=== PATIENT | male | born 1980 | race Caucasian/White ===

== ENCOUNTER 2020-03-28 18:40 | Inpatient (IN) | payer OTHER ==
--- NOTE | 2020-03-28 18:59 | PDOC ---
Rapid Medical Evaluation Time Seen by Provider: 03/28/20 18:53 Medical Evaluation: Allergies Allergy/AdvReac Type Severity Reaction Status Date / Time No Known Allergies Allergy Verified 03/28/20 18:53 03/28/20 18:53 Pt with pmh of CHF with defibrillator, presents for evaluation of abdominal pain. States he finished a recent course of antibiotics. Admits to constipation Exam: Diffuse abdominal tenderness, worse in the LLQ Orders: labs, IV Pt to proceed to the ER for further evaluation Discharge Disposition - Diagnosis Abdominal pain Qualifiers: Abdominal location: unspecified location Qualified Code(s): R10.9 - Unspecified abdominal pain - Referrals - Patient Instructions - Post Discharge Activity
--- NOTE | 2020-03-28 20:21 | PDOC ---
History of Present Illness - General Chief Complaint: Pain, Acute Stated Complaint: ABDOMINAL PAIN Time Seen by Provider: 03/28/20 18:53 History Source: Patient Exam Limitations: No Limitations - History of Present Illness Travel History: No Initial Comments: 03/28/20 20:16 HISTORY OF PRESENT ILLNESS: 39-year-old male past medical history of A. fib, V. fib arrest, recently diagnosed CHF presents emergency department for evaluation of 20 episodes of loose watery stools since 12:00 noon. Patient is concerned that he is starting to have excoriations around his anus and was recently started on Eliquis. Patient reports when his AICD was placed he was prescribed Keflex for prophylactic treatment of potential infection. He denies any nausea or vomiting. No recent travel or sick contacts. PAST MEDICAL HISTORY: See HPI SURGICAL HISTORY: Denies ALLERGIES: No known drug allergies REVIEW OF SYSTEMS General/Constitutional: Denies fever or chills. Denies weakness, weight change. HEENT: Denies change in vision. Denies ear pain or discharge. Denies sore throat. Cardiovascular: Denies chest pain or shortness of breath. Respiratory: Denies cough, wheezing, or hemoptysis. Gastrointestinal: Genitourinary: Denies dysuria, frequency, or change in urination. Musculoskeletal: Denies joint or muscle swelling or pain. Denies neck or back pain. Skin and breasts: Denies rash or easy bruising. Neurologic: Denies headache, vertigo, loss of consciousness, or loss of sensation. Psychiatric: Denies depression or anxiety. Endocrine: Denies increased thirst. Denies abnormal weight change. Hematologic/Lymphatic: Denies anemia, easy bleeding, or history of blood clots. Allergic/Immunologic: Denies hives or skin allergy. Denies latex allergy. PHYSICAL EXAM General Appearance: Well-appearing, appropriately dressed. No apparent distress, no intoxication. Respiratory/Chest: Lungs CTAB. No shortness of breath, chest tenderness, respiratory distress, accessory muscle use. No crackles, rales, rhonchi, stridor, wheezing, dullness Cardiovascular: RRR. S1, S2. No JVD, murmur, bradycardia, tachycardia. Vascular Pulses: Dorsalis-Pedis (R): 2+, Dorsalis-Pedis (L): 2+ Gastrointestinal/Abdominal: Normal bowel sounds. Abdomen soft, non-distended. Diffuse lower abdominal tenderness worse on the left compared to right. Tenderness or rebound tenderness. No organomegaly, pulsatile mass, guarding, hernia, hepatomegaly, splenomegaly. Negative psoas, obturator and Rovsing signs. Past History - Medical History Allergies/Adverse Reactions: Allergies Allergy/AdvReac Type Severity Reaction Status Date / Time No Known Allergies Allergy Verified 03/28/20 18:53 Home Medications: Ambulatory Orders NK [No Known Home Medication] 03/02/20 Anemia: No Asthma: No Cancer: No Cardiac Disorders: Yes (DFIB PLACED) CVA: No COPD: No CHF: No Dementia: No Diabetes: No GI Disorders: No Disorders: No HTN: Yes Hypercholesterolemia: No Liver Disease: No Seizures: No Thyroid Disease: No - Surgical History Cardiac Surgery: Yes (DFIB PLACED) - Immunization History Immunization Up to Date: Yes - Psycho-Social/Smoking History Smoking History: Never smoked Have you smoked in the past 12 months: No Number of Cigarettes Smoked Daily: 0 - Substance Abuse Hx (Audit-C & DAST Scrn) How often the patient has a drink containing alcohol: Never Score: In Men: 4 or > Positive; In Women: 3 or > Positive: 0 Screen Result (Pos requires Nsg. Audit-10AR): Negative In the last yr the pt used illegal drug/Rx for NonMed reason: No Score: Yes response is considered Positive: 0 Screen Result (Positive result requires Nsg. DAST-10): Negative *Physical Exam - Vital Signs Last Vital Signs Temp Pulse Resp BP Pulse Ox 98.4 F 96 H 20 125/79 100 03/28/20 18:53 03/28/20 18:53 03/28/20 18:53 03/28/20 18:53 03/28/20 18:53 ED Treatment Course - LABORATORY CBC & Chemistry Diagram: 03/28/20 20:50 03/28/20 20:50 Medical Decision Making - Medical Decision Making 03/28/20 20:20 A/P: 39-year-old male with recent diagnosis of heart failure status post AICD started on antibiotics prophylactically after surgery. Now with 20 episodes of watery stools since 12:00 noon Physical exam notable for diffuse lower abdominal tenderness. Tenderness worse on the left with guarding present to the left abdomen. Most likely with C. difficile colitis given recent antibiotic use but as tenderness is bilateral I will get a CT abdomen and pelvis with p.o. and IV contrast to rule out appendicitis. Labs per E We will hold off on IV fluids now as patient has been started on spironolactone as well as torsemide Reassess 03/29/20 00:49 Laboratory Tests 03/28/20 03/28/20 03/28/20 20:50 20:50 20:50 WBC 15.1 H RBC 3.73 L Hgb 13.0 Hct 37.6 MCV 100.8 H MCH 34.9 H MCHC 34.6 RDW 17.9 H Plt Count 267 D MPV 8.4 Absolute Neuts (auto) 11.5 H Neutrophils % 76.2 Lymphocytes % 12.4 Monocytes % 10.4 H Eosinophils % 0.4 D Basophils % 0.6 Nucleated RBC % 0 PT with INR 16.70 H INR 1.41 H Sodium 134 L Potassium 3.5 Chloride 97 L Carbon Dioxide 28 Anion Gap 9 BUN 7.6 Creatinine 0.9 Est GFR (CKD-EPI)AfAm 125.13 Est GFR (CKD-EPI)NonAf 107.97 Random Glucose 107 H Calcium 9.6 Total Bilirubin 1.5 H D AST 37 ALT 34 Alkaline Phosphatase 175 H Total Protein 7.7 Albumin 3.7 Urine Color Urine Appearance Urine pH Ur Specific [place] Urine Protein Urine Glucose (UA) Urine Ketones Urine Blood Urine Nitrite Urine Bilirubin Urine Urobilinogen Ur Leukocyte Esterase 03/28/20 23:15 WBC RBC Hgb Hct MCV MCH MCHC RDW Plt Count MPV Absolute Neuts (auto) Neutrophils % Lymphocytes % Monocytes % Eosinophils % Basophils % Nucleated RBC % PT with INR INR Sodium Potassium Chloride Carbon Dioxide Anion Gap BUN Creatinine Est GFR (CKD-EPI)AfAm Est GFR (CKD-EPI)NonAf Random Glucose Calcium Total Bilirubin AST ALT Alkaline Phosphatase Total Protein Albumin Urine Color Dk yellow Urine Appearance Clear Urine pH 5.5 Ur Specific [place] 1.017 Urine Protein Trace Urine Glucose (UA) Negative Urine Ketones Trace H Urine Blood Negative Urine Nitrite Negative Urine Bilirubin Negative Urine Urobilinogen 1.0 Ur Leukocyte Esterase Negative CT scan is read by imaging on-call: Lung bases are clear. The visualized cardiac chambers are normal size and configuration. Normal liver, gallbladder, pancreas, spleen, adrenal glands and kidneys. The stomach and small bowel are normal. Diffuse liquid stool is noted without colonic wall thickening which may indicate a diarrheal illness. There is no aortic aneurysm. There is no significant retroperitoneal lymphadenopathy. Mild lower abdominal and pelvic retroperitoneal edema is nonspecific. No focal hematoma or abscess. No evidence of arterial or venous clots. The appendix is normal. Urinary bladder and prostate glands are normal. No pelvic free fluid is identified. There is no significant pelvic lymphadenopathy. 03/29/20 02:23 Case d/w hospitalist who accepts patient to M/S obs under Dr. Oliver. 03/29/20 03:10 EKG sinus rhythm with rate of 82. Prolonged QTC 486 ms. T wave inversions noted in V2, V3, V4. Given patient's history these are likely not new but I will add cardiac profile. Discharge - Discharge Information Problems reviewed: Yes Clinical Impression/Diagnosis: Diarrhea of presumed infectious origin Condition: Fair - Admission Yes - Follow up/Referral - Patient Discharge Instructions - Post Discharge Activity
--- NOTE | 2020-03-28 20:23 | PDOC ---
*Physical Exam - Vital Signs Last Vital Signs Temp Pulse Resp BP Pulse Ox 98.4 F 96 H 20 125/79 100 03/28/20 18:53 03/28/20 18:53 03/28/20 18:53 03/28/20 18:53 03/28/20 18:53 ED Treatment Course - LABORATORY CBC & Chemistry Diagram: 03/28/20 20:50 03/28/20 20:50 Medical Decision Making - Medical Decision Making 03/28/20 20:23 Patient seen by the advanced practice provider under my supervision. Ancillary testing reviewed as necessary. I agree with plan as outlined by the advanced practice provider. Discharge - Discharge Information Problems reviewed: Yes Clinical Impression/Diagnosis: Abdominal pain Qualifiers: Abdominal location: unspecified location Qualified Code(s): R10.9 - Unspecified abdominal pain - Follow up/Referral - Patient Discharge Instructions - Post Discharge Activity
[2020-03-28 21:24] LABS: BASO % 0.6 % (0-2.0); EOS % 0.4 % (0-4.5); HEMATOCRIT 37.6 % (35.4-49); LYMPH % 12.4 % (8-40); MCH 34.9 pg (25.7-33.7); MCHC 34.6 g/dl (32.0-35.9); MEAN CELL VOLUME 100.8 fl (80-96); MEAN PLT VOLUME 8.4 fl (7.5-11.1); MONO % 10.4 % (3.8-10.2); NEUT % 76.2 % (42.8-82.8); PLATELET COUNT 267 K/MM3 (134-434); RBC 3.73 M/mm3 (4.00-5.60); RDW 17.9 % (11.9-15.9); WHITE BLOOD COUNT 15.1 K/mm3 (4.0-10.0)
[2020-03-28 21:32] LABS: ALBUMIN 3.7 g/dl (3.4-5.0); BILIRUBIN,TOTAL 1.5 mg/dL (0.2-1); BLOOD UREA NITROGEN 7.6 mg/dL (7-18); CALCIUM 9.6 mg/dL (8.5-10.1); CREATININE 0.9 mg/dL (0.55-1.3); POTASSIUM 3.5 mmol/L (3.5-5.1); TOT PROT 7.7 g/dl (6.4-8.2)
[2020-03-28] MEDS ORDERED: LORazepam 2 MG/ML SDV VIAL ONE (21:43)
[2020-03-28 21:47] LABS: INR 1.41 (0.83-1.09); PROTHROMBIN TIME (PATIENT) 16.7 SEC (9.7-13.0)
[2020-03-28 23:32] LABS: PH,URINE 5.5 (5.0-8.0); URINE APPEARANCE CLEAR; URINE BILIRUBIN NEGATIVE (NEGATIVE); URINE COLOR DK YELLOW; URINE GLUCOSE (UA) NEGATIVE (NEGATIVE); URINE KETONE TRACE (NEGATIVE); URINE LEUK ESTERASE NEGATIVE (NEGATIVE); URINE NITRITE NEGATIVE (NEGATIVE); URINE PROTEIN TRACE (NEGATIVE)
[2020-03-29] MEDS ORDERED: SIMETHICONE 80 MG TAB.CHEW (FP) PO PRN (02:57)
[2020-03-29] MEDS ORDERED: LACTATED RINGERS SOLUTION 1,000 ML/1,000 ML INFUS.BAG IV SCH (03:00)
[2020-03-29] MEDS ORDERED: metroNIDAZOLE 500 MG TABLET PO ONE (04:00)
[2020-03-29] MEDS ORDERED: metroNIDAZOLE 250 MG TABLET ONE (04:55)
[2020-03-29] MEDS ORDERED: ACETAMINOPHEN 1000 MG/100 ML VIAL (NON FORMULARY) IVPB ONE (04:55)
[2020-03-29] MEDS ORDERED: VANCOMYCIN 250 MG/5 ML ORAL SOLUTION PO SCH (06:00)
--- NOTE | 2020-03-29 06:08 | PN ---
Teaching Attending Note ATTENDING PHYSICIAN STATEMENT I saw and evaluated the patient. I reviewed the resident's note and discussed the case with the resident. I agree with the resident's findings and plan as documented. SUBJECTIVE: 39 years old M with PMH of A fib , vfib arrest s/p defibrillator presented to ED with watery diarrhea aprox 16 times since yesterday noon associated with cramping abd pain. He also had few episodes of vomiting, non bloody. Patient reports when his AICD was placed he was prescribed Keflex for prophylactic treatment of potential infection. He denies chest pain, shortness of breath, dizziness, LOC, weakness. OBJECTIVE: Last Vital Signs Temp Pulse Resp BP Pulse Ox 98.4 F 78 18 122/80 99 03/28/20 18:53 03/28/20 23:30 03/28/20 23:30 03/28/20 23:30 03/28/20 23:30 GENERAL: Awake, alert, and fully oriented, no acute distress HEAD: No signs of trauma, normocephalic, atraumatic EYES: EOMI, sclera anicteric, conjunctiva clear ENT: Auricles normal inspection, hearing grossly normal, nares patent, oropharynx clear without exudates. Moist mucosa NECK: Normal ROM, no lymphadenopathy LUNGS: No increased work of breathing, symmetrical chest rise, clear to auscultation bilaterally, no wheezes, crackles or rhonchi HEART: Regular rate, regular rhythm, normal S1 and S2, no murmur, peripheral pulses 2+ and equal bilaterally. + AICD present ABDOMEN: Soft, nondistended, mild periumbilcal tenderness MUSCULOSKELETAL: FROM NEUROLOGICAL: Cranial nerves II through XII grossly intact. Normal speech, stable gait, no focal sensorimotor deficits SKIN: Warm, Dry, normal turgor, no rashes or lesions note ASSESSMENT AND PLAN: Acute gastroenteritis R/o C diff infection pMH as above Admit to floor Iv hydration give emperic IV ciprofloxacin and Flagyl Stool studies wbc, ova and parasites C diff check HIV Ct abd pelvis noted. No acute pathology resume home medications DVt ppx
[2020-03-29] MEDS ORDERED: HEPARIN NA (PORCINE) 5,000 UNITS/ML 1ML VIAL ONE ×2 (06:46→15:04)
[2020-03-29] MEDS: HEPARIN NA (PORCINE) 5,000 UNITS/ML 1ML VIAL SQ SCH ×2 (06:51→18:21)
--- NOTE | 2020-03-29 07:26 | HP ---
CHIEF COMPLAINT: 16 episodes of watery diarrhea with abdominal pain PCP: Dr. Gisselle Toscano HISTORY OF PRESENT ILLNESS: 39 year old male patient with past medical history that includes anxiety, CHF (EF 10-15%) with defibrillator, and Afib, who presented to the ED with abdominal pain and 16 episodes of watery diarrhea with some non-bloody vomiting since 12:00 noon. The patient had recently had the defibrillator placed and was prescribed Keflex prophylactically. The patient has tried to self-hydrate himself by drinking a lot of fluid. ER course was notable for: (1) ECG (2) WBC 15.1 (3) Ativan 1mg Recent Travel: Denies PAST MEDICAL HISTORY: CHF, AFib PAST SURGICAL HISTORY: Defibrillator insertion Social History: Smoking: Smoked 2 packs for 1 year (only 2 pack years) Alcohol: 2 bottles of wine daily but reported quitting his alcohol use during his hospital stay Drugs: Used opiates in the past. Denies current use Allergies No Known Allergies Allergy (Verified 03/28/20 18:53) HOME MEDICATIONS: Home Medications Medication Instructions Recorded NK [No Known Home Medication] 03/02/20 REVIEW OF SYSTEMS CONSTITUTIONAL: Absent: fever, chills, diaphoresis CARDIOVASCULAR: Absent: chest pain, palpitations RESPIRATORY: Absent: cough, shortness of breath GASTROINTESTINAL: watery diarrhea, abdominal pain Absent: PHYSICAL EXAMINATION Vital Signs - 24 hr 03/28/20 03/28/20 03/29/20 18:53 23:30 06:34 Temperature 98.4 F 98 F Pulse Rate 96 H Pulse Rate [ 78 82 Left Radial] Respiratory 20 18 16 Rate Blood Pressure 125/79 Blood Pressure 122/80 119/85 [Left Arm] O2 Sat by Pulse 100 99 99 Oximetry (%) GENERAL: Awake, alert, and fully oriented, in no acute distress. HEAD: Normal with no signs of trauma. EYES: Pupils equal, round and reactive to light, extraocular movements intact. No lid lag. EARS, NOSE, THROAT: Ears normal, nares patent, oropharynx clear without exudates. Moist mucous membranes. NECK: Normal range of motion, supple without lymphadenopathy, JVD, or masses. LUNGS: Breath sounds equal, clear to auscultation bilaterally. No wheezes, and no crackles. No accessory muscle use. HEART: Regular rate and rhythm, normal S1 and S2 without murmur, rub or gallop. ABDOMEN: Soft, tender to left lower quadrant, mildly distended, hyperactive bowel sounds, no guarding, no rebound, no masses. MUSCULOSKELETAL: Normal range of motion at all joints. No bony deformities or tenderness. UPPER EXTREMITIES: 2+ pulses, warm, well-perfused. No cyanosis. No clubbing. No peripheral edema. LOWER EXTREMITIES: 2+ pulses, warm, well-perfused. No calf tenderness. No peripheral edema. NEUROLOGICAL: Normal speech. Normal gait. PSYCHIATRIC: Cooperative. Good eye contact. Appropriate mood and affect. SKIN: Warm, dry, normal turgor, no rashes or lesions noted, normal capillary refill. Laboratory Results - last 24 hr 03/28/20 03/28/20 03/28/20 20:50 20:50 20:50 WBC 15.1 H RBC 3.73 L Hgb 13.0 Hct 37.6 MCV 100.8 H MCH 34.9 H MCHC 34.6 RDW 17.9 H Plt Count 267 D MPV 8.4 Absolute Neuts (auto) 11.5 H Neutrophils % 76.2 Lymphocytes % 12.4 Monocytes % 10.4 H Eosinophils % 0.4 D Basophils % 0.6 Nucleated RBC % 0 PT with INR 16.70 H INR 1.41 H Sodium 134 L Potassium 3.5 Chloride 97 L Carbon Dioxide 28 Anion Gap 9 BUN 7.6 Creatinine 0.9 Est GFR (CKD-EPI)AfAm 125.13 Est GFR (CKD-EPI)NonAf 107.97 Random Glucose 107 H Calcium 9.6 Total Bilirubin 1.5 H D AST 37 ALT 34 Alkaline Phosphatase 175 H Troponin I Total Protein 7.7 Albumin 3.7 Urine Color Urine Appearance Urine pH Ur Specific [place] Urine Protein Urine Glucose (UA) Urine Ketones Urine Blood Urine Nitrite Urine Bilirubin Urine Urobilinogen Ur Leukocyte Esterase 03/28/20 03/29/20 23:15 03:23 WBC RBC Hgb Hct MCV MCH MCHC RDW Plt Count MPV Absolute Neuts (auto) Neutrophils % Lymphocytes % Monocytes % Eosinophils % Basophils % Nucleated RBC % PT with INR INR Sodium Potassium Chloride Carbon Dioxide Anion Gap BUN Creatinine Est GFR (CKD-EPI)AfAm Est GFR (CKD-EPI)NonAf Random Glucose Calcium Total Bilirubin AST ALT Alkaline Phosphatase Troponin I < 0.02 Total Protein Albumin Urine Color Dk yellow Urine Appearance Clear Urine pH 5.5 Ur Specific [place] 1.017 Urine Protein Trace Urine Glucose (UA) Negative Urine Ketones Trace H Urine Blood Negative Urine Nitrite Negative Urine Bilirubin Negative Urine Urobilinogen 1.0 Ur Leukocyte Esterase Negative ASSESSMENT/PLAN: 39 year old male patient with past medical history that includes CHF with defibrillator and Afib, who presented to the ED with abdominal pain and 16 episodes of watery diarrhea with some non-bloody vomiting since 12:00 noon. 1. Colitis vs C. Diff. Infection - Antibiotics prescribed recently - WBC count 15.1 - C Diff toxin lab pending - Stool studies wbc, ova, and parasites - Cipro and Flagyl possibly - IV Fluids - HIV - CT A/P - resume home meds - ID consulted # FEN - LR @ 100, Monitoring Electrolytes, Sodium Controlled Diet DVT PPx - Heparin Family Medical History Family History: As Documented Family Hx Coronary Artery Disease: Father Visit type - Emergency Visit Emergency Visit: Yes ED Registration Date: 03/29/20 Care time: The patient presented to the Emergency Department on the above date and was hospitalized for further evaluation of their emergent condition. - New Patient This patient is new to me today: Yes Date on this admission: 03/29/20 - Critical Care Critical Care patient: No ATTENDING PHYSICIAN STATEMENT I saw and evaluated the patient. I reviewed the resident's note and discussed the case with the resident. I agree with the resident's findings and plan as documented. SUBJECTIVE: OBJECTIVE: ASSESSMENT AND PLAN:
[2020-03-29 09:02] LABS: BASO % 1.3 % (0-2.0); HEMATOCRIT 36.2 % (35.4-49); HEMOGLOBIN 12.7 GM/dL (11.7-16.9); LYMPH % 13.2 % (8-40); MEAN CELL VOLUME 99.9 fl (80-96); MEAN PLT VOLUME 7.9 fl (7.5-11.1); MONO % 9.5 % (3.8-10.2); PLATELET COUNT 245 K/MM3 (134-434); RBC 3.63 M/mm3 (4.00-5.60); RDW 18.2 % (11.9-15.9); WHITE BLOOD COUNT 11.1 K/mm3 (4.0-10.0)
[2020-03-29 09:31] LABS: ALBUMIN 3.5 g/dl (3.4-5.0); BILIRUBIN,TOTAL 1.3 mg/dL (0.2-1); BLOOD UREA NITROGEN 6.6 mg/dL (7-18); CALCIUM 9.2 mg/dL (8.5-10.1); CREATININE 0.7 mg/dL (0.55-1.3); POTASSIUM 3.1 mmol/L (3.5-5.1); TOT PROT 7.3 g/dl (6.4-8.2)
--- NOTE | 2020-03-29 09:50 | CON.CARD ---
Consult Consult Specialty:: Cardiology Referred by:: Hospitalist Service Reason for Consultation:: Cardiac evaluation - History of Present Illness Chief Complaint: Diarrhea and abdominal cramps History of Present Illness: Patient is a 39 year old male see last at [facility] in February when he was admitted with new onset AF with RVR and shortness of breath. He had been abusing ETOH and was diagnosed with dilated cardiomyopathy with severely low LVEF 10-15%, severe RV systolic dysfunction, moderate MR, mild to moderate TR. Hospital course was complicated by ETOH withdrawl, hypotension with anuria requiring pressors and eventual transfer to [facility] for further management. He was maintained on Milrinone and Vasopressin. He was intubated with worsening ETOH withdrawl. IABP was placed to improve perfusion and was given broad spectrum antibiotics with development of fever. Patient developed Torsades followed by loss of pulse, ACLS procotol initiated and ROSC was achieved with CPR. Lidocaine drip was given and then started on Mexiletine. Cardiac catheterization was performed which showed no evidence of CAD. Patient was also evaluated by Neurology for worsening delirium. Patient then had ICD implanted on 03/17/20. He was given Entresto, Metoprolol and Spironolactone and was discharged 1 week ago. HE presents today with worsening abdominal cramps and watery diarrhea. He denies chest pain, shortness of breath or palpitations. He denies fever or chills. He denies headache or lightheadedness. - History Source History Provided By: Patient, Medical Record Limitations to Obtaining History: No Limitations - Past Medical History Cardio/Vascular: Yes: AFIB, CHF (Dilated cardiomyopathy with severe LV systolic dysfunction), HTN, Other (Torsades, VT s/p ICD) Psych: Yes: Addictions (Alcohol) - Past Surgical History Additional Surgical History: ICD implantation - Alcohol/Substance Use Hx Alcohol Use: Yes (2 bottles of wine per day with his (past 5 years)) History of Substance Use: reports: None - Smoking History Smoking history: Never smoked Have you smoked in the past 12 months: No Aproximately how many cigarettes per day: 0 - Social History Usual Living Arrangement: With Spouse ADL: Independent History of Recent Travel: No Home Medications - Allergies Allergies/Adverse Reactions: Allergies Allergy/AdvReac Type Severity Reaction Status Date / Time No Known Allergies Allergy Verified 03/28/20 18:53 - Home Medications Home Medications: Ambulatory Orders NK [No Known Home Medication] 03/02/20 Family Medical History Family Hx Cancer: Mother (BCA) Family Hx Coronary Artery Disease: Father Review of Systems - Review of Systems Constitutional: denies: Chills, Fever Cardiovascular: denies: Chest Pain, Palpitations, Shortness of Breath Respiratory: denies: Cough, Hemoptysis, Orthopnea, PND, SOB, SOB on Exertion Gastrointestinal: reports: Abdominal Pain, Diarrhea. denies: Constipation, Melena, Nausea, Rectal Bleeding, Vomiting Genitourinary: denies: Dysuria, Hematuria Neurological: denies: Dizziness, Headache, Seizure, Syncope Vital Signs: Vital Signs Temperature 98 F 03/29/20 06:34 Pulse Rate 82 03/29/20 06:34 Respiratory Rate 16 03/29/20 06:34 Blood Pressure 119/85 03/29/20 06:34 O2 Sat by Pulse Oximetry (%) 99 03/29/20 06:34 Eyes: Yes: PERRL HENT: Yes: Atraumatic Neck: Yes: Supple Respiratory: Yes: CTA Bilaterally Gastrointestinal: Yes: Normal Bowel Sounds, Tenderness (diffuse tenderness to palpation) Cardiovascular: Yes: Regular Rate and Rhythm JVD: No PMI: Non-Displaced Heart Sounds: Yes: S1, S2. No: Gallop Edema: No - Other Data Labs, Other Data: CBC, BMP 03/29/20 08:30 03/29/20 08:30 INR, PTT INR 1.41 (0.83-1.09) H 03/28/20 20:50 Troponin, BNP 03/29/20 03:23 Troponin I < 0.02 Laboratory Results - last 24 hr 03/28/20 03/28/20 03/28/20 20:50 20:50 20:50 WBC 15.1 H RBC 3.73 L Hgb 13.0 Hct 37.6 MCV 100.8 H MCH 34.9 H MCHC 34.6 RDW 17.9 H Plt Count 267 D MPV 8.4 Absolute Neuts (auto) 11.5 H Neutrophils % 76.2 Lymphocytes % 12.4 Monocytes % 10.4 H Eosinophils % 0.4 D Basophils % 0.6 Nucleated RBC % 0 PT with INR 16.70 H INR 1.41 H Sodium 134 L Potassium 3.5 Chloride 97 L Carbon Dioxide 28 Anion Gap 9 BUN 7.6 Creatinine 0.9 Est GFR (CKD-EPI)AfAm 125.13 Est GFR (CKD-EPI)NonAf 107.97 POC Glucometer Random Glucose 107 H Calcium 9.6 Total Bilirubin 1.5 H D AST 37 ALT 34 Alkaline Phosphatase 175 H Troponin I Total Protein 7.7 Albumin 3.7 Urine Color Urine Appearance Urine pH Ur Specific [place] Urine Protein Urine Glucose (UA) Urine Ketones Urine Blood Urine Nitrite Urine Bilirubin Urine Urobilinogen Ur Leukocyte Esterase 03/28/20 03/29/20 03/29/20 23:15 03:23 07:35 WBC RBC Hgb Hct MCV MCH MCHC RDW Plt Count MPV Absolute Neuts (auto) Neutrophils % Lymphocytes % Monocytes % Eosinophils % Basophils % Nucleated RBC % PT with INR INR Sodium Potassium Chloride Carbon Dioxide Anion Gap BUN Creatinine Est GFR (CKD-EPI)AfAm Est GFR (CKD-EPI)NonAf POC Glucometer 113 Random Glucose Calcium Total Bilirubin AST ALT Alkaline Phosphatase Troponin I < 0.02 Total Protein Albumin Urine Color Dk yellow Urine Appearance Clear Urine pH 5.5 Ur Specific [place] 1.017 Urine Protein Trace Urine Glucose (UA) Negative Urine Ketones Trace H Urine Blood Negative Urine Nitrite Negative Urine Bilirubin Negative Urine Urobilinogen 1.0 Ur Leukocyte Esterase Negative 03/29/20 03/29/20 08:30 08:30 WBC 11.1 H RBC 3.63 L Hgb 12.7 Hct 36.2 MCV 99.9 H MCH 35.0 H MCHC 35.0 RDW 18.2 H Plt Count 245 MPV 7.9 Absolute Neuts (auto) 8.4 H Neutrophils % 75.0 Lymphocytes % 13.2 Monocytes % 9.5 Eosinophils % 1.0 D Basophils % 1.3 Nucleated RBC % 0 PT with INR INR Sodium 132 L Potassium 3.1 L Chloride 98 Carbon Dioxide 20 L Anion Gap 14 BUN 6.6 L Creatinine 0.7 Est GFR (CKD-EPI)AfAm 138.75 Est GFR (CKD-EPI)NonAf 119.71 POC Glucometer Random Glucose 104 Calcium 9.2 Total Bilirubin 1.3 H AST 44 H ALT 34 Alkaline Phosphatase 156 H Troponin I Total Protein 7.3 Albumin 3.5 Urine Color Urine Appearance Urine pH Ur Specific [place] Urine Protein Urine Glucose (UA) Urine Ketones Urine Blood Urine Nitrite Urine Bilirubin Urine Urobilinogen Ur Leukocyte Esterase Sinus rhythm with T abnormality anterior leads, prolonged QT Imaging - Results Chest X-ray: Report Reviewed (Atelectasis) Cat Scan: Report Reviewed (Abdominal CT: hepatosplenomegaly) EKG: Report Reviewed Problem List - Problems (1) Systolic dysfunction with acute on chronic heart failure Code(s): I50.23 - ACUTE ON CHRONIC SYSTOLIC (CONGESTIVE) HEART FAILURE (2) Presence of implantable cardioverter-defibrillator (ICD) Code(s): Z95.810 - PRESENCE OF AUTOMATIC (IMPLANTABLE) CARDIAC DEFIBRILLATOR (3) Ventricular tachycardia Code(s): I47.2 - VENTRICULAR TACHYCARDIA (4) Diarrhea of presumed infectious origin Code(s): R19.7 - DIARRHEA, UNSPECIFIED (5) Cardiomyopathy Code(s): I42.9 - CARDIOMYOPATHY, UNSPECIFIED (6) ETOH abuse Code(s): F10.10 - ALCOHOL ABUSE, UNCOMPLICATED (7) HTN (hypertension) Code(s): I10 - ESSENTIAL (PRIMARY) HYPERTENSION (8) Hyponatremia Code(s): E87.1 - HYPO-OSMOLALITY AND HYPONATREMIA Assessment/Plan 1. Diarrhea and abdominal pain ?C. Diff ?Gastroenteritis 2. Dilated cardiomyopathy with severe LV systolic dysfunction 3. Post ICD after episode of VT/Torsades 4. Substance abuse with ETOH 5. PAF currently in sinus rhythm PLAN: 1. Antibiotic to cover possible C. Diff and GI etiology 2. Resume Metoprolol Succinate 25 mg QD and Entresto 24/26 mg BID 3. Resume Spironolactone 25 mg QD and monitor renal function and electrolytes (NA and K) 4. Resume Eliquis 5 mg BID 5. Further cardiac follow up at [facility] upon discharge once stable GI tee. Further plans are to follow Ashwin Larson MD, FACC
[2020-03-29] MEDS ORDERED: CIPROFLOXACIN 500 MG TABLET (RESTRICTED TO ID) PO SCH (10:00)
--- NOTE | 2020-03-29 10:16 | EKG ---
Test Reason : Blood Pressure : / mmHG Vent. Rate : 082 BPM Atrial Rate : 082 BPM P-R Int : 136 ms QRS Dur : 096 ms QT Int : 416 ms P-R-T Axes : 058 -12 045 degrees QTc Int : 486 ms NORMAL SINUS RHYTHM T WAVE ABNORMALITY, CONSIDER ANTERIOR ISCHEMIA PROLONGED QT ABNORMAL ECG WHEN COMPARED WITH ECG OF 29-FEB-2020 20:28, SIGNIFICANT CHANGES HAVE OCCURRED Confirmed by MD Jessee, Car ([id number]) on 03/29/2020 10:15:59 AM Referred By: Confirmed By:Car Hooks MD
--- NOTE | 2020-03-29 11:28 | PN ---
Progress Note (short form) - Note Progress Note: ID CONSULT DICTATED COLITIS ? C DIFFICILE ? ENTERIC PATHOGENS LEUKOCYTOSIS R/O SEPSIS SECONDARY TO GI SOURCE S/P RECENT AICD AWAIT CULTURES, STOOL STUDIES EMPIRIC CEFTRIAXONE/FLAGYL + PO VANCOMYCIN
[2020-03-29] MEDS ORDERED: CEFTRIAXONE 2 GM in DEXTROSE 5%-WATER 100 ML IVPB SCH (11:30)
[2020-03-29] MEDS ORDERED: POTASSIUM CHLORIDE TABS 20 MEQ TABLET.ER (FP) PO ONE ×3 (11:30→20:00)
--- NOTE | 2020-03-29 11:32 | CONS ---
INFECTIOUS DISEASE CONSULTATION DATE OF CONSULTATION: DATE OF DICTATION: 03/29/2020 HISTORY: The patient is a 39-year-old male with a recently diagnosed cardiomyopathy and atrial fibrillation, status post implanted defibrillator, evaluated for diarrhea. The patient was hospitalized at [facility] from February 28 through March 02 after presenting with congestive heart failure and new onset atrial fibrillation. He was found to have a dilated cardiomyopathy presumably secondary to EtOH. His course was complicated by atrial fibrillation. He required transfer to [facility] where he was hospitalized for approximately 1 month. He reports at that time his course was complicated by respiratory failure requiring intubation. He ultimately required placement of an implanted defibrillator. The patient was discharged 1 week ago on Sunday, March 22, 2020. He reports being discharged on Keflex as antibiotic prophylaxis. Upon discharge the patient began to develop diarrhea. He reports multiple episodes of nonbloody diarrhea. His symptoms worsened. One day prior to admission he developed worsening abdominal pain mostly in the lower quadrants bilaterally, left greater than right, associated with multiple bouts of nonbloody diarrhea. He denied any vomiting or associated fever or chills. He presented to the emergency room where he was noted to have an elevated white blood cell count. CAT scan of the abdomen and pelvis showed some retroperitoneal edema, but no evidence of colitis. The appendix appeared normal. He was empirically treated with p.o. vancomycin, IV ciprofloxacin and Flagyl. At the present time he reports abdominal pain. He describes it as 10 out of 10 mostly in the lower quadrants bilaterally. He had 2 loose bowel movements today nonbloody. He denied any nausea or vomiting. He has been afebrile. Cultures and stool studies have been sent. He lives at home with his . His is well without any GI symptoms. He has not traveled since his discharge from the hospital. PAST MEDICAL HISTORY: Positive for recent diagnosis of cardiomyopathy, atrial fibrillation, alcohol abuse. ALLERGIES: No known allergies. MEDICATIONS AT THE PRESENT TIME: Include ciprofloxacin, Flagyl, heparin, Tylenol, melatonin. SOCIAL HISTORY: Lives at home with his . 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 He has not been working since the onset of the pandemic. He has been out of work for approximately 7 months. He is a nonsmoker. He reports alcohol use, approximately 2 bottles of wine per day with his . No known HIV risk factors. HIV test is pending. He is and has small children with whom he has limited contact. SYSTEMS REVIEW: Neurologic: No loss of consciousness, seizure activity, focal weakness. Cardiac: As per HPI. Respiratory: As per HPI. Gastrointestinal: As per HPI. Genitourinary: Negative for urinary tract infection. LABORATORY DATA: White count 15.1, neutrophils 76, lymphocytes 12, monocytes 10, hematocrit 37.6, platelets 267. Creatinine 0.7, total bilirubin 1.3, alkaline phosphatase 156, AST 44. Urine analysis negative. Chest x-ray shows atelectasis at the right base. CAT scan of the abdomen as described. Stool studies are pending. PHYSICAL EXAMINATION: General: He is awake and alert. He is in no acute distress. Vital Signs: Temperature 98, blood pressure 119/85, pulse 82 regular, respirations 16 per minute. HEENT: Sclerae are anicteric. Heart: Sounds S1, S2. Lungs: Clear. Abdomen: Positive bowel sounds. Abdomen is soft. There is lower quadrant tenderness to deep palpation. Extremities: Negative for edema. There is desquamation of the plantar aspects of his feet bilaterally. IMPRESSION: 1. Colitis, rule out infectious colitis versus Clostridium difficile. 2. Leukocytosis, rule out sepsis secondary to gastrointestinal source. 3. Status post recent defibrillator placement. 4. Cardiomyopathy. Obtain blood cultures, stool cultures, stool ova and parasites, Clostridium difficile, stool for giardia, rotavirus and norovirus. Pending sepsis workup empiric antibiotic coverage with ceftriaxone and Flagyl intravenously and p.o. vancomycin. Will follow. Thank you for the kind referral. APARNA IRVING M.D. [id number]
[2020-03-29] MEDS ORDERED: traMADol HCL 50 MG TABLET PO ONE (13:59)
[2020-03-29] MEDS ORDERED: metoPROLOL SUCCINATE 25 MG TAB.SR.24H (FP) ONE (15:03)
[2020-03-29] MEDS ORDERED: traMADol HCL 50 MG TABLET ONE (15:03)
[2020-03-29] MEDS: metoPROLOL SUCCINATE 25 MG TAB.SR.24H (FP) PO SCH (15:14)
--- NOTE | 2020-03-29 15:20 | PN ---
Teaching Attending Note Name of Resident: Rita Rodgers ATTENDING PHYSICIAN STATEMENT I saw and evaluated the patient. I reviewed the resident's note and discussed the case with the resident. I agree with the resident's findings and plan as documented. SUBJECTIVE: Complains of abdominal discomfort and watery diarrhea - no fever/chills. Nausea/vomiting resolving. OBJECTIVE: Afebrile, Hemodynamically stable Last Vital Signs Temp Pulse Resp BP Pulse Ox 98.6 F 86 18 155/91 96 03/29/20 12:00 03/29/20 12:00 03/29/20 12:00 03/29/20 12:03/29/20 12:00 HEENT - Atraumatic, Normocephalic. Heart - S1, S2, RRR. AICD incision site mild tenderness, clean Lungs - clear to auscultation Abdomen - soft, mild generalized tenderness. Bowel Sounds normal. Extremities - no edema, no calf tenderness. Neuro - AAO x 3. Tone/Power normal all extremities. Mild tremor outstretched arms. Anxious+ Laboratory Results - last 24 hr 03/28/20 03/28/20 03/28/20 20:50 20:50 20:50 WBC 15.1 H RBC 3.73 L Hgb 13.0 Hct 37.6 MCV 100.8 H MCH 34.9 H MCHC 34.6 RDW 17.9 H Plt Count 267 D MPV 8.4 Absolute Neuts (auto) 11.5 H Neutrophils % 76.2 Lymphocytes % 12.4 Monocytes % 10.4 H Eosinophils % 0.4 D Basophils % 0.6 Nucleated RBC % 0 PT with INR 16.70 H INR 1.41 H Sodium 134 L Potassium 3.5 Chloride 97 L Carbon Dioxide 28 Anion Gap 9 BUN 7.6 Creatinine 0.9 Est GFR (CKD-EPI)AfAm 125.13 Est GFR (CKD-EPI)NonAf 107.97 POC Glucometer Random Glucose 107 H Calcium 9.6 Total Bilirubin 1.5 H D AST 37 ALT 34 Alkaline Phosphatase 175 H Troponin I Total Protein 7.7 Albumin 3.7 Urine Color Urine Appearance Urine pH Ur Specific [place] Urine Protein Urine Glucose (UA) Urine Ketones Urine Blood Urine Nitrite Urine Bilirubin Urine Urobilinogen Ur Leukocyte Esterase 03/28/20 03/29/20 03/29/20 23:15 03:23 07:35 WBC RBC Hgb Hct MCV MCH MCHC RDW Plt Count MPV Absolute Neuts (auto) Neutrophils % Lymphocytes % Monocytes % Eosinophils % Basophils % Nucleated RBC % PT with INR INR Sodium Potassium Chloride Carbon Dioxide Anion Gap BUN Creatinine Est GFR (CKD-EPI)AfAm Est GFR (CKD-EPI)NonAf POC Glucometer 113 Random Glucose Calcium Total Bilirubin AST ALT Alkaline Phosphatase Troponin I < 0.02 Total Protein Albumin Urine Color Dk yellow Urine Appearance Clear Urine pH 5.5 Ur Specific [place] 1.017 Urine Protein Trace Urine Glucose (UA) Negative Urine Ketones Trace H Urine Blood Negative Urine Nitrite Negative Urine Bilirubin Negative Urine Urobilinogen 1.0 Ur Leukocyte Esterase Negative 03/29/20 03/29/20 08:30 08:30 WBC 11.1 H RBC 3.63 L Hgb 12.7 Hct 36.2 MCV 99.9 H MCH 35.0 H MCHC 35.0 RDW 18.2 H Plt Count 245 MPV 7.9 Absolute Neuts (auto) 8.4 H Neutrophils % 75.0 Lymphocytes % 13.2 Monocytes % 9.5 Eosinophils % 1.0 D Basophils % 1.3 Nucleated RBC % 0 PT with INR INR Sodium 132 L Potassium 3.1 L Chloride 98 Carbon Dioxide 20 L Anion Gap 14 BUN 6.6 L Creatinine 0.7 Est GFR (CKD-EPI)AfAm 138.75 Est GFR (CKD-EPI)NonAf 119.71 POC Glucometer Random Glucose 104 Calcium 9.2 Total Bilirubin 1.3 H AST 44 H ALT 34 Alkaline Phosphatase 156 H Troponin I Total Protein 7.3 Albumin 3.5 Urine Color Urine Appearance Urine pH Ur Specific [place] Urine Protein Urine Glucose (UA) Urine Ketones Urine Blood Urine Nitrite Urine Bilirubin Urine Urobilinogen Ur Leukocyte Esterase Current Medications Generic Name Dose Route Start Last Admin Trade Name Freq PRN Reason Stop Dose Admin Apixaban 5 mg 03/29/20 12:45 Eliquis - PO BID JIMMY Heparin Sodium (Porcine) 5,000 unit 03/29/20 06:00 03/29/20 06:51 Heparin - SQ 5,000 unit TID JIMMY Administration Melatonin 10 mg 03/29/20 22:00 Melatonin PO HS JIMMY Metoprolol Succinate 25 mg 03/29/20 12:30 Toprol Xl - PO DAILY JIMMY Potassium Chloride 40 meq 03/29/20 20:00 K-Dur - PO 08/25/20 20:01 ONCE ONE Sacubitril/Valsartan 1 tab 03/29/20 12:30 Entresto 24 Mg-26 Mg Tablet PO BID [facility] Spironolactone 25 mg 03/30/20 10:00 Aldactone - PO DAILY [facility] Vancomycin HCl 125 mg 03/29/20 12:00 Vancomycin Oral Solution PO Q6HPO [facility] ASSESSMENT AND PLAN: 39 year old male with history of prior substance abuse (Alcohol, cocaine, heroin), Anxiety, Chronic Systolic CHF (EF 10-15%) s/p AICD, Atrial Fibrillation on Eliquis, who presented to the ED with abdominal pain, and profuse watery diarrhea after recent prophylactic Abx after AICD placement. CT A/P - no acute intra-abdominal pathology, retroperitoneal edema, diffuse fatty infiltrate. 1. Diarrhea secondary to Cdiff infection Stool positive for Cdiff Leukocytosis improving, Afebrile. Oral hydration adequate for now PO Vancomycin 2. Chronic Systolic CHF/Cardiomyopathy s/p AICD Evaluated by Cardiology - to resume BB, Entresto, Spironolactone. 3. Atrial fibrillation - resume BB and Eliquis. 4. Hx Substance abuse - reports remote history of alcohol, cocaine, heroin. Mild tremor, no overt withdrawal symptoms, will monitor. Will continue MVI, Thiamine, Folic Acid. 5. Anxiety - will confirm and resume home meds. DVT Px - on Eliquis.
--- NOTE | 2020-03-29 15:47 | PN ---
Physical Exam: SUBJECTIVE: Patient seen and examined. Still complaining of watery diarrhea and abdominal pain. Nausea/vomiting has resolved. Denies any f/c. Pt also states he is anxious when he is in the hospital. OBJECTIVE: Vital Signs Period Temp Pulse Resp BP Sys/Andrea Pulse Ox Last 24 Hr 98 F-98.6 F 78-96 16-20 119-155/79-91 96-100 GENERAL: The patient is awake, alert, and fully oriented, in no acute distress. Anxious HEAD: Normal with no signs of trauma. EYES: PERRL, extraocular movements intact, sclera anicteric, conjunctiva clear. No ptosis. ENT: Ears normal, nares patent, oropharynx clear without exudates, moist mucous membranes. NECK: Trachea midline, full range of motion, supple. LUNGS: Breath sounds equal, clear to auscultation bilaterally, no wheezes, no crackles, no accessory muscle use. HEART: Regular rate and rhythm, S1, S2 without murmur, rub or gallop. AICD incision site ABDOMEN: Mild tender to palpation diffusely. Soft, nondistended, normoactive bowel sounds, no guarding, no rebound, no hepatosplenomegaly, no masses. EXTREMITIES: 2+ pulses, warm, well-perfused, no edema. NEUROLOGICAL: Cranial nerves II through XII grossly intact. Normal speech, gait not observed. Anxious PSYCH: Normal mood, normal affect. SKIN: Warm, dry, normal turgor, no rashes or lesions noted Laboratory Results - last 24 hr 03/28/20 03/28/20 03/28/20 20:50 20:50 20:50 WBC 15.1 H RBC 3.73 L Hgb 13.0 Hct 37.6 MCV 100.8 H MCH 34.9 H MCHC 34.6 RDW 17.9 H Plt Count 267 D MPV 8.4 Absolute Neuts (auto) 11.5 H Neutrophils % 76.2 Lymphocytes % 12.4 Monocytes % 10.4 H Eosinophils % 0.4 D Basophils % 0.6 Nucleated RBC % 0 PT with INR 16.70 H INR 1.41 H Sodium 134 L Potassium 3.5 Chloride 97 L Carbon Dioxide 28 Anion Gap 9 BUN 7.6 Creatinine 0.9 Est GFR (CKD-EPI)AfAm 125.13 Est GFR (CKD-EPI)NonAf 107.97 POC Glucometer Random Glucose 107 H Calcium 9.6 Total Bilirubin 1.5 H D AST 37 ALT 34 Alkaline Phosphatase 175 H Troponin I Total Protein 7.7 Albumin 3.7 Urine Color Urine Appearance Urine pH Ur Specific [place] Urine Protein Urine Glucose (UA) Urine Ketones Urine Blood Urine Nitrite Urine Bilirubin Urine Urobilinogen Ur Leukocyte Esterase 03/28/20 03/29/20 03/29/20 23:15 03:23 07:35 WBC RBC Hgb Hct MCV MCH MCHC RDW Plt Count MPV Absolute Neuts (auto) Neutrophils % Lymphocytes % Monocytes % Eosinophils % Basophils % Nucleated RBC % PT with INR INR Sodium Potassium Chloride Carbon Dioxide Anion Gap BUN Creatinine Est GFR (CKD-EPI)AfAm Est GFR (CKD-EPI)NonAf POC Glucometer 113 Random Glucose Calcium Total Bilirubin AST ALT Alkaline Phosphatase Troponin I < 0.02 Total Protein Albumin Urine Color Dk yellow Urine Appearance Clear Urine pH 5.5 Ur Specific [place] 1.017 Urine Protein Trace Urine Glucose (UA) Negative Urine Ketones Trace H Urine Blood Negative Urine Nitrite Negative Urine Bilirubin Negative Urine Urobilinogen 1.0 Ur Leukocyte Esterase Negative 03/29/20 03/29/20 08:30 08:30 WBC 11.1 H RBC 3.63 L Hgb 12.7 Hct 36.2 MCV 99.9 H MCH 35.0 H MCHC 35.0 RDW 18.2 H Plt Count 245 MPV 7.9 Absolute Neuts (auto) 8.4 H Neutrophils % 75.0 Lymphocytes % 13.2 Monocytes % 9.5 Eosinophils % 1.0 D Basophils % 1.3 Nucleated RBC % 0 PT with INR INR Sodium 132 L Potassium 3.1 L Chloride 98 Carbon Dioxide 20 L Anion Gap 14 BUN 6.6 L Creatinine 0.7 Est GFR (CKD-EPI)AfAm 138.75 Est GFR (CKD-EPI)NonAf 119.71 POC Glucometer Random Glucose 104 Calcium 9.2 Total Bilirubin 1.3 H AST 44 H ALT 34 Alkaline Phosphatase 156 H Troponin I Total Protein 7.3 Albumin 3.5 Urine Color Urine Appearance Urine pH Ur Specific [place] Urine Protein Urine Glucose (UA) Urine Ketones Urine Blood Urine Nitrite Urine Bilirubin Urine Urobilinogen Ur Leukocyte Esterase Active Medications Generic Name Dose Route Start Last Admin Trade Name Freq PRN Reason Stop Dose Admin Apixaban 5 mg 03/29/20 12:45 Eliquis - PO BID JIMMY Folic Acid 1 mg 03/29/20 15:30 Folic Acid - PO DAILY JIMMY Melatonin 10 mg 03/29/20 22:00 Melatonin PO HS JIMMY Metoprolol Succinate 25 mg 03/29/20 12:30 03/29/20 15:14 Toprol Xl - PO 25 mg DAILY [facility] Administration Multivitamins/Minerals/Vitamin C 1 tab 03/29/20 15:30 Tab-A-Vit - PO DAILY [facility] Potassium Chloride 40 meq 03/29/20 20:00 K-Dur - PO 03/29/20 20:01 ONCE ONE Sacubitril/Valsartan 1 tab 03/29/20 12:30 Entresto 24 Mg-26 Mg Tablet PO BID [facility] Spironolactone 25 mg 03/30/20 10:00 Aldactone - PO DAILY [facility] Thiamine HCl 100 mg 03/29/20 15:30 Vitamin B1 - PO DAILY JIMMY Vancomycin HCl 125 mg 03/29/20 12:00 Vancomycin Oral Solution PO Q6HPO [facility] ASSESSMENT/PLAN: Pt is a 39 year old male with PMHx of HFrEF s/p AICD palcement, A fib, history of substance abuse presenting with multiple bouts of diarrhea daily after being on ppx Keflex for AICD placement. Cultures positive for C diff. #Diarrhea 2/2 to C diff -Recent Keflex use - prophylaxis for AICD placement -Pt still complaining of multiple bouts of watery diarrhea -Cultures positive for C diff -Was given Rocephin and flagyl -Only on PO vancomycin currently #Chronic HFrEF s/p AICD placement -Recent AICD placement for HFrEF and EF 10-15% -Seen by Cardio (Dr. Og); resume metoprolol succinate 25mgQD, entresto 24/26 mg BID, spironolactone 25mg QD #Atrial fibrillation -Per cardio, resume Eliquis 5mg BID and metoprolol succinate 25mgQD #Hx of substance abuse -Daily drinking history prior to surgery, remote cocaine and heroin use per patient; continue to monitor for withdrawal sx -Mild tremor noted -Thiamine and folate and multivitamins for alcohol FEN: -Sodium controlled diet -Monitor electrolytes -Avoid fluids Prophylaxis: On eliquis Dispo: Admitted to med-surg. C diff positive, being treated currently with PO vancomycin. Hx of recent AICD placement and CHF, afib being followed by cardio, continued home meds. Visit type - Emergency Visit Emergency Visit: Yes ED Registration Date: 03/29/20 Care time: The patient presented to the Emergency Department on the above date and was hospitalized for further evaluation of their emergent condition. - New Patient This patient is new to me today: Yes Date on this admission: 03/29/20 - Critical Care Critical Care patient: No ATTENDING PHYSICIAN STATEMENT I saw and evaluated the patient. I reviewed the resident's note and discussed the case with the resident. I agree with the resident's findings and plan as documented. SUBJECTIVE: OBJECTIVE: ASSESSMENT AND PLAN:
[2020-03-29] MEDS: VANCOMYCIN 250 MG/5 ML ORAL SOLUTION PO SCH ×2 (16:10→18:54)
[2020-03-29] MEDS: SACUBITRIL/VALSARTAN 24 MG-26 MG TABLET PO SCH ×2 (16:11→23:11)
[2020-03-29] MEDS: APIXABAN 5 MG TABLET PO SCH ×2 (16:11→22:37)
[2020-03-29 17:48] VITALS: BMI 25.5
[2020-03-29] MEDS: FOLIC ACID 1 MG TABLET (FP) PO SCH (18:26)
[2020-03-29] MEDS: MULTIVITAMINS (DAILY MVI) TABLET (FP) PO SCH (18:26)
[2020-03-29] MEDS: THIAMINE HCL 100 MG TABLET (FP) PO SCH (18:27)
[2020-03-29] MEDS ORDERED: PT OWN MED DRAWER 7, Y5N ONE ×2 (18:57→22:39)
[2020-03-29] MEDS: MELATONIN 5 MG TABLETS PO SCH (22:37)
[2020-03-30] MEDS ORDERED: PT OWN MED DRAWER 7, Y5N ONE ×3 (00:45→23:42)
[2020-03-30] MEDS: VANCOMYCIN 250 MG/5 ML ORAL SOLUTION PO SCH ×5 (01:34→23:57)
[2020-03-30] MEDS ORDERED: traMADol HCL 50 MG TABLET PO ONE ×2 (02:10→12:52)
[2020-03-30 07:13] LABS: BASO % 0.8 % (0-2.0); EOS % 1.8 % (0-4.5); HEMOGLOBIN 12.5 GM/dL (11.7-16.9); LYMPH % 13.8 % (8-40); MCH 34.5 pg (25.7-33.7); MCHC 34.8 g/dl (32.0-35.9); MEAN CELL VOLUME 99.3 fl (80-96); MEAN PLT VOLUME 8.1 fl (7.5-11.1); MONO % 11.6 % (3.8-10.2); PLATELET COUNT 229 K/MM3 (134-434); RBC 3.63 M/mm3 (4.00-5.60); RDW 17.4 % (11.9-15.9); WHITE BLOOD COUNT 9.3 K/mm3 (4.0-10.0)
[2020-03-30 07:34] LABS: ALBUMIN 3.3 g/dl (3.4-5.0); BILIRUBIN,TOTAL 1.2 mg/dL (0.2-1); BLOOD UREA NITROGEN 5.5 mg/dL (7-18); CALCIUM 9.3 mg/dL (8.5-10.1); CREATININE 0.7 mg/dL (0.55-1.3); MAGNESIUM 1.7 mg/dL (1.8-2.4); PHOSPHOROUS 3.6 mg/dL (2.5-4.9); POTASSIUM 3.4 mmol/L (3.5-5.1); TOT PROT 6.7 g/dl (6.4-8.2)
[2020-03-30] MEDS ORDERED: POTASSIUM CHLORIDE TABS 20 MEQ TABLET.ER (FP) PO ONE (07:43)
[2020-03-30] MEDS ORDERED: MAGNESIUM SULF 50% (8.12 MEQ/2 ML-1 GM VIAL) IVPB ONE (07:43)
[2020-03-30] MEDS ORDERED: MAGNESIUM SULFATE IN WATER 2 GM/50 ML IVPB IVPB ONE (08:00)
--- NOTE | 2020-03-30 09:20 | PN ---
Progress Note, Physician Chief Complaint: Intermittent abdominal cramps and persistent diarrhea History of Present Illness: Patient was seen and examined. Awake and alert. Chart was reviewed Denies chest pain, SOB or palpitations - Current Medication List Current Medications: Active Medications Apixaban (Eliquis -) 5 mg PO BID [facility] Last Admin: 03/29/20 22:37 Dose: 5 mg Documented by: Folic Acid (Folic Acid -) 1 mg PO DAILY [facility] Last Admin: 03/29/20 18:26 Dose: 1 mg Documented by: Melatonin (Melatonin) 10 mg PO HS [facility] Last Admin: 03/29/20 22:37 Dose: 10 mg Documented by: Metoprolol Succinate (Toprol Xl -) 25 mg PO DAILY [facility] Last Admin: 03/29/20 15:14 Dose: 25 mg Documented by: Multivitamins/Minerals/Vitamin C (Tab-A-Vit -) 1 tab PO DAILY [facility] Last Admin: 03/29/20 18:26 Dose: 1 tab Documented by: Sacubitril/Valsartan (Entresto 24 Mg-26 Mg Tablet) 1 tab PO BID [facility] Last Admin: 03/29/20 23:11 Dose: 1 tab Documented by: Spironolactone (Aldactone -) 25 mg PO DAILY [facility] Thiamine HCl (Vitamin B1 -) 100 mg PO DAILY [facility] Last Admin: 03/29/20 18:27 Dose: 100 mg Documented by: Vancomycin HCl (Vancomycin Oral Solution) 125 mg PO Q6HPO [facility] Last Admin: 03/30/20 07:13 Dose: 125 mg Documented by: - Objective Vital Signs: Vital Signs Temperature 98.7 F 03/29/20 23:00 Pulse Rate 68 03/30/20 06:00 Respiratory Rate 18 03/30/20 06:00 Blood Pressure 118/79 03/30/20 06:00 O2 Sat by Pulse Oximetry (%) 100 03/30/20 06:00 Neck: Yes: Supple Cardiovascular: Yes: Regular Rate and Rhythm, S1, S2 Respiratory: Yes: CTA Bilaterally Gastrointestinal: Yes: Normal Bowel Sounds, Tenderness (to palpation diffuse) Edema: No Additional Findings/Remarks: - Review of Systems Constitutional: denies: Chills, Fever Cardiovascular: denies: Chest Pain, Palpitations, Shortness of Breath Respiratory: denies: Cough, Hemoptysis, Orthopnea, PND, SOB, SOB on Exertion Gastrointestinal: reports: Abdominal Pain, Diarrhea. denies: Constipation, Melena, Nausea, Rectal Bleeding, Vomiting Genitourinary: denies: Dysuria, Hematuria Neurological: denies: Dizziness, Headache, Seizure, Syncope Labs: CBC, BMP 03/30/20 06:00 03/30/20 06:00 INR, PTT INR 1.41 (0.83-1.09) H 03/28/20 20:50 Problem List - Problems (1) Systolic dysfunction with acute on chronic heart failure Code(s): I50.23 - ACUTE ON CHRONIC SYSTOLIC (CONGESTIVE) HEART FAILURE (2) Presence of implantable cardioverter-defibrillator (ICD) Code(s): Z95.810 - PRESENCE OF AUTOMATIC (IMPLANTABLE) CARDIAC DEFIBRILLATOR (3) Ventricular tachycardia Code(s): I47.2 - VENTRICULAR TACHYCARDIA (4) Diarrhea of presumed infectious origin Code(s): R19.7 - DIARRHEA, UNSPECIFIED (5) Cardiomyopathy Code(s): I42.9 - CARDIOMYOPATHY, UNSPECIFIED (6) ETOH abuse Code(s): F10.10 - ALCOHOL ABUSE, UNCOMPLICATED (7) HTN (hypertension) Code(s): I10 - ESSENTIAL (PRIMARY) HYPERTENSION (8) Hyponatremia Code(s): E87.1 - HYPO-OSMOLALITY AND HYPONATREMIA Assessment/Plan 1. Diarrhea and abdominal pain - C. Diff colitis 2. Dilated cardiomyopathy with severe LV systolic dysfunction 3. Post ICD after episode of VT/Torsades 4. Substance abuse with ETOH 5. PAF currently in sinus rhythm PLAN: 1. Antibiotic coverage per ID 2. Continue Metoprolol Succinate 25 mg QD and Entresto 24/26 mg BID as tolerated 3. Continue Spironolactone 25 mg QD and monitor renal function and electrolytes (NA and K) 4. Continue Eliquis 5 mg BID 5. Further cardiac follow up at [facility] upon discharge once stable GI tee. Further plans are to follow Ashwin Larson MD, [facility]
[2020-03-30] MEDS: MULTIVITAMINS (DAILY MVI) TABLET (FP) PO SCH (10:12)
[2020-03-30] MEDS: SACUBITRIL/VALSARTAN 24 MG-26 MG TABLET PO SCH ×2 (10:12→22:22)
[2020-03-30] MEDS: metoPROLOL SUCCINATE 25 MG TAB.SR.24H (FP) PO SCH (10:12)
[2020-03-30] MEDS: APIXABAN 5 MG TABLET PO SCH ×2 (10:12→21:38)
[2020-03-30] MEDS: SPIRONOLACTONE 25 MG TABLET PO SCH (10:12)
[2020-03-30] MEDS: FOLIC ACID 1 MG TABLET (FP) PO SCH (10:12)
[2020-03-30] MEDS: THIAMINE HCL 100 MG TABLET (FP) PO SCH (10:13)
--- NOTE | 2020-03-30 10:36 | PN ---
Progress Note, Physician History of Present Illness: AWAKE, ALERT STILL WITH ABDOMINAL PAIN, LOOSE STOOL C DIFF+ AFEBRILE WBC WNL - Current Medication List Current Medications: Active Medications Apixaban (Eliquis -) 5 mg PO BID [facility] Last Admin: 03/30/20 10:12 Dose: 5 mg Documented by: Folic Acid (Folic Acid -) 1 mg PO DAILY [facility] Last Admin: 03/30/20 10:12 Dose: 1 mg Documented by: Melatonin (Melatonin) 10 mg PO HS [facility] Last Admin: 03/29/20 22:37 Dose: 10 mg Documented by: Metoprolol Succinate (Toprol Xl -) 25 mg PO DAILY [facility] Last Admin: 03/30/20 10:12 Dose: 25 mg Documented by: Multivitamins/Minerals/Vitamin C (Tab-A-Vit -) 1 tab PO DAILY [facility] Last Admin: 03/30/20 10:12 Dose: 1 tab Documented by: Sacubitril/Valsartan (Entresto 24 Mg-26 Mg Tablet) 1 tab PO BID [facility] Last Admin: 03/30/20 10:12 Dose: 1 tab Documented by: Spironolactone (Aldactone -) 25 mg PO DAILY [facility] Last Admin: 03/30/20 10:12 Dose: 25 mg Documented by: Thiamine HCl (Vitamin B1 -) 100 mg PO DAILY [facility] Last Admin: 03/30/20 10:13 Dose: 100 mg Documented by: Vancomycin HCl (Vancomycin Oral Solution) 125 mg PO Q6HPO [facility] Last Admin: 03/30/20 07:13 Dose: 125 mg Documented by: - Objective Vital Signs: Vital Signs Temperature 98.7 F 03/29/20 23:00 Pulse Rate 68 03/30/20 06:00 Respiratory Rate 18 03/30/20 06:00 Blood Pressure 118/79 03/30/20 06:00 O2 Sat by Pulse Oximetry (%) 100 03/30/20 06:00 Constitutional: Yes: No Distress Cardiovascular: Yes: Regular Rate and Rhythm, S1, S2 Respiratory: Yes: CTA Bilaterally Gastrointestinal: Yes: Normal Bowel Sounds, Soft, Tenderness (+ B/L LOWER QUADRANT ABDOMINAL TENDERNESS) Edema: No Labs: CBC, BMP 03/30/20 06:00 03/30/20 06:00 INR, PTT INR 1.41 (0.83-1.09) H 03/28/20 20:50 Assessment/Plan C DIFFICILE COLITIS LEUKOCYTOSIS RESOLVED IV ANTIBIOTICS D/C'D CONTINUE VANCOMYCIN 125MG PO Q6H COMPLETE 10D COURSE
[2020-03-30] MEDS ORDERED: INSULIN (NOVOLOG) ASPART 100 UNITS/ML 10ML VIAL ONE ×2 (12:27→17:32)
--- NOTE | 2020-03-30 14:29 | PN ---
Teaching Attending Note Name of Resident: Rita Rodgers ATTENDING PHYSICIAN STATEMENT I saw and evaluated the patient. I reviewed the resident's note and discussed the case with the resident. I agree with the resident's findings and plan as documented. SUBJECTIVE: Ongoing abdominal discomfort and watery diarrhea - no fever/chills. Nausea/vomiting resolved. OBJECTIVE: Afebrile, Hemodynamically stable Last Vital Signs Temp Pulse Resp BP Pulse Ox 98.7 F 73 20 116/81 100 03/29/20 23:00 03/30/20 12:00 03/30/20 12:00 03/30/20 12:00 03/30/20 12:00 Heart - S1, S2, RRR. AICD incision site mild tenderness, clean Lungs - clear to auscultation Abdomen - soft, mild generalized tenderness. Bowel Sounds normal. Extremities - no edema, no calf tenderness. Neuro - AAO x 3. Tone/Power normal all extremities. Anxious+ Laboratory Results - last 24 hr 03/29/20 03/29/20 03/30/20 06:40 22:35 06:00 WBC 9.3 RBC 3.63 L Hgb 12.5 Hct 36.0 MCV 99.3 H MCH 34.5 H MCHC 34.8 RDW 17.4 H Plt Count 229 MPV 8.1 Absolute Neuts (auto) 6.7 Neutrophils % 72.0 Lymphocytes % 13.8 Monocytes % 11.6 H Eosinophils % 1.8 Basophils % 0.8 Nucleated RBC % 0 Sodium Potassium Chloride Carbon Dioxide Anion Gap BUN Creatinine Est GFR (CKD-EPI)AfAm Est GFR (CKD-EPI)NonAf POC Glucometer 103 Random Glucose Calcium Phosphorus Magnesium Total Bilirubin AST ALT Alkaline Phosphatase Total Protein Albumin COVID-19 (GAURAV) Not detected 03/30/20 06:00 WBC RBC Hgb Hct MCV MCH MCHC RDW Plt Count MPV Absolute Neuts (auto) Neutrophils % Lymphocytes % Monocytes % Eosinophils % Basophils % Nucleated RBC % Sodium 136 Potassium 3.4 L Chloride 102 Carbon Dioxide 22 Anion Gap 12 BUN 5.5 L Creatinine 0.7 Est GFR (CKD-EPI)AfAm 138.75 Est GFR (CKD-EPI)NonAf 119.71 POC Glucometer Random Glucose 98 Calcium 9.3 Phosphorus 3.6 Magnesium 1.7 L Total Bilirubin 1.2 H AST 40 H ALT 30 Alkaline Phosphatase 138 H Total Protein 6.7 Albumin 3.3 L COVID-19 (GAURAV) Current Medications Generic Name Dose Route Start Last Admin Trade Name Jose PRN Reason Stop Dose Admin Apixaban 5 mg 03/29/20 12:45 03/30/20 10:12 Eliquis - PO 5 mg BID JIMMY Administration Folic Acid 1 mg 03/29/20 15:30 03/30/20 10:12 Folic Acid - PO 1 mg DAILY JIMYM Administration Melatonin 10 mg 03/29/20 22:00 03/29/20 22:37 Melatonin PO 10 mg HS JIMMY Administration Metoprolol Succinate 25 mg 03/29/20 12:30 03/30/20 10:12 Toprol Xl - PO 25 mg DAILY JIMMY Administration Multivitamins/Minerals/Vitamin C 1 tab 03/29/20 15:30 03/30/20 10:12 Tab-A-Vit - PO 1 tab DAILY JIMMY Administration Sacubitril/Valsartan 1 tab 03/29/20 12:30 03/30/20 10:12 Entresto 24 Mg-26 Mg Tablet PO 1 tab BID JIMMY Administration Spironolactone 25 mg 03/30/20 10:00 03/30/20 10:12 Aldactone - PO 25 mg DAILY JIMMY Administration Thiamine HCl 100 mg 03/29/20 15:30 03/30/20 10:13 Vitamin B1 - PO 100 mg DAILY JIMMY Administration Vancomycin HCl 125 mg 03/29/20 12:00 03/30/20 12:32 Vancomycin Oral Solution PO 125 mg Q6HPO JIMMY Administration Home Medications Medication Instructions Recorded Apixaban [Eliquis] 5 mg PO BID 03/29/20 Folic Acid 1 mg PO DAILY 03/29/20 Magnesium Oxide [Mag-Oxide] 200 mg PO BID 03/29/20 Metoprolol Succinate [Toprol Xl] 25 mg PO DAILY 03/29/20 Multivitamin [Poly-Vitamin] 1 tab PO DAILY 03/29/20 Sacubitril/Valsartan [Entresto 24 1 tab PO BID 03/29/20 mg-26 mg Tablet] Spironolactone 25 mg PO DAILY 03/29/20 Thiamine Mononitrate (Vit B1) 3 tab PO DAILY 03/29/20 [Cyto B-1] Torsemide [Demadex -] 20 mg PO DAILY 03/29/20 ASSESSMENT AND PLAN: 39 year old male with history of prior substance abuse (Alcohol, cocaine, heroin), Anxiety, Chronic Systolic CHF (EF 10-15%) s/p AICD, Atrial Fibrillation on Eliquis, who presented to the ED with abdominal pain, and profuse watery diarrhea after recent prophylactic Abx after AICD placement. CT A/P - no acute intra-abdominal pathology, retroperitoneal edema, diffuse fatty infiltrate. 1. Diarrhea secondary to Cdiff infection Stool positive for Cdiff Leukocytosis improving, Afebrile. Oral hydration ongoing Continue PO Vancomycin 2. Chronic Systolic CHF/Cardiomyopathy s/p AICD (s/p episode of VT/Torsades psot-op) Evaluated by Cardiology - resumed on BB, Entresto, Spironolactone. Torsemide held. Follow up at [facility] on discharge as per Cardio. 3. Paroxysmal Atrial fibrillation - currently in SR. Continue BB and Eliquis. 4. Hx Substance abuse - reports remote history of alcohol, cocaine, heroin. Mild tremor, no overt withdrawal symptoms, will monitor. Will continue MVI, Thiamine, Folic Acid. 5. Anxiety - will confirm and resume home meds. 6. Hypokalemia/Hypomagnesemia - repleted. DVT Px - on Eliquis.
--- NOTE | 2020-03-30 14:34 | PN ---
Physical Exam: SUBJECTIVE: Patient seen and examined. States he is still having multiple bouts of watery to soft diarrhea. Admits to LQ abdominal pain bilaterally that. Pt states he is anxious. OBJECTIVE: Vital Signs Period Temp Pulse Resp BP Sys/Andrea Pulse Ox Last 24 Hr 97.0 F-98.7 F 62-90 18-20 110-133/62-93 98-100 GENERAL: The patient is awake, alert, and fully oriented, in no acute distress. Anxious HEAD: Normal with no signs of trauma. EYES: PERRL, extraocular movements intact, sclera anicteric, conjunctiva clear. No ptosis. ENT: Ears normal, nares patent, oropharynx clear without exudates, moist mucous membranes. NECK: Trachea midline, full range of motion, supple. LUNGS: Breath sounds equal, clear to auscultation bilaterally, no wheezes, no crackles, no accessory muscle use. HEART: Regular rate and rhythm, S1, S2 without murmur, rub or gallop. AICD incision site ABDOMEN: Moderate tenderness to palpation in lower quadrants. Soft, nondistended, normoactive bowel sounds, no guarding, no rebound, no hepatosplenomegaly, no masses. EXTREMITIES: 2+ pulses, warm, well-perfused, no edema. NEUROLOGICAL: Cranial nerves II through XII grossly intact. Normal speech, gait not observed. Anxious PSYCH: Normal mood, normal affect. SKIN: Warm, dry, normal turgor, no rashes or lesions noted Laboratory Results - last 24 hr 03/29/20 03/29/20 03/30/20 06:40 22:35 06:00 WBC 9.3 RBC 3.63 L Hgb 12.5 Hct 36.0 MCV 99.3 H MCH 34.5 H MCHC 34.8 RDW 17.4 H Plt Count 229 MPV 8.1 Absolute Neuts (auto) 6.7 Neutrophils % 72.0 Lymphocytes % 13.8 Monocytes % 11.6 H Eosinophils % 1.8 Basophils % 0.8 Nucleated RBC % 0 Sodium Potassium Chloride Carbon Dioxide Anion Gap BUN Creatinine Est GFR (CKD-EPI)AfAm Est GFR (CKD-EPI)NonAf POC Glucometer 103 Random Glucose Calcium Phosphorus Magnesium Total Bilirubin AST ALT Alkaline Phosphatase Total Protein Albumin COVID-19 ([facility]UR[facility]) Not detected 03/30/20 06:00 WBC RBC Hgb Hct MCV MCH MCHC RDW Plt Count MPV Absolute Neuts (auto) Neutrophils % Lymphocytes % Monocytes % Eosinophils % Basophils % Nucleated RBC % Sodium 136 Potassium 3.4 L Chloride 102 Carbon Dioxide 22 Anion Gap 12 BUN 5.5 L Creatinine 0.7 Est GFR (CKD-EPI)AfAm 138.75 Est GFR (CKD-EPI)NonAf 119.71 POC Glucometer Random Glucose 98 Calcium 9.3 Phosphorus 3.6 Magnesium 1.7 L Total Bilirubin 1.2 H AST 40 H ALT 30 Alkaline Phosphatase 138 H Total Protein 6.7 Albumin 3.3 L COVID-19 ([facility]UR[facility]) Active Medications Generic Name Dose Route Start Last Admin Trade Name Freq PRN Reason Stop Dose Admin Apixaban 5 mg 03/29/20 12:45 03/30/20 10:12 Eliquis - PO 5 mg BID JIMMY Administration Folic Acid 1 mg 03/29/20 15:30 03/30/20 10:12 Folic Acid - PO 1 mg DAILY JIMMY Administration Melatonin 10 mg 03/29/20 22:00 03/29/20 22:37 Melatonin PO 10 mg HS JIMMY Administration Metoprolol Succinate 25 mg 03/29/20 12:30 03/30/20 10:12 Toprol Xl - PO 25 mg DAILY [facility]IM[facility] Administration Multivitamins/Minerals/Vitamin C 1 tab 03/29/20 15:30 03/30/20 10:12 Tab-A-Vit - PO 1 tab DAILY JIMMY Administration Sacubitril/Valsartan 1 tab 03/29/20 12:30 03/30/20 10:12 Entresto 24 Mg-26 Mg Tablet PO 1 tab BID JIMMY Administration Spironolactone 25 mg 03/30/20 10:00 03/30/20 10:12 Aldactone - PO 25 mg DAILY JIMMY Administration Thiamine HCl 100 mg 03/29/20 15:30 03/30/20 10:13 Vitamin B1 - PO 100 mg DAILY JIMMY Administration Vancomycin HCl 125 mg 03/29/20 12:00 03/30/20 12:32 Vancomycin Oral Solution PO 125 mg Q6HPO JIMMY Administration ASSESSMENT/PLAN: Pt is a 39 year old male with PMHx of HFrEF s/p AICD palcement, A fib, history of substance abuse presenting with multiple bouts of diarrhea daily after being on ppx Keflex for AICD placement. Cultures positive for C diff being treated with PO vancomycin. #Diarrhea 2/2 to C diff -Recent Keflex use - prophylaxis for AICD placement -Still endorses multiple watery to soft bowel movements -WBC 9.3, down from 11.3 on admission -Cultures positive for C diff -Was given Rocephin and flagyl -Only on PO vancomycin currently -Abdominal pain; given Tramodol 50mg once #Chronic HFrEF s/p AICD placement -Recent AICD placement for HFrEF and EF 10-15% -Seen by Cardio (Dr. Og); resume metoprolol succinate 25mgQD, entresto 24/26 mg BID, spironolactone 25mg QD #Atrial fibrillation -Per cardio, resume Eliquis 5mg BID and metoprolol succinate 25mgQD #Hypokalemia #Hypomagnesemia -Repleted, monitor BMP in AM #Hx of substance abuse -Daily drinking history prior to surgery 5 weeks ago, remote cocaine and heroin use per patient; continue to monitor for withdrawal sx -Mild tremor noted -Thiamine and folate and multivitamins for alcohol FEN: -Sodium controlled diet -Repleted potassium, check BMP in AM -Avoid fluids Prophylaxis: On eliquis Dispo: Admitted to tele. C diff positive, being treated currently with PO vancomycin. Hx of recent AICD placement and CHF, afib being followed by cardio, continued home meds. Visit type - Emergency Visit Emergency Visit: Yes ED Registration Date: 03/29/20 Care time: The patient presented to the Emergency Department on the above date and was hospitalized for further evaluation of their emergent condition. - New Patient This patient is new to me today: No - Critical Care Critical Care patient: No ATTENDING PHYSICIAN STATEMENT I saw and evaluated the patient. I reviewed the resident's note and discussed the case with the resident. I agree with the resident's findings and plan as documented. SUBJECTIVE: OBJECTIVE: ASSESSMENT AND PLAN:
[2020-03-30 18:00] LABS: COCAINE, UR NEGATIVE ng/ml (CUTOFF=300); METHADONE, UR NEGATIVE ng/ml (CUTOFF=300); OPIATES, URI NEGATIVE ng/ml (CUTOFF=300); PHENCYCLIDINE,URINE NEGATIVE ng/ml (CUTOFF=25); URINE AMPHETAMINES NEGATIVE ng/ml (CUTOFF=500)
[2020-03-30 18:07] LABS: URINE BARBITURATES POSITIVE ng/ml (CUTOFF=200); URINE BENZODIAZEPINES POSITIVE ng/ml (CUTOFF=200)
[2020-03-30] MEDS: MELATONIN 5 MG TABLETS PO SCH (23:57)
[2020-03-31] MEDS: VANCOMYCIN 250 MG/5 ML ORAL SOLUTION PO SCH ×3 (06:27→17:35)
[2020-03-31 06:49] LABS: EOS % 2.3 % (0-4.5); HEMOGLOBIN 11.9 GM/dL (11.7-16.9); LYMPH % 14.2 % (8-40); MCHC 34.1 g/dl (32.0-35.9); MEAN CELL VOLUME 99.7 fl (80-96); MEAN PLT VOLUME 7.9 fl (7.5-11.1); MONO % 11.8 % (3.8-10.2); NEUT % 70.7 % (42.8-82.8); PLATELET COUNT 216 K/MM3 (134-434); RBC 3.51 M/mm3 (4.00-5.60); RDW 17.3 % (11.9-15.9); WHITE BLOOD COUNT 8.9 K/mm3 (4.0-10.0)
[2020-03-31 07:15] LABS: ALBUMIN 3.2 g/dl (3.4-5.0); BLOOD UREA NITROGEN 6.2 mg/dL (7-18); CREATININE 0.6 mg/dL (0.55-1.3); MAGNESIUM 1.9 mg/dL (1.8-2.4); PHOSPHOROUS 4.1 mg/dL (2.5-4.9); POTASSIUM 3.4 mmol/L (3.5-5.1); TOT PROT 6.3 g/dl (6.4-8.2)
[2020-03-31] MEDS ORDERED: MAGNESIUM 1GM/D5W 100ML - 100 ML IVPB IVPB ONE (07:45)
[2020-03-31] MEDS: SPIRONOLACTONE 25 MG TABLET PO SCH (09:52)
[2020-03-31] MEDS: FOLIC ACID 1 MG TABLET (FP) PO SCH (09:52)
[2020-03-31] MEDS: metoPROLOL SUCCINATE 25 MG TAB.SR.24H (FP) PO SCH (09:52)
[2020-03-31] MEDS: POTASSIUM CHLORIDE TABS 20 MEQ TABLET.ER (FP) PO SCH ×2 (09:52→13:47)
[2020-03-31] MEDS: SACUBITRIL/VALSARTAN 24 MG-26 MG TABLET PO SCH (09:52)
[2020-03-31] MEDS: APIXABAN 5 MG TABLET PO SCH (09:53)
[2020-03-31] MEDS: THIAMINE HCL 100 MG TABLET (FP) PO SCH (09:53)
[2020-03-31] MEDS: MULTIVITAMINS (DAILY MVI) TABLET (FP) PO SCH (09:56)
[2020-03-31] MEDS ORDERED: traMADol HCL 50 MG TABLET PO PRN (12:07)
[2020-03-31] MEDS ORDERED: PT OWN MED DRAWER 7, Y5N ONE ×2 (12:33→14:50)
--- NOTE | 2020-03-31 13:25 | PN ---
Progress Note, Physician Chief Complaint: Intermittent abdominal cramps and persistent diarrhea improving History of Present Illness: Patient was seen and examined. Awake and alert. Chart was reviewed Denies chest pain, SOB or palpitations - Current Medication List Current Medications: Active Medications Apixaban (Eliquis -) 5 mg PO BID [facility] Last Admin: 03/31/20 09:53 Dose: 5 mg Documented by: Folic Acid (Folic Acid -) 1 mg PO DAILY [facility] Last Admin: 03/31/20 09:52 Dose: 1 mg Documented by: Melatonin (Melatonin) 10 mg PO HS [facility] Last Admin: 03/30/20 23:57 Dose: 10 mg Documented by: Metoprolol Succinate (Toprol Xl -) 25 mg PO DAILY [facility] Last Admin: 03/31/20 09:52 Dose: 25 mg Documented by: Multivitamins/Minerals/Vitamin C (Tab-A-Vit -) 1 tab PO DAILY [facility] Last Admin: 03/31/20 09:56 Dose: 1 tab Documented by: Potassium Chloride (K-Dur -) 40 meq PO Q6H [facility] Stop: 03/31/20 13:46 Last Admin: 03/31/20 09:52 Dose: 40 meq Documented by: Sacubitril/Valsartan (Entresto 24 Mg-26 Mg Tablet) 1 tab PO BID [facility] Last Admin: 03/31/20 09:52 Dose: 1 tab Documented by: Spironolactone (Aldactone -) 25 mg PO DAILY [facility] Last Admin: 03/31/20 09:52 Dose: 25 mg Documented by: Thiamine HCl (Vitamin B1 -) 100 mg PO DAILY [facility] Last Admin: 03/31/20 09:53 Dose: 100 mg Documented by: Tramadol HCl (Ultram -) 50 mg PO Q8H PRN PRN Reason: PAIN LEVEL 7 - 10 Vancomycin HCl (Vancomycin Oral Solution) 125 mg PO Q6HPO [facility] Last Admin: 03/31/20 06:27 Dose: 125 mg Documented by: - Objective Vital Signs: Vital Signs Temperature 97.6 F 03/31/20 05:00 Pulse Rate 60 03/31/20 05:00 Respiratory Rate 16 03/31/20 09:00 Blood Pressure 113/70 03/31/20 05:00 O2 Sat by Pulse Oximetry (%) 98 03/31/20 09:00 Neck: Yes: Supple Cardiovascular: Yes: Regular Rate and Rhythm, S1, S2 Respiratory: Yes: CTA Bilaterally Gastrointestinal: Yes: Normal Bowel Sounds Edema: No Additional Findings/Remarks: - Review of Systems Constitutional: denies: Chills, Fever Cardiovascular: denies: Chest Pain, Palpitations, Shortness of Breath Respiratory: denies: Cough, Hemoptysis, Orthopnea, PND, SOB, SOB on Exertion Gastrointestinal: reports: Abdominal Pain, Diarrhea. denies: Constipation, Melena, Nausea, Rectal Bleeding, Vomiting Genitourinary: denies: Dysuria, Hematuria Neurological: denies: Dizziness, Headache, Seizure, Syncope Labs: CBC, BMP 03/31/20 05:40 03/31/20 05:40 INR, PTT INR 1.41 (0.83-1.09) H 03/28/20 20:50 Problem List - Problems (1) Systolic dysfunction with acute on chronic heart failure Code(s): I50.23 - ACUTE ON CHRONIC SYSTOLIC (CONGESTIVE) HEART FAILURE (2) Presence of implantable cardioverter-defibrillator (ICD) Code(s): Z95.810 - PRESENCE OF AUTOMATIC (IMPLANTABLE) CARDIAC DEFIBRILLATOR (3) Ventricular tachycardia Code(s): I47.2 - VENTRICULAR TACHYCARDIA (4) Diarrhea of presumed infectious origin Code(s): R19.7 - DIARRHEA, UNSPECIFIED (5) Cardiomyopathy Code(s): I42.9 - CARDIOMYOPATHY, UNSPECIFIED (6) ETOH abuse Code(s): F10.10 - ALCOHOL ABUSE, UNCOMPLICATED (7) HTN (hypertension) Code(s): I10 - ESSENTIAL (PRIMARY) HYPERTENSION (8) Hyponatremia Code(s): E87.1 - HYPO-OSMOLALITY AND HYPONATREMIA Assessment/Plan 1. Diarrhea and abdominal pain - C. Diff colitis 2. Dilated cardiomyopathy with severe LV systolic dysfunction 3. Post ICD after episode of VT/Torsades 4. Substance abuse with ETOH 5. PAF currently in sinus rhythm PLAN: 1. Antibiotic coverage per ID 2. Continue Metoprolol Succinate 25 mg QD and Entresto 24/26 mg BID as tolerated 3. Continue Spironolactone 25 mg QD and monitor renal function and electrolytes (NA and K) 4. Continue Eliquis 5 mg BID 5. Further cardiac follow up at [facility] upon discharge once stable GI tee. Further plans are to follow Ashwin Larson MD, FACC
--- NOTE | 2020-03-31 17:05 | DS ---
Physical Exam: SUBJECTIVE: Patient seen and examined at bedside, reports 1 solid bowel movement. he wishes to go home OBJECTIVE: Vital Signs Period Temp Pulse Resp BP Sys/Andrea Pulse Ox Last 24 Hr 97.6 F-99.2 F 60-87 16-18 113-123/70-82 98-98 PHYSICAL EXAM GENERAL: The patient is awake, alert, and fully oriented, in no acute distress. Anxious HEAD: Normal with no signs of trauma. EYES: PERRL, extraocular movements intact, sclera anicteric, conjunctiva clear. No ptosis. ENT: Ears normal, nares patent, oropharynx clear without exudates, moist mucous membranes. NECK: Trachea midline, full range of motion, supple. LUNGS: Breath sounds equal, clear to auscultation bilaterally, no wheezes, no crackles, no accessory muscle use. HEART: Regular rate and rhythm, S1, S2 without murmur, rub or gallop. AICD incision site ABDOMEN: Moderate tenderness to palpation in lower quadrants. Soft, nondistended, normoactive bowel sounds, no guarding, no rebound, no hepatosplenomegaly, no masses. EXTREMITIES: 2+ pulses, warm, well-perfused, no edema. NEUROLOGICAL: Cranial nerves II through XII grossly intact. Normal speech, gait not observed. Anxious PSYCH: Normal mood, normal affect. SKIN: Warm, dry, normal turgor, no rashes or lesions noted LABS Laboratory Results - last 24 hr 03/29/20 03/30/20 03/31/20 06:25 16:25 05:40 WBC 8.9 RBC 3.51 L Hgb 11.9 Hct 35.0 L MCV 99.7 H MCH 34.0 H MCHC 34.1 RDW 17.3 H Plt Count 216 MPV 7.9 Absolute Neuts (auto) 6.3 Neutrophils % 70.7 Lymphocytes % 14.2 Monocytes % 11.8 H Eosinophils % 2.3 Basophils % 1.0 Nucleated RBC % 0 Sodium Potassium Chloride Carbon Dioxide Anion Gap BUN Creatinine Est GFR (CKD-EPI)AfAm Est GFR (CKD-EPI)NonAf Random Glucose Calcium Phosphorus Magnesium Total Bilirubin AST ALT Alkaline Phosphatase Total Protein Albumin Opiates Screen Negative Methadone Screen Negative Barbiturate Screen Positive A* Phencyclidine Screen Negative Ur Amphetamines Screen Negative MDMA (Ecstasy) Screen Negative Benzodiazepines Screen Positive A* Cocaine Screen Negative U Marijuana (THC) Screen Negative HIV 1&2 Ag/Ab, 4th Gen Non reactive 03/31/20 05:40 WBC RBC Hgb Hct MCV MCH MCHC RDW Plt Count MPV Absolute Neuts (auto) Neutrophils % Lymphocytes % Monocytes % Eosinophils % Basophils % Nucleated RBC % Sodium 136 Potassium 3.4 L Chloride 103 Carbon Dioxide 22 Anion Gap 11 BUN 6.2 L Creatinine 0.6 Est GFR (CKD-EPI)AfAm 147.82 Est GFR (CKD-EPI)NonAf 127.55 Random Glucose 96 Calcium 9.0 Phosphorus 4.1 Magnesium 1.9 Total Bilirubin 1.0 AST 38 H ALT 29 Alkaline Phosphatase 138 H Total Protein 6.3 L Albumin 3.2 L Opiates Screen Methadone Screen Barbiturate Screen Phencyclidine Screen Ur Amphetamines Screen MDMA (Ecstasy) Screen Benzodiazepines Screen Cocaine Screen U Marijuana (THC) Screen HIV 1&2 Ag/Ab, 4th Gen HOSPITAL COURSE: Date of Admission:03/29/20 39 year old male with history of prior substance abuse (Alcohol, cocaine, heroin), Anxiety, Chronic Systolic CHF (EF 10-15%) s/p AICD, Atrial Fibrillation on Eliquis, who presented to the ED with abdominal pain, and profuse watery diarrhea after recent prophylactic Abx after AICD placement. CT A/P revealed no acute intra-abdominal pathology, retroperitoneal edema, diffuse fatty infiltrate. Stool culture was positive for C.diff. Discharged with vancomycin oral solution 125 mg every 6 hours for 7 more days. Patient was advised to and should follow up at [facility] and with Dr. Larson ,bed maker, regarding ICD and cardiac medications within 1 week. Patient was also advised to and should follow up with [facility] for general medical evaluation within 1 week. Patient is clinically stable for discharge. Date of Discharge: 03/31/20 Minutes to complete discharge: 36 Discharge Summary Problems reviewed: Yes Reason For Visit: DIARRHEA OF PRESUMED INFECTIOUS ORIGIN Current Active Problems Diarrhea of presumed infectious origin (Acute) Presence of implantable cardioverter-defibrillator (ICD) (Chronic) Systolic dysfunction with acute on chronic heart failure (Chronic) Condition: Improved - Instructions Diet, Activity, Other Instructions: You came to the hospital for Abdominal pain and watery Diarrhea. Your stool culture was positive for C.Diff. You were treated with antibiotics for 3 days. Please take Vancomycin oral solution 125 mg every 6 hours for 7 more days Please continue your home medications as prescribed. Please follow up with your PCP for general medical evaluation within 1 week. A referral is attached for the [facility] Please follow up with Dr. Larson , your bed maker, regarding your ICD and cardiac medications within 1 week. If you have new, worsening, or concerning symptoms please return to the ED or call 911. Referrals: [facility] [place] [Provider Group] Ray Velez MD [Staff Physician] - 1 Week Ashwin Larson MD [Staff Physician] - 1 Week Disposition: HOME - Home Medications Comprehensive Discharge Medication List: Ambulatory Orders Apixaban [Eliquis] 5 mg PO BID 03/29/20 Folic Acid 1 mg PO DAILY 03/29/20 Magnesium Oxide [Mag-Oxide] 200 mg PO BID 03/29/20 Metoprolol Succinate [Toprol Xl] 25 mg PO DAILY 03/29/20 Multivitamin [Poly-Vitamin] 1 tab PO DAILY 03/29/20 Sacubitril/Valsartan [Entresto 24 mg-26 mg Tablet] 1 tab PO BID 03/29/20 Spironolactone 25 mg PO DAILY 03/29/20 Thiamine Mononitrate (Vit B1) [Cyto B-1] 3 tab PO DAILY 03/29/20 Torsemide [Demadex -] 20 mg PO DAILY 03/29/20 Vancomycin Oral Solution 125 mg PO QID #28 capsule 03/31/20 This patient is new to me today: Yes Date on this admission: 04/03/20 Emergency Visit: Yes ED Registration Date: 03/29/20 Care time: The patient presented to the Emergency Department on the above date and was hospitalized for further evaluation of their emergent condition. Critical Care patient: No - Discharge Referral Referred to [facility] No ATTENDING PHYSICIAN STATEMENT I saw and evaluated the patient. I reviewed the resident's note and discussed the case with the resident. I agree with the resident's findings and plan as documented. SUBJECTIVE: OBJECTIVE: ASSESSMENT AND PLAN:
--- NOTE | 2020-03-31 17:28 | PN ---
Teaching Attending Note Name of Resident: Mehran Barnhart ATTENDING PHYSICIAN STATEMENT I saw and evaluated the patient. I reviewed the resident's note and discussed the case with the resident. I agree with the resident's findings and plan as documented. SUBJECTIVE: Abdominal discomfort and watery diarrhea subsiding. No fever/chills. Nausea/vomiting resolved. OBJECTIVE: Afebrile, Hemodynamically stable Last Vital Signs Temp Pulse Resp BP Pulse Ox 97.8 F 73 16 123/82 98 03/31/20 14:10 03/31/20 14:10 03/31/20 14:10 03/31/20 14:10 03/31/20 09:00 Heart - S1, S2, RRR. AICD incision site mild tenderness, clean Lungs - clear to auscultation Abdomen - soft, mild generalized tenderness. No guarding/rebound. Bowel Sounds normal. Extremities - no edema, no calf tenderness. Neuro - AAO x 3. Tone/Power normal all extremities. Laboratory Results - last 24 hr 03/29/20 03/30/20 03/31/20 06:25 16:25 05:40 WBC 8.9 RBC 3.51 L Hgb 11.9 Hct 35.0 L MCV 99.7 H MCH 34.0 H MCHC 34.1 RDW 17.3 H Plt Count 216 MPV 7.9 Absolute Neuts (auto) 6.3 Neutrophils % 70.7 Lymphocytes % 14.2 Monocytes % 11.8 H Eosinophils % 2.3 Basophils % 1.0 Nucleated RBC % 0 Sodium Potassium Chloride Carbon Dioxide Anion Gap BUN Creatinine Est GFR (CKD-EPI)AfAm Est GFR (CKD-EPI)NonAf Random Glucose Calcium Phosphorus Magnesium Total Bilirubin AST ALT Alkaline Phosphatase Total Protein Albumin Opiates Screen Negative Methadone Screen Negative Barbiturate Screen Positive A* Phencyclidine Screen Negative Ur Amphetamines Screen Negative MDMA (Ecstasy) Screen Negative Benzodiazepines Screen Positive A* Cocaine Screen Negative U Marijuana (THC) Screen Negative HIV 1&2 Ag/Ab, 4th Gen Non reactive 03/31/20 05:40 WBC RBC Hgb Hct MCV MCH MCHC RDW Plt Count MPV Absolute Neuts (auto) Neutrophils % Lymphocytes % Monocytes % Eosinophils % Basophils % Nucleated RBC % Sodium 136 Potassium 3.4 L Chloride 103 Carbon Dioxide 22 Anion Gap 11 BUN 6.2 L Creatinine 0.6 Est GFR (CKD-EPI)AfAm 147.82 Est GFR (CKD-EPI)NonAf 127.55 Random Glucose 96 Calcium 9.0 Phosphorus 4.1 Magnesium 1.9 Total Bilirubin 1.0 AST 38 H ALT 29 Alkaline Phosphatase 138 H Total Protein 6.3 L Albumin 3.2 L Opiates Screen Methadone Screen Barbiturate Screen Phencyclidine Screen Ur Amphetamines Screen MDMA (Ecstasy) Screen Benzodiazepines Screen Cocaine Screen U Marijuana (THC) Screen HIV 1&2 Ag/Ab, 4th Gen Current Medications Generic Name Dose Route Start Last Admin Trade Name Freq PRN Reason Stop Dose Admin Apixaban 5 mg 03/29/20 12:45 03/31/20 09:53 Eliquis - PO 5 mg BID JIMMY Administration Folic Acid 1 mg 03/29/20 15:30 03/31/20 09:52 Folic Acid - PO 1 mg DAILY JIMMY Administration Melatonin 10 mg 03/29/20 22:00 03/30/20 23:57 Melatonin PO 10 mg HS JIMMY Administration Metoprolol Succinate 25 mg 03/29/20 12:30 03/31/20 09:52 Toprol Xl - PO 25 mg DAILY JIMMY Administration Multivitamins/Minerals/Vitamin C 1 tab 03/29/20 15:30 03/31/20 09:56 Tab-A-Vit - PO 1 tab DAILY JIMMY Administration Sacubitril/Valsartan 1 tab 03/29/20 12:30 03/31/20 09:52 Entresto 24 Mg-26 Mg Tablet PO 1 tab BID JIMMY Administration Spironolactone 25 mg 03/30/20 10:00 03/31/20 09:52 Aldactone - PO 25 mg DAILY JIMMY Administration Thiamine HCl 100 mg 03/29/20 15:30 03/31/20 09:53 Vitamin B1 - PO 100 mg DAILY JIMMY Administration Tramadol HCl 50 mg 03/31/20 12:07 03/31/20 13:47 Ultram - PO 50 mg Q8H PRN Administration PAIN LEVEL 7 - 10 Vancomycin HCl 125 mg 03/29/20 12:00 03/31/20 14:53 Vancomycin Oral Solution PO Not Given Q6HPO JIMMY Discharge Medications Medication Instructions Recorded Apixaban [Eliquis] 5 mg PO BID 03/29/20 Folic Acid 1 mg PO DAILY 03/29/20 Magnesium Oxide [Mag-Oxide] 200 mg PO BID 03/29/20 Metoprolol Succinate [Toprol Xl] 25 mg PO DAILY 03/29/20 Multivitamin [Poly-Vitamin] 1 tab PO DAILY 03/29/20 Sacubitril/Valsartan [Entresto 24 1 tab PO BID 03/29/20 mg-26 mg Tablet] Spironolactone 25 mg PO DAILY 03/29/20 Thiamine Mononitrate (Vit B1) 3 tab PO DAILY 03/29/20 [Cyto B-1] Torsemide [Demadex -] 20 mg PO DAILY 03/29/20 Vancomycin Oral Solution 125 mg PO QID #28 capsule 03/31/20 ASSESSMENT AND PLAN: 39 year old male with history of prior substance abuse (Alcohol, cocaine, heroin), Anxiety, Chronic Systolic CHF (EF 10-15%) s/p AICD, Atrial Fibrillation on Eliquis, who presented to the ED with abdominal pain, and profuse watery diarrhea after recent prophylactic Abx after AICD placement. CT A/P - no acute intra-abdominal pathology, retroperitoneal edema, diffuse fatty infiltrate. 1. Diarrhea secondary to Cdiff infection Stool positive for Cdiff Leukocytosis improving, Afebrile. Oral hydration adequate Continue PO Vancomycin for 2 weeks. PCP follow up as out-patient. 2. Chronic Systolic CHF/Cardiomyopathy s/p AICD (s/p episode of VT/Torsades psot-op) Evaluated by Cardiology - on BB, Entresto, Spironolactone. Torsemide to resume on discharge. Follow up at [facility] on discharge as per Cardio. 3. Paroxysmal Atrial fibrillation - currently in SR. Continue BB and Eliquis. 4. Hx Substance abuse - reports remote history of alcohol, cocaine, heroin. Mild tremor, no overt withdrawal symptoms, will monitor. Will continue MVI, Thiamine, Folic Acid. 5. Hypokalemia - repleted. Medically stable and optimized for discharge on oral Vancomycin with PCP and Cardiology follow up.
[2020-03-31 18:19] VITALS: BP 126/80; PULSE 60; TEMP 98
== END 2020-03-31 18:00 | disposition home or self-care (01) | DRG 248 ==
LOC: JER 18:40 → JERBED 03-29 02:22 → OBSVTOIN 03-29 02:46 → J8W 03-29 17:35 → JICU 03-30 01:18
PROVIDERS: ADMIT Internal Medicine
DX: A04.72 Enterocolitis due to Clostridium difficile, not specified as recurrent (principal); Z95.810 Presence of automatic (implantable) cardiac defibrillator; F10.10 Alcohol abuse, uncomplicated; F41.9 Anxiety disorder, unspecified; E87.6 Hypokalemia; I42.0 Dilated cardiomyopathy; I11.0 Hypertensive heart disease with heart failure; I50.22 Chronic systolic (congestive) heart failure; I48.0 Paroxysmal atrial fibrillation; E83.42 Hypomagnesemia; E87.1 Hypo-osmolality and hyponatremia; D72.829 Elevated white blood cell count, unspecified
CPT/HCPCS: 36415; 71045-TC-FY; 74177-TC; 80048; 80053; 80307; 81003; 82962; 83735; 84100; 84484; 85025; 85610; 87040; 87045; 87046; 87086; 87177; 87186; 87209; 87324; 87328; 87329; 87389; 87449; 87798; 93005; 93010; 99285-25; G0378; J0131; J1644; U0003

== ENCOUNTER 2020-04-12 20:20 | Inpatient (IN) | payer OTHER ==
--- NOTE | 2020-04-12 20:29 | PDOC ---
Rapid Medical Evaluation Chief Complaint: Diarrhea Time Seen by Provider: 04/12/20 20:24 Medical Evaluation: Allergies Allergy/AdvReac Type Severity Reaction Status Date / Time No Known Allergies Allergy Verified 03/28/20 18:53 04/12/20 20:25 I have performed a brief in-person evaluation of this patient. The patient presents with a chief complaint of: recently admitted and treated for c-diff over a weeks ago and finished Abx 2 days ago and now started having diarrhea again yesterday similar to when he had the c-diff. report diarrhea started as mild yesterday and progressively getting worse today. Denies fever, blood or mucoid stool Pertinent physical exam findings: A&Ox 3 in NAD I have ordered the following: CBC, Stool cx, cmp The patient will proceed to the ED for further evaluation. Discharge Disposition - Diagnosis Diarrhea of presumed infectious origin - Discharge Dispostion Condition at time of disposition: Stable - Referrals - Patient Instructions - Post Discharge Activity
[2020-04-12] MEDS ORDERED: FAMOTIDINE 20 MG/50 ML IVPB 20 MG/50 ML MG IVPB ONE ×2 (22:03→23:51)
[2020-04-12] MEDS ORDERED: SODIUM CHLORIDE 500 ML IV STA (22:03)
[2020-04-12] MEDS ORDERED: ACETAMINOPHEN 1000 MG/100 ML VIAL (NON FORMULARY) IVPB ONE (22:03)
[2020-04-12 22:39] LABS: BASO % 0.4 % (0-2.0); EOS % 0.2 % (0-4.5); HEMATOCRIT 37.9 % (35.4-49); HEMOGLOBIN 12.7 GM/dL (11.7-16.9); LYMPH % 4.3 % (8-40); MCH 33.3 pg (25.7-33.7); MCHC 33.5 g/dl (32.0-35.9); MEAN CELL VOLUME 99.2 fl (80-96); MEAN PLT VOLUME 7.5 fl (7.5-11.1); MONO % 6.5 % (3.8-10.2); NEUT % 88.6 % (42.8-82.8); PLATELET COUNT 167 K/MM3 (134-434); RBC 3.82 M/mm3 (4.00-5.60); RDW 17.2 % (11.9-15.9); WHITE BLOOD COUNT 19.8 K/mm3 (4.0-10.0)
--- NOTE | 2020-04-12 22:47 | PDOC ---
Documentation entered by Colby Molina SCRIBE, acting as scribe for Michelle Barnes DO. Michelle Barnes DO: This documentation has been prepared by the Jesse duarte Xhesika, SCRIBE, under my direction and personally reviewed by me in its entirety. I confirm that the documentation accurately reflects all work, treatment, procedures, and medical decision making performed by me. Attending Attestation - Resident Resident Name: Cory Chavarria - ED Attending Attestation I have performed the following: I have examined & evaluated the patient, The case was reviewed & discussed with the resident, I agree w/resident's findings & plan - HPI HPI: 04/12/20 21:44 The patient is a 39y/o M with a pmh of c-diff, A. fib, V. fib arrest, and CHF who presents to the ED with diarrhea since yesterday. Pt states he was recently admitted and treated for c-diff (finished Abx 2 days ago). Pt states his diarrhea started as mild yesterday and progressively getting worse today, similar to his previous C-diff symptoms. Allergies: NKDA - Physicial Exam PE: 04/12/20 21:48 agree with resident exam - Medical Decision Making 04/12/20 21:52 The patient is a 39y/o M with a history of C-diff who presents with multiple episodes of explosive diarrhea. Plan for labs, CT scan abdomen/pelvis and chris hydration due to history of cardiomyopathy Plan for admission for further management Discharge - Discharge Information Problems reviewed: Yes Clinical Impression/Diagnosis: Diarrhea of presumed infectious origin Condition: Stable - Follow up/Referral - Patient Discharge Instructions - Post Discharge Activity
[2020-04-12 22:52] LABS: INR 1.53 (0.83-1.09); PROTHROMBIN TIME (PATIENT) 18.1 SEC (9.7-13.0)
--- NOTE | 2020-04-12 22:52 | PDOC ---
History of Present Illness - General Chief Complaint: Diarrhea Stated Complaint: SICK Time Seen by Provider: 04/12/20 20:24 History Source: Patient Exam Limitations: No Limitations - History of Present Illness Initial Comments: Mayur is a 39 yo M w a hx of heart failure (EF 10-15%), AFIB on apixaban, recent placement of defibrillator, and recent C-Diff infection from Abx he was taking post cardiac defibrillator surgery who presents to the ER with explosive watery diarrhea over ten times daily saying he believes his C-diff infection has returned as he has the same symptoms he had last time he had C-diff however his abdominal pain is worse today. He finished a 7 day course of oral vancomycin last week but was told there is a good chance the infection returns. He presents today bc he believes the infection is back with a vengeance. He cannot sit on the toilet anymore because his buttocks hurts too much. He states he needs pain control and requests for medications to rid the infection. Denies chest pain, SOB, difficulty breathing, nausea, vomiting, fevers, or chill s. 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 Denies illicit drug usage Allergies: NKA, NKDA Past History - Medical History Allergies/Adverse Reactions: Allergies Allergy/AdvReac Type Severity Reaction Status Date / Time No Known Allergies Allergy Verified 03/28/20 18:53 Home Medications: Ambulatory Orders Apixaban [Eliquis] 5 mg PO BID 03/29/20 Folic Acid 1 mg PO DAILY 03/29/20 Magnesium Oxide [Mag-Oxide] 200 mg PO BID 03/29/20 Metoprolol Succinate [Toprol Xl] 25 mg PO DAILY 03/29/20 Multivitamin [Poly-Vitamin] 1 tab PO DAILY 03/29/20 Sacubitril/Valsartan [Entresto 24 mg-26 mg Tablet] 1 tab PO BID 03/29/20 Spironolactone 25 mg PO DAILY 03/29/20 Thiamine Mononitrate (Vit B1) [Cyto B-1] 3 tab PO DAILY 03/29/20 Torsemide [Demadex -] 20 mg PO DAILY 03/29/20 Vancomycin Oral Solution 125 mg PO QID #28 capsule 03/31/20 Anemia: No Asthma: No Cancer: No Cardiac Disorders: Yes (DFIB PLACED) CVA: No COPD: No CHF: No Dementia: No Diabetes: No GI Disorders: No Disorders: No HTN: Yes Hypercholesterolemia: No Liver Disease: No Seizures: No Thyroid Disease: No - Surgical History Cardiac Surgery: Yes (DFIB PLACED) - Immunization History Immunization Up to Date: Yes - Psycho-Social/Smoking History Smoking History: Never smoked Have you smoked in the past 12 months: No Number of Cigarettes Smoked Daily: 0 - Substance Abuse Hx (Audit-C & DAST Scrn) How often the patient has a drink containing alcohol: Monthly or less Number of drinks the patient has on a typical day: 1 or 2 How often the patient has six or more drinks on one occasion: Never Score: In Men: 4 or > Positive; In Women: 3 or > Positive: 1 Screen Result (Pos requires Nsg. Audit-10AR): Negative Review of Systems - Review of Systems Able to Perform ROS?: Yes Comments:: CONSTITUTIONAL: Absent: fever, no chills, no fatigue EYES: Absent: visual changes ENT: Absent: ear pain, no sore throat CARDIOVASCULAR: Absent: chest pain, no palpitations RESPIRATORY: Absent: cough, no SOB GI: Present: Abdominal pain, diarrhea Absent: no nausea, no vomiting, no constipation, GENITOURINARY: Absent: dysuria, no frequency, no hematuria MUSKULOSKELETAL: Absent: back pain, no arthralgia, no myalgia SKIN: Absent: rash NEURO: Absent: headache *Physical Exam - Vital Signs Last Vital Signs Temp Pulse Resp BP Pulse Ox 97.8 F 102 H 20 97/53 L 96 04/12/20 20:25 04/12/20 20:25 04/12/20 20:25 04/12/20 20:25 04/12/20 20:25 - Physical Exam GENERAL: Well-appearing, well-nourished. Mild distress. HEENT: Normocephalic, atraumatic. PERRL, EOM intact. CARDIOVASCULAR: Normal S1, S2. Regular rate and rhythm. PULMONARY: No evidence of respiratory distress. Lungs clear to auscultation bilaterally. No wheezing, rales or rhonchi. ABDOMEN: The abdomen is overall soft but there is diffuse discomfort to deep palpation. No rebound or guarding. No peritoneal signs. EXTREMITIES: Normal ROM in all four extremities. No gross deformities. SKIN: Warm, dry. No rash NEUROLOGICAL: No focal neurological deficits. ED Treatment Course - LABORATORY CBC & Chemistry Diagram: 04/12/20 22:16 04/12/20 22:16 - RADIOLOGY Radiology Studies Ordered: Category Date Time Status ABDOMEN & PELVIS CT WITH CONTR [CT] Stat CT Scan 04/12/20 22:05 Ordered Medical Decision Making - Medical Decision Making Mayur is a 39 yo M w a hx of heart failure (EF 10-15%), AFIB on apixaban, recent placement of defibrillator, and recent C-Diff infection from Abx he was taking post cardiac defibrillator surgery who presents to the ER with explosive watery diarrhea over ten times daily saying he believes his C-diff infection has returned as he has the same symptoms he had last time he had C-diff however his abdominal pain is worse today. He finished a 7 day course of oral vancomycin last week but was told there is a good chance the infection returns. He presents today bc he believes the infection is back with a vengeance. He cannot sit on the toilet anymore because his buttocks hurts too much. He states he needs pain control and requests for medications to rid the infection. Vital Signs Temp Pulse Resp BP Pulse Ox 97.8 F 102 H 20 97/53 L 96 04/12/20 20:25 04/12/20 20:25 04/12/20 20:25 04/12/20 20:25 04/12/20 20:25 DDx IBNLT: C-diff vs toxic megacolon, dehydration, heart failure, electrolyte/metabolic disturbance, dehydration Plan: Labs, gentle hydration, CTAP, stool and urine studies, Abx for likely C- diff, admission to hospital. CTAP: IMPRESSION: Moderate diffuse colitis with probable mild ileus but no toxic megacolon. CBC,CMP WBC 19.8 K/mm3 (4.0-10.0) H 04/12/20 22:16 RBC 3.82 M/mm3 (4.00-5.60) L 04/12/20 22:16 Hgb 12.7 GM/dL (11.7-16.9) 04/12/20 22:16 Hct 37.9 % (35.4-49) 04/12/20 22:16 MCV 99.2 fl (80-96) H 04/12/20 22:16 MCH 33.3 pg (25.7-33.7) 04/12/20 22:16 MCHC 33.5 g/dl (32.0-35.9) 04/12/20 22:16 RDW 17.2 % (11.9-15.9) H 04/12/20 22:16 Plt Count 167 K/MM3 (134-434) D 04/12/20 22:16 MPV 7.5 fl (7.5-11.1) 04/12/20 22:16 Absolute Neuts (auto) 17.6 K/mm3 (1.5-8.0) H 04/12/20 22:16 Neutrophils % 88.6 % (42.8-82.8) H D 04/12/20 22:16 Lymphocytes % 4.3 % (8-40) L D 04/12/20 22:16 Monocytes % 6.5 % (3.8-10.2) 04/12/20 22:16 Eosinophils % 0.2 % (0-4.5) D 04/12/20 22:16 Basophils % 0.4 % (0-2.0) 04/12/20 22:16 Nucleated RBC % 0 % (0-0) 04/12/20 22:16 Sodium 135 mmol/L (136-145) L 04/12/20 22:16 Potassium 4.0 mmol/L (3.5-5.1) 04/12/20 22:16 Chloride 100 mmol/L (98-107) 04/12/20 22:16 Carbon Dioxide 24 mmol/L (21-32) 04/12/20 22:16 Anion Gap 11 MMOL/L (8-16) 04/12/20 22:16 BUN 7.8 mg/dL (7-18) 04/12/20 22:16 Creatinine 1.0 mg/dL (0.55-1.3) 04/12/20 22:16 Est GFR (CKD-EPI)AfAm 110.17 04/12/20 22:16 Est GFR (CKD-EPI)NonAf 95.05 04/12/20 22:16 Random Glucose 136 mg/dL (74-106) H 04/12/20 22:16 Lactic Acid 3.0 mmol/L (0.4-2.0) H* 04/12/20 22:16 Calcium 9.6 mg/dL (8.5-10.1) 04/12/20 22:16 Phosphorus 4.0 mg/dL (2.5-4.9) 04/12/20 22:16 Magnesium 1.9 mg/dL (1.8-2.4) 04/12/20 22:16 Total Bilirubin 2.2 mg/dL (0.2-1) H 04/12/20 22:16 AST 33 U/L (15-37) 04/12/20 22:16 ALT 32 U/L (13-61) 04/12/20 22:16 Alkaline Phosphatase 148 U/L (45-117) H 04/12/20 22:16 Creatine Kinase 33 U/L (26-308) 04/12/20 22:16 Troponin I < 0.02 ng/ml (0.00-0.05) 04/12/20 22:16 Total Protein 7.3 g/dl (6.4-8.2) 04/12/20 22:16 Albumin 3.5 g/dl (3.4-5.0) 04/12/20 22:16 Abx: Adina vanc + metronidazole Dispo: Admit for C diff colitis recurrence Discharge - Discharge Information Problems reviewed: Yes Clinical Impression/Diagnosis: Diarrhea of presumed infectious origin Condition: Stable - Admission Yes - Follow up/Referral - Patient Discharge Instructions - Post Discharge Activity
[2020-04-12 23:18] LABS: ALBUMIN 3.5 g/dl (3.4-5.0); BILIRUBIN,TOTAL 2.2 mg/dL (0.2-1); BLOOD UREA NITROGEN 7.8 mg/dL (7-18); CALCIUM 9.6 mg/dL (8.5-10.1); TOT PROT 7.3 g/dl (6.4-8.2)
[2020-04-12 23:20] LABS: MAGNESIUM 1.9 mg/dL (1.8-2.4)
[2020-04-12] MEDS ORDERED: ACETAMINOPHEN INJECTION 100 ML IVPB ONE (23:51)
--- NOTE | 2020-04-13 02:50 | PN ---
Teaching Attending Note Name of Resident: Edis Alvarenga ATTENDING PHYSICIAN STATEMENT I saw and evaluated the patient. I reviewed the resident's note and discussed the case with the resident. I agree with the resident's findings and plan as documented. SUBJECTIVE: 39yoM with history of polysubstance abuse in remission, nonischemic cardiomyopat hy HFrEF 10-15% s/p AICD, atiral fibrillation on Eliquis, and recent admission with C. diff who presents due to recurrent diarrhea, abdominal pain, and fever. Patient was recently discharged 03/31 with oral vancomycin, which he completed after total of 10 days. Notes the pain had resolved and stools were semi-formed for a few days afterward but 3 days prior to presentation developed frequent diarrhea, abd pain, and fevers again. Yesterday had at least 20 episodes of diarrhea. Endorses nausea but no chest pain, palpitations, syncope, shortness of breath. No melena or hematochezia. Patient was afebrile in the ED, mildly tachycardic, BP 97/53. Labs notable for WBC 19.8, creatinine 1.0, albumin 3.5. CT abd/pelvis on prelim read showed evidence of moderate diffuse colitis with probable mild ileus but no toxic megacolon. He received IV Flagyl, 500cc IVF with improvement in blood pressure. OBJECTIVE: Vital Signs - 24 hr 04/12/20 04/13/20 20:25 02:39 Temperature 97.8 F Pulse Rate 102 H Pulse Rate [ 84 Apical] Respiratory 20 Rate Blood Pressure 97/53 L Blood Pressure 112/71 [Right] O2 Sat by Pulse 96 100 Oximetry (%) EXAM Gen: awake, alert, NAD HEENT: NC/AT CV: RRR, no MRG appreicated. AICD on left chest wall, well-healing scar. Numb over device, no overlying erythema or tenderness Abd: Soft, mildly distended. Tender to palpation lower quadrants. + bowel sounds Ext: No edema Psych: AOx3, appropriate mood/affect Laboratory Results - last 24 hr 04/12/20 04/12/20 04/12/20 22:16 22:16 22:16 WBC 19.8 H RBC 3.82 L Hgb 12.7 Hct 37.9 MCV 99.2 H MCH 33.3 MCHC 33.5 RDW 17.2 H Plt Count 167 D MPV 7.5 Absolute Neuts (auto) 17.6 H Neutrophils % 88.6 H D Lymphocytes % 4.3 L D Monocytes % 6.5 Eosinophils % 0.2 D Basophils % 0.4 Nucleated RBC % 0 PT with INR 18.10 H INR 1.53 H PTT (Actin FS) 37.0 H Sodium 135 L Potassium 4.0 Chloride 100 Carbon Dioxide 24 Anion Gap 11 BUN 7.8 Creatinine 1.0 Est GFR (CKD-EPI)AfAm 110.17 Est GFR (CKD-EPI)NonAf 95.05 Random Glucose 136 H Lactic Acid Calcium 9.6 Phosphorus Magnesium Total Bilirubin 2.2 H AST 33 ALT 32 Alkaline Phosphatase 148 H Creatine Kinase Troponin I Total Protein 7.3 Albumin 3.5 Lipase Urine Color Urine Appearance Urine pH Ur Specific [place] Urine Protein Urine Glucose (UA) Urine Ketones Urine Blood Urine Nitrite Urine Bilirubin Urine Urobilinogen Ur Leukocyte Esterase Urine WBC (Auto) Urine RBC (Auto) Urine Casts (Auto) U Epithel Cells (Auto) Urine Bacteria (Auto) Blood Type Antibody Screen 04/12/20 04/12/20 04/12/20 22:16 22:16 22:16 WBC RBC Hgb Hct MCV MCH MCHC RDW Plt Count MPV Absolute Neuts (auto) Neutrophils % Lymphocytes % Monocytes % Eosinophils % Basophils % Nucleated RBC % PT with INR INR PTT (Actin FS) Sodium Potassium Chloride Carbon Dioxide Anion Gap BUN Creatinine Est GFR (CKD-EPI)AfAm Est GFR (CKD-EPI)NonAf Random Glucose Lactic Acid 3.0 H* Calcium Phosphorus 4.0 Magnesium 1.9 Total Bilirubin AST ALT Alkaline Phosphatase Creatine Kinase 33 Troponin I < 0.02 Total Protein Albumin Lipase 83 Urine Color Urine Appearance Urine pH Ur Specific [place] Urine Protein Urine Glucose (UA) Urine Ketones Urine Blood Urine Nitrite Urine Bilirubin Urine Urobilinogen Ur Leukocyte Esterase Urine WBC (Auto) Urine RBC (Auto) Urine Casts (Auto) U Epithel Cells (Auto) Urine Bacteria (Auto) Blood Type A POSITIVE Antibody Screen Negative 04/13/20 04:02 WBC RBC Hgb Hct MCV MCH MCHC RDW Plt Count MPV Absolute Neuts (auto) Neutrophils % Lymphocytes % Monocytes % Eosinophils % Basophils % Nucleated RBC % PT with INR INR PTT (Actin FS) Sodium Potassium Chloride Carbon Dioxide Anion Gap BUN Creatinine Est GFR (CKD-EPI)AfAm Est GFR (CKD-EPI)NonAf Random Glucose Lactic Acid Calcium Phosphorus Magnesium Total Bilirubin AST ALT Alkaline Phosphatase Creatine Kinase Troponin I Total Protein Albumin Lipase Urine Color Yellow Urine Appearance Clear Urine pH 5.0 Ur Specific [place] 1.043 H Urine Protein Negative Urine Glucose (UA) Negative Urine Ketones Negative Urine Blood Negative Urine Nitrite Negative Urine Bilirubin Negative Urine Urobilinogen 0.2 Ur Leukocyte Esterase Trace Urine WBC (Auto) 3 Urine RBC (Auto) 5 Urine Casts (Auto) 1 U Epithel Cells (Auto) 2 Urine Bacteria (Auto) 6 Blood Type Antibody Screen ASSESSMENT AND PLAN: 39yoM with history of polysubstance abuse in remission, nonischemic cardiomyopathy HFrEF 10-15% s/p AICD, atiral fibrillation on Eliquis, and recent admission with C. diff who presents due to recurrent diarrhea, abdominal pain, and fever. Severe sepsis secondary to C. Diff colitis with possible mild ileus Reported fever with tachycardia and leukocytosis as well as elevated lactic s/p 500cc fluids, received IV Flagyl Symptoms improved significantly after completing 10d vancomycin course but returned within 2-3 days - continue Flagyl and oral vancomycin - NPO for now - ID consult HFrEF 10-15% s/p AICD Appears mildly dehydrated currently Given poor EF will hold off on additional IVF for now, hold torsemide and spironolactone. - hold torsemide, spironolactone; resume as able - continue entresto, hold for SBP <100. Atrial fibrillation: continue metoprolol, apxiaban DVT ppx: continue apixaban
[2020-04-13 03:31] LABS: LIPASE 83 U/L (73-393)
[2020-04-13 04:14] LABS: EPI CELLS 2 /uL (0-25.1); HYALINE CASTS 1 /uL (0-3.1); URINE APPEARANCE CLEAR; URINE BACTERIA 6 /uL (0-1359); URINE BILIRUBIN NEGATIVE (NEGATIVE); URINE COLOR YELLOW; URINE GLUCOSE (UA) NEGATIVE (NEGATIVE); URINE KETONE NEGATIVE (NEGATIVE); URINE LEUK ESTERASE TRACE (NEGATIVE); URINE NITRITE NEGATIVE (NEGATIVE); URINE PROTEIN NEGATIVE (NEGATIVE); URINE RBC 5 /uL (0-23.9); URINE UROBILINOGEN 0.2 mg/dL (0.2-1.0); URINE WBC 3 /uL (0-25.8)
[2020-04-13] MEDS ORDERED: VANCOMYCIN 250 MG/5 ML ORAL SOLUTION PO SCH (06:00)
[2020-04-13] MEDS ORDERED: HEPARIN NA (PORCINE) 5,000 UNITS/ML 1ML VIAL SQ SCH (06:00)
[2020-04-13] MEDS ORDERED: HEPARIN NA (PORCINE) 5,000 UNITS/ML 1ML VIAL ONE (06:09)
[2020-04-13] MEDS ORDERED: VANCOMYCIN 1 GRAM (PRE-DOCKED) 1,000 MG/250 ML BAG IVPB ONE (06:09)
[2020-04-13] MEDS ORDERED: morphine CARPU-JECT 4 MG/1 ML DISP.SYRIN IVPUSH ONE (06:33)
[2020-04-13] MEDS ORDERED: morphine SULFATE 4 MG/ML VIAL ONE (06:33)
--- NOTE | 2020-04-13 07:24 | HP ---
CHIEF COMPLAINT: Explosive watery diarrhea for 2 days PCP: Dr. Hinds HISTORY OF PRESENT ILLNESS: 39 year old male patient with past medical history that includes Recent C. Diff infection, CHF (EF 10-15% with AICD), and AFib on Eliquis, who presented to the emergency room with explosive watery diarrhea for 2 days. He was recently discharged from [facility] for C. Diff and completed the course of oral Vancomycin antibiotics at home and reported feeling better, with stool that was starting to become normal again, but his diarrhea then returned 2 days ago with 10 watery diarrhea followed by 20 watery diarrhea the next day with abdominal pain. He reports that the symptoms are similar to his symptoms he had had for his C. Diff that he was taking the antibiotics for. He reports compliance on his medications. He also reports measuring a fever of 102.7F at home, which then dropped to 97F. He has had no appetite, eating very little, but reports being able to stay hydrated with fluids. He also felt nauseous and vomited twice nonbloody vomit containing the digested food that he had eaten. ER course was notable for: (1) CT A/P showed mild diffuse colitis with probably mild ileus but no toxic megacolon (2) (3) Recent Travel: Denies PAST MEDICAL HISTORY: CHF (EF 10-15% with AICD), AFib on Eliquis PAST SURGICAL HISTORY: Defibrillator insertion Social History: Smokin pack for 1 year. No longer smokes Alcohol: Used to drink 2 bottles daily, now only 1 glass occasionally Drugs: Denies Allergies No Known Allergies Allergy (Verified 03/28/20 18:53) HOME MEDICATIONS: Home Medications Medication Instructions Recorded Apixaban [Eliquis] 5 mg PO BID 03/29/20 Folic Acid 1 mg PO DAILY 03/29/20 Magnesium Oxide [Mag-Oxide] 200 mg PO BID 03/29/20 Metoprolol Succinate [Toprol Xl] 25 mg PO DAILY 03/29/20 Multivitamin [Poly-Vitamin] 1 tab PO DAILY 03/29/20 Sacubitril/Valsartan [Entresto 24 1 tab PO BID 03/29/20 mg-26 mg Tablet] Spironolactone 25 mg PO DAILY 03/29/20 Thiamine Mononitrate (Vit B1) 3 tab PO DAILY 03/29/20 [Cyto B-1] Torsemide [Demadex -] 20 mg PO DAILY 03/29/20 Vancomycin Oral Solution 125 mg PO QID #28 capsule 03/31/20 REVIEW OF SYSTEMS CONSTITUTIONAL: fever/chills, no appetite Absent: GASTROINTESTINAL: explosive watery diarrhea x10 to 20 per day, nausea, vomited twice with nonbloody vomit containing his digested food Absent: no blood in stool PHYSICAL EXAMINATION Vital Signs - 24 hr 04/12/20 04/13/20 04/13/20 20:25 02:39 05:09 Temperature 97.8 F Pulse Rate 102 H Pulse Rate [ 84 Apical] Respiratory 20 Rate Blood Pressure 97/53 L Blood Pressure 112/71 [Right] O2 Sat by Pulse 96 100 99 Oximetry (%) GENERAL: Awake, alert, and fully oriented, in no acute distress. HEAD: Normal with no signs of trauma. EYES: Pupils equal, round and reactive to light, extraocular movements intact, sclera anicteric, conjunctiva clear. No lid lag. EARS, NOSE, THROAT: Ears normal, nares patent, oropharynx clear without exudates. Moist mucous membranes. NECK: Normal range of motion, supple without lymphadenopathy, JVD, or masses. LUNGS: Breath sounds equal, clear to auscultation bilaterally. No wheezes, and no crackles. No accessory muscle use. HEART: Regular rate and rhythm, normal S1 and S2 without murmur, rub or gallop. ABDOMEN: Soft, diffusely tender especially in right and left lower quadrants, not distended, hyperactive bowel sounds, no guarding, no rebound, no masses. MUSCULOSKELETAL: Normal range of motion at all joints. No bony deformities or t enderness. UPPER EXTREMITIES: 2+ pulses, warm, well-perfused. No cyanosis. No clubbing. No peripheral edema. LOWER EXTREMITIES: 2+ pulses, warm, well-perfused. No calf tenderness. No peripheral edema. NEUROLOGICAL: Normal speech. PSYCHIATRIC: Cooperative. Good eye contact. Appropriate mood and affect. SKIN: Warm, dry, normal turgor, no rashes or lesions noted, normal capillary refill. Feet with some shedding skin bilaterally. Laboratory Results - last 24 hr 04/12/20 04/12/20 04/12/20 22:16 22:16 22:16 WBC 19.8 H RBC 3.82 L Hgb 12.7 Hct 37.9 MCV 99.2 H MCH 33.3 MCHC 33.5 RDW 17.2 H Plt Count 167 D MPV 7.5 Absolute Neuts (auto) 17.6 H Neutrophils % 88.6 H D Lymphocytes % 4.3 L D Monocytes % 6.5 Eosinophils % 0.2 D Basophils % 0.4 Nucleated RBC % 0 PT with INR 18.10 H INR 1.53 H PTT (Actin FS) 37.0 H Sodium 135 L Potassium 4.0 Chloride 100 Carbon Dioxide 24 Anion Gap 11 BUN 7.8 Creatinine 1.0 Est GFR (CKD-EPI)AfAm 110.17 Est GFR (CKD-EPI)NonAf 95.05 Random Glucose 136 H Lactic Acid Calcium 9.6 Phosphorus Magnesium Total Bilirubin 2.2 H AST 33 ALT 32 Alkaline Phosphatase 148 H Creatine Kinase Troponin I Total Protein 7.3 Albumin 3.5 Lipase Urine Color Urine Appearance Urine pH Ur Specific [place] Urine Protein Urine Glucose (UA) Urine Ketones Urine Blood Urine Nitrite Urine Bilirubin Urine Urobilinogen Ur Leukocyte Esterase Urine WBC (Auto) Urine RBC (Auto) Urine Casts (Auto) U Epithel Cells (Auto) Urine Bacteria (Auto) Blood Type Antibody Screen 04/12/20 04/12/20 04/12/20 22:16 22:16 22:16 WBC RBC Hgb Hct MCV MCH MCHC RDW Plt Count MPV Absolute Neuts (auto) Neutrophils % Lymphocytes % Monocytes % Eosinophils % Basophils % Nucleated RBC % PT with INR INR PTT (Actin FS) Sodium Potassium Chloride Carbon Dioxide Anion Gap BUN Creatinine Est GFR (CKD-EPI)AfAm Est GFR (CKD-EPI)NonAf Random Glucose Lactic Acid 3.0 H* Calcium Phosphorus 4.0 Magnesium 1.9 Total Bilirubin AST ALT Alkaline Phosphatase Creatine Kinase 33 Troponin I < 0.02 Total Protein Albumin Lipase 83 Urine Color Urine Appearance Urine pH Ur Specific [place] Urine Protein Urine Glucose (UA) Urine Ketones Urine Blood Urine Nitrite Urine Bilirubin Urine Urobilinogen Ur Leukocyte Esterase Urine WBC (Auto) Urine RBC (Auto) Urine Casts (Auto) U Epithel Cells (Auto) Urine Bacteria (Auto) Blood Type A POSITIVE Antibody Screen Negative 04/13/20 04:02 WBC RBC Hgb Hct MCV MCH MCHC RDW Plt Count MPV Absolute Neuts (auto) Neutrophils % Lymphocytes % Monocytes % Eosinophils % Basophils % Nucleated RBC % PT with INR INR PTT (Actin FS) Sodium Potassium Chloride Carbon Dioxide Anion Gap BUN Creatinine Est GFR (CKD-EPI)AfAm Est GFR (CKD-EPI)NonAf Random Glucose Lactic Acid Calcium Phosphorus Magnesium Total Bilirubin AST ALT Alkaline Phosphatase Creatine Kinase Troponin I Total Protein Albumin Lipase Urine Color Yellow Urine Appearance Clear Urine pH 5.0 Ur Specific [place] 1.043 H Urine Protein Negative Urine Glucose (UA) Negative Urine Ketones Negative Urine Blood Negative Urine Nitrite Negative Urine Bilirubin Negative Urine Urobilinogen 0.2 Ur Leukocyte Esterase Trace Urine WBC (Auto) 3 Urine RBC (Auto) 5 Urine Casts (Auto) 1 U Epithel Cells (Auto) 2 Urine Bacteria (Auto) 6 Blood Type Antibody Screen ASSESSMENT/PLAN: 39 year old male patient with past medical history that includes Recent C. Diff, CHF (EF 10-15% with AICD), and AFib on Eliquis, who presented to the emergency room with explosive watery diarrhea for 2 days. 1. Severe Sepsis likely secondary to C. Diff possibly fulminant due to CT A/P finding of probable mild ileus - Patient reported a fever of 102.7F at home, WBC count 19.8, HR 102bpm - Lactic acid 3.0 - IV Metronidazole 500 TID - PO Vancomycin 125 QID - Consulted ID - May need the pulsed/tapered vancomycin dosing due to having had a recent C. Diff infection 2. HFrEF 10-15% with AICD - Entresto - Torsemide and Spironolactone held 3. AFib on Eliquis - Metoprolol, Eliquis #FEN - Monitoring Electrolytes. NPO. DVT PPx - Eliquis Family Medical History Family History: As Documented Family Hx Coronary Artery Disease: Father Visit type - Emergency Visit Emergency Visit: Yes ED Registration Date: 04/12/20 Care time: The patient presented to the Emergency Department on the above date and was hospitalized for further evaluation of their emergent condition. - New Patient This patient is new to me today: Yes Date on this admission: 04/13/20 - Critical Care Critical Care patient: No ATTENDING PHYSICIAN STATEMENT I saw and evaluated the patient. I reviewed the resident's note and discussed the case with the resident. I agree with the resident's findings and plan as documented. SUBJECTIVE: OBJECTIVE: ASSESSMENT AND PLAN:
[2020-04-13] MEDS ORDERED: MULTIVITAMIN PO SCH (10:00)
[2020-04-13] MEDS ORDERED: TORSEMIDE 20 MG TABLET (FP) PO SCH (10:00)
[2020-04-13] MEDS ORDERED: FOLIC ACID 1 MG TABLET (FP) PO SCH (10:00)
[2020-04-13] MEDS ORDERED: SPIRONOLACTONE 25 MG TABLET PO SCH (10:00)
[2020-04-13] MEDS ORDERED: MULTIVITAMINS (DAILY MVI) TABLET (FP) PO SCH (10:00)
[2020-04-13] MEDS ORDERED: MAGNESIUM OXIDE 400 MG TABLET (FP) PO SCH (10:00)
[2020-04-13] MEDS ORDERED: MAGNESIUM OXIDE 200 MG PO SCH (10:00)
[2020-04-13] MEDS ORDERED: MULTIVITAMINS (DAILY MVI) TABLET (FP) ONE (10:29)
[2020-04-13] MEDS ORDERED: FOLIC ACID 1 MG TABLET (FP) ONE (10:29)
[2020-04-13] MEDS ORDERED: APIXABAN 5 MG TABLET ONE (10:29)
[2020-04-13] MEDS ORDERED: metoPROLOL SUCCINATE 25 MG TAB.SR.24H (FP) ONE ×2 (10:29→13:40)
[2020-04-13] MEDS: SACUBITRIL/VALSARTAN 24 MG-26 MG TABLET PO SCH ×2 (10:35→21:46)
[2020-04-13] MEDS: APIXABAN 5 MG TABLET PO SCH ×2 (10:35→21:46)
[2020-04-13] MEDS: FOLIC ACID 1 MG TABLET (FP) PO SCH (10:35)
[2020-04-13 10:50] LABS: HEMATOCRIT 36.3 % (35.4-49); HEMOGLOBIN 12.2 GM/dL (11.7-16.9); MCH 33.4 pg (25.7-33.7); MCHC 33.6 g/dl (32.0-35.9); MEAN CELL VOLUME 99.4 fl (80-96); MEAN PLT VOLUME 7.5 fl (7.5-11.1); PLATELET COUNT 165 K/MM3 (134-434); RBC 3.66 M/mm3 (4.00-5.60); RDW 17.4 % (11.9-15.9); WHITE BLOOD COUNT 11.6 K/mm3 (4.0-10.0)
[2020-04-13 11:21] LABS: ALBUMIN 3.2 g/dl (3.4-5.0); BILIRUBIN,TOTAL 1.7 mg/dL (0.2-1); BLOOD UREA NITROGEN 7.8 mg/dL (7-18); CALCIUM 8.9 mg/dL (8.5-10.1); CREATININE 0.8 mg/dL (0.55-1.3); TOT PROT 6.8 g/dl (6.4-8.2)
--- NOTE | 2020-04-13 11:58 | PN ---
Teaching Attending Note Name of Resident: Mehran Barnhart ATTENDING PHYSICIAN STATEMENT I saw and evaluated the patient. I reviewed the resident's note and discussed the case with the resident. I agree with the resident's findings and plan as documented. SUBJECTIVE: Reports ongoing loose watery stool. No melena/hematochezia. No abdominal pain/nausea/vomiting. No fever/chills. OBJECTIVE: Afebrile, Hemodynamically stable. Last Vital Signs Temp Pulse Resp BP Pulse Ox 98.0 F 74 20 112/66 97 04/13/20 06:30 04/13/20 10:35 04/13/20 10:35 04/13/20 10:35 04/13/20 10:35 HEENT - Atraumatic,Normocephalic Heart - S1, S2, RRR Lungs - clear to auscultation Abdomen - Soft, non-tender. Bowel Sounds normal. Extremities - no edema, no calf tenderness. Neuro - AAO x 3. Tone/Power normal. Laboratory Results - last 24 hr 04/12/20 04/12/20 04/12/20 22:16 22:16 22:16 WBC 19.8 H RBC 3.82 L Hgb 12.7 Hct 37.9 MCV 99.2 H MCH 33.3 MCHC 33.5 RDW 17.2 H Plt Count 167 D MPV 7.5 Absolute Neuts (auto) 17.6 H Neutrophils % 88.6 H D Lymphocytes % 4.3 L D Monocytes % 6.5 Eosinophils % 0.2 D Basophils % 0.4 Nucleated RBC % 0 PT with INR 18.10 H INR 1.53 H PTT (Actin FS) 37.0 H Sodium 135 L Potassium 4.0 Chloride 100 Carbon Dioxide 24 Anion Gap 11 BUN 7.8 Creatinine 1.0 Est GFR (CKD-EPI)AfAm 110.17 Est GFR (CKD-EPI)NonAf 95.05 Random Glucose 136 H Lactic Acid Calcium 9.6 Phosphorus Magnesium Total Bilirubin 2.2 H AST 33 ALT 32 Alkaline Phosphatase 148 H Creatine Kinase Troponin I Total Protein 7.3 Albumin 3.5 Lipase Urine Color Urine Appearance Urine pH Ur Specific [place] Urine Protein Urine Glucose (UA) Urine Ketones Urine Blood Urine Nitrite Urine Bilirubin Urine Urobilinogen Ur Leukocyte Esterase Urine WBC (Auto) Urine RBC (Auto) Urine Casts (Auto) U Epithel Cells (Auto) Urine Bacteria (Auto) Blood Type Antibody Screen 04/12/20 04/12/20 04/12/20 22:16 22:16 22:16 WBC RBC Hgb Hct MCV MCH MCHC RDW Plt Count MPV Absolute Neuts (auto) Neutrophils % Lymphocytes % Monocytes % Eosinophils % Basophils % Nucleated RBC % PT with INR INR PTT (Actin FS) Sodium Potassium Chloride Carbon Dioxide Anion Gap BUN Creatinine Est GFR (CKD-EPI)AfAm Est GFR (CKD-EPI)NonAf Random Glucose Lactic Acid 3.0 H* Calcium Phosphorus 4.0 Magnesium 1.9 Total Bilirubin AST ALT Alkaline Phosphatase Creatine Kinase 33 Troponin I < 0.02 Total Protein Albumin Lipase 83 Urine Color Urine Appearance Urine pH Ur Specific [place] Urine Protein Urine Glucose (UA) Urine Ketones Urine Blood Urine Nitrite Urine Bilirubin Urine Urobilinogen Ur Leukocyte Esterase Urine WBC (Auto) Urine RBC (Auto) Urine Casts (Auto) U Epithel Cells (Auto) Urine Bacteria (Auto) Blood Type A POSITIVE Antibody Screen Negative 04/13/20 04/13/20 04/13/20 04:02 10:05 10:05 WBC 11.6 H RBC 3.66 L Hgb 12.2 Hct 36.3 MCV 99.4 H MCH 33.4 MCHC 33.6 RDW 17.4 H Plt Count 165 MPV 7.5 Absolute Neuts (auto) Neutrophils % Lymphocytes % Monocytes % Eosinophils % Basophils % Nucleated RBC % PT with INR INR PTT (Actin FS) Sodium Potassium Chloride Carbon Dioxide Anion Gap BUN Creatinine Est GFR (CKD-EPI)AfAm Est GFR (CKD-EPI)NonAf Random Glucose Lactic Acid 2.1 H Calcium Phosphorus Magnesium Total Bilirubin AST ALT Alkaline Phosphatase Creatine Kinase Troponin I Total Protein Albumin Lipase Urine Color Yellow Urine Appearance Clear Urine pH 5.0 Ur Specific [place] 1.043 H Urine Protein Negative Urine Glucose (UA) Negative Urine Ketones Negative Urine Blood Negative Urine Nitrite Negative Urine Bilirubin Negative Urine Urobilinogen 0.2 Ur Leukocyte Esterase Trace Urine WBC (Auto) 3 Urine RBC (Auto) 5 Urine Casts (Auto) 1 U Epithel Cells (Auto) 2 Urine Bacteria (Auto) 6 Blood Type Antibody Screen 04/13/20 10:05 WBC RBC Hgb Hct MCV MCH MCHC RDW Plt Count MPV Absolute Neuts (auto) Neutrophils % Lymphocytes % Monocytes % Eosinophils % Basophils % Nucleated RBC % PT with INR INR PTT (Actin FS) Sodium 136 Potassium 4.0 Chloride 104 Carbon Dioxide 25 Anion Gap 7 L BUN 7.8 Creatinine 0.8 Est GFR (CKD-EPI)AfAm 131.34 Est GFR (CKD-EPI)NonAf 113.32 Random Glucose 117 H Lactic Acid Calcium 8.9 Phosphorus Magnesium Total Bilirubin 1.7 H AST 28 ALT 29 Alkaline Phosphatase 133 H Creatine Kinase Troponin I Total Protein 6.8 Albumin 3.2 L Lipase Urine Color Urine Appearance Urine pH Ur Specific [place] Urine Protein Urine Glucose (UA) Urine Ketones Urine Blood Urine Nitrite Urine Bilirubin Urine Urobilinogen Ur Leukocyte Esterase Urine WBC (Auto) Urine RBC (Auto) Urine Casts (Auto) U Epithel Cells (Auto) Urine Bacteria (Auto) Blood Type Antibody Screen Current Medications Generic Name Dose Route Start Last Admin Trade Name Freq PRN Reason Stop Dose Admin Apixaban 5 mg 04/13/20 10:00 04/13/20 10:35 Eliquis - PO 5 mg BID JIMMY Administration Folic Acid 1 mg 04/13/20 10:00 04/13/20 10:35 Folic Acid - PO 1 mg DAILY JIMMY Administration Metronidazole 500 mg in 100 mls @ 100 mls/hr 04/13/20 10:00 04/13/20 10:35 Flagyl 500mg Premixed Ivpb - IVPB 100 mls/hr Q8H-IV JIMMY Administration Metoprolol Succinate 25 mg 04/13/20 10:00 Toprol Xl - PO DAILY [facility] Multivitamins/Minerals/Vitamin C 1 tab 04/13/20 10:00 04/13/20 10:35 Tab-A-Vit - PO 1 tab DAILY JIMMY Administration Sacubitril/Valsartan 1 tab 04/13/20 10:00 04/13/20 10:35 Entresto 24 Mg-26 Mg Tablet PO 1 tab BID JIMMY Administration Vancomycin HCl 250 mg 04/13/20 08:37 Vancomycin Oral Solution PO Q6HPO [facility] Home Medications Medication Instructions Recorded Apixaban [Eliquis] 5 mg PO BID 03/29/20 Folic Acid 1 mg PO DAILY 03/29/20 Magnesium Oxide [Mag-Oxide] 200 mg PO BID 03/29/20 Metoprolol Succinate [Toprol Xl] 25 mg PO DAILY 03/29/20 Multivitamin [Poly-Vitamin] 1 tab PO DAILY 03/29/20 Sacubitril/Valsartan [Entresto 24 1 tab PO BID 03/29/20 mg-26 mg Tablet] Spironolactone 25 mg PO DAILY 03/29/20 Thiamine Mononitrate (Vit B1) 3 tab PO DAILY 03/29/20 [Cyto B-1] Torsemide [Demadex -] 20 mg PO DAILY 03/29/20 Vancomycin Oral Solution 125 mg PO QID #28 capsule 03/31/20 Magnesium Oxide 400 mg PO BID 04/13/20 ASSESSMENT AND PLAN: 39 year old male with history of prior Polysubstance Abuse (Alcohol, cocaine, heroin), Anxiety, Non-ischemic Cardiomyopathy (EF 10-15%) s/p AICD, Atrial fibrillation (on Eliquis), recent admission with Cdiff, re-admitted for recurrence after completing oral Vancomycin course. CT A/P - Hepatosplenomegaly, diffuse Colitis 1. Acute/Recurrent Cdiff Colitis Leukocytosis improving Resumed on PO Vanco ID eval. Afebrile, Hemodynamicaly stable. 2. Chronic Systolic CHF - Non-ischemic Cardiomyopathy (EF 10-15%) s/p AICD (s/p episode of VT/Torsades psot-op) - stable. Continue Metoprolol, Entresto. Torsemide, Spironolactone held due to fluid losses. Will monitor fluid status. 3. Paroxysmal Atrial Fibrillation - continue Metoprolol and Eliquis. 4. Hx Substance abuse - reports remote history of alcohol, cocaine, heroin. No withdrawal symptoms. Will continue MVI, Thiamine, Folic Acid. DVT Px - on Eliquis.
--- NOTE | 2020-04-13 12:06 | PN ---
Progress Note (short form) - Note Progress Note: ID consult dictated imp/reccd 39 yo man admitted with recurrent diarrhea- pmh noted for dilated cardiomyopathy, s/p ICD placement March 2020 just hospitalized to 03/31 d/thea on po vancomycin for one week which he completed- was having soft stools twice a day diarrhea has markedlly worsened over last 2-3 days non bloody multiple episodes 10-20 times a day nausea and vomiting n travel no sick contacts ct scan with colitis leukocytosis noted suspect recurrent c diff blood cultures repeat stool cdiff and cultures vancomycin po iv flagyl keep hydrated history of dilated cardiomyopathy with ICD Problem List - Problems (1) Recurrent Clostridioides difficile diarrhea Code(s): A04.71 - ENTEROCOLITIS DUE TO CLOSTRIDIUM DIFFICILE, RECURRENT (2) Cardiomyopathy Code(s): I42.9 - CARDIOMYOPATHY, UNSPECIFIED (3) Presence of implantable cardioverter-defibrillator (ICD) Code(s): Z95.810 - PRESENCE OF AUTOMATIC (IMPLANTABLE) CARDIAC DEFIBRILLATOR
--- NOTE | 2020-04-13 12:58 | EKG ---
Test Reason : Blood Pressure : / mmHG Vent. Rate : 086 BPM Atrial Rate : 086 BPM P-R Int : 152 ms QRS Dur : 084 ms QT Int : 398 ms P-R-T Axes : 024 -06 027 degrees QTc Int : 476 ms NORMAL SINUS RHYTHM NORMAL ECG WHEN COMPARED WITH ECG OF 29-MAR-2020 02:47, T WAVE INVERSION NO LONGER EVIDENT IN ANTERIOR LEADS Confirmed by MD OVI, IVONNE ([id number]) on 04/13/2020 12:58:18 PM Referred By: Confirmed By:IVONNE DIOR MD
[2020-04-13] MEDS: VANCOMYCIN 250 MG/5 ML ORAL SOLUTION PO SCH ×3 (13:02→23:34)
[2020-04-13] MEDS: LACTOBACILLUS ACIDOPHILUS 1 TABLET PO SCH ×2 (13:50→17:47)
[2020-04-13] MEDS: metoPROLOL SUCCINATE 25 MG TAB.SR.24H (FP) PO SCH (13:50)
--- NOTE | 2020-04-13 13:50 | CONS ---
INFECTIOUS DISEASE CONSULTATION DATE OF CONSULTATION: DATE OF DICTATION: 04/13/2020 HISTORY: This is a 39-year-old man who was recently hospitalized February 28 to March 02 at [facility] when he presented with heart failure and new atrial fibrillation. He had a dilated cardiomyopathy and was ultimately transferred where he had a prolonged hospitalization that included respiratory failure requiring intubation. He had a defibrillator implanted in March. He was then discharged in March home and presented to [facility] March 29 with diarrhea. He was found to have Clostridium difficile and he was in the hospital from the to the then discharged on oral vancomycin for 7 days which he completed on April 07. His diarrhea has now recurred. He reports he had some fevers and chills at home with vomiting. He has been having 10 to 20 nonbloody stools a day. He had some diffuse abdominal discomfort on exam. He was admitted yesterday, started on IV Flagyl and oral vancomycin with improvement today. White count was elevated on admission and has improved as well. PAST MEDICAL HISTORY: Notable for congestive heart failure, atrial fibrillation, dilated cardiomyopathy, implanted defibrillator. He has a history of alcohol abuse as well. SOCIAL HISTORY: No cigarette use. He was drinking wine at home with his and is currently abstaining. ALLERGIES: No known drug allergies. CURRENT MEDICATIONS AT HOME: Include magnesium oxide, thiamine, folic acid, Eliquis, Entresto, poly vitamins, Toprol XL, spironolactone, torsemide. REVIEW OF SYSTEMS: He denies shortness of breath. He notes he is still having profuse diarrhea and he is still having nausea and he has had no fevers or chills since admission, though he thinks at home he did. PHYSICAL EXAMINATION: General: He is awake and alert. He is ambulating to the bathroom. He is having profuse nonbloody stools. Vital Signs: Temperature is 98, pulse of 76. Blood pressure is 118/70. Respiratory rate is 20, saturating 99% on room air. HEENT: He is normocephalic. His eyes are anicteric. Neck: Supple. Lungs: Clear to auscultation. Heart: Regular rate and rhythm. Abdomen: Soft. He has got diffuse discomfort to deep palpation. He has bowel sounds. Extremities: Without edema. White count yesterday was 19.8; this morning is 11.6; hemoglobin 12.2. Platelets are 165. BUN is 7.8 and creatinine 0.8. Lactic acid was 3 and then after repeat was 2.1. Urinalysis is negative and COVID PCR is pending. He was HIV tested in March and was negative, and stool studies have been ordered. He had a CAT scan done in the emergency room that was notable for hepatosplenomegaly and diffusely thickened colon consistent with diffuse colitis. There is no pneumoperitoneum. There is no acute appendicitis or diverticulitis. In summary this is a 39-year-old man with suspected recurrent Clostridium difficile. Would obtain blood cultures as his white count was elevated and he gave a history of fever at home. Repeat stool Clostridium difficile and stool cultures have been ordered. Continue the vancomycin p.o. Would agree with IV Flagyl as well. Keep him hydrated which is difficult because of his history of heart failure. Further recommendations to follow. Would consider GI evaluation as well. JOVANA TINEO M.D. [id number]
--- NOTE | 2020-04-13 13:59 | PN ---
Physical Exam: SUBJECTIVE: Patient seen and examined at bedside, reports that he completed his d/c vanc at home, he was feeling better and was having semi-solid bowel movements daily, but last 3 days, he experienced worsening NBNB, watery stool( about 20 episodes yesterday) with diffuse abdominal pain. OBJECTIVE: Vital Signs Period Temp Pulse Resp BP Sys/Andrea Pulse Ox Last 24 Hr 97.8 F-98.0 F 70-102 16-20 97-121/53-74 95-100 GENERAL: AAOx3, in no acute distress HEENT: NCAT, PERRLA, EOMI, sclera anicteric, conjunctiva clear, oropharynx clear w/o exudates. MMM. NECK: Normal ROM, supple, no lymphadenopathy, JVD, or masses LUNGS: CTABL no wheezes/ rhonchi/ rales. No distress, speaks in full sentences. No increased work of breathing. HEART: RRR, normal S1 S2, no M/R/G, peripheral pulses 2+ and equal b/l ABDOMEN: Soft, Diffuse TTP, + BS. No guarding or rebound. No hepatomegaly or splenomegaly. MSK: ROM WNL, NO CVA tenderness EXTREMITIES: Normal inspection. No peripheral edema. No clubbing or cyanosis. NEUROLOGICAL: CN II-XII intact. Normal speech, gait not observed, no focal sensorimotor deficits. PSYCH: Normal mood, normal affect. SKIN: Warm, Dry, normal turgor, no rashes or lesions noted Laboratory Results - last 24 hr 04/12/20 04/12/20 04/12/20 22:16 22:16 22:16 WBC 19.8 H RBC 3.82 L Hgb 12.7 Hct 37.9 MCV 99.2 H MCH 33.3 MCHC 33.5 RDW 17.2 H Plt Count 167 D MPV 7.5 Absolute Neuts (auto) 17.6 H Neutrophils % 88.6 H D Lymphocytes % 4.3 L D Monocytes % 6.5 Eosinophils % 0.2 D Basophils % 0.4 Nucleated RBC % 0 PT with INR 18.10 H INR 1.53 H PTT (Actin FS) 37.0 H Sodium 135 L Potassium 4.0 Chloride 100 Carbon Dioxide 24 Anion Gap 11 BUN 7.8 Creatinine 1.0 Est GFR (CKD-EPI)AfAm 110.17 Est GFR (CKD-EPI)NonAf 95.05 Random Glucose 136 H Lactic Acid Calcium 9.6 Phosphorus Magnesium Total Bilirubin 2.2 H AST 33 ALT 32 Alkaline Phosphatase 148 H Creatine Kinase Troponin I Total Protein 7.3 Albumin 3.5 Lipase Urine Color Urine Appearance Urine pH Ur Specific [place] Urine Protein Urine Glucose (UA) Urine Ketones Urine Blood Urine Nitrite Urine Bilirubin Urine Urobilinogen Ur Leukocyte Esterase Urine WBC (Auto) Urine RBC (Auto) Urine Casts (Auto) U Epithel Cells (Auto) Urine Bacteria (Auto) Blood Type Antibody Screen 04/12/20 04/12/20 04/12/20 22:16 22:16 22:16 WBC RBC Hgb Hct MCV MCH MCHC RDW Plt Count MPV Absolute Neuts (auto) Neutrophils % Lymphocytes % Monocytes % Eosinophils % Basophils % Nucleated RBC % PT with INR INR PTT (Actin FS) Sodium Potassium Chloride Carbon Dioxide Anion Gap BUN Creatinine Est GFR (CKD-EPI)AfAm Est GFR (CKD-EPI)NonAf Random Glucose Lactic Acid 3.0 H* Calcium Phosphorus 4.0 Magnesium 1.9 Total Bilirubin AST ALT Alkaline Phosphatase Creatine Kinase 33 Troponin I < 0.02 Total Protein Albumin Lipase 83 Urine Color Urine Appearance Urine pH Ur Specific [place] Urine Protein Urine Glucose (UA) Urine Ketones Urine Blood Urine Nitrite Urine Bilirubin Urine Urobilinogen Ur Leukocyte Esterase Urine WBC (Auto) Urine RBC (Auto) Urine Casts (Auto) U Epithel Cells (Auto) Urine Bacteria (Auto) Blood Type A POSITIVE Antibody Screen Negative 04/13/20 04/13/20 04/13/20 04:02 10:05 10:05 WBC 11.6 H RBC 3.66 L Hgb 12.2 Hct 36.3 MCV 99.4 H MCH 33.4 MCHC 33.6 RDW 17.4 H Plt Count 165 MPV 7.5 Absolute Neuts (auto) Neutrophils % Lymphocytes % Monocytes % Eosinophils % Basophils % Nucleated RBC % PT with INR INR PTT (Actin FS) Sodium Potassium Chloride Carbon Dioxide Anion Gap BUN Creatinine Est GFR (CKD-EPI)AfAm Est GFR (CKD-EPI)NonAf Random Glucose Lactic Acid 2.1 H Calcium Phosphorus Magnesium Total Bilirubin AST ALT Alkaline Phosphatase Creatine Kinase Troponin I Total Protein Albumin Lipase Urine Color Yellow Urine Appearance Clear Urine pH 5.0 Ur Specific [place] 1.043 H Urine Protein Negative Urine Glucose (UA) Negative Urine Ketones Negative Urine Blood Negative Urine Nitrite Negative Urine Bilirubin Negative Urine Urobilinogen 0.2 Ur Leukocyte Esterase Trace Urine WBC (Auto) 3 Urine RBC (Auto) 5 Urine Casts (Auto) 1 U Epithel Cells (Auto) 2 Urine Bacteria (Auto) 6 Blood Type Antibody Screen 04/13/20 10:05 WBC RBC Hgb Hct MCV MCH MCHC RDW Plt Count MPV Absolute Neuts (auto) Neutrophils % Lymphocytes % Monocytes % Eosinophils % Basophils % Nucleated RBC % PT with INR INR PTT (Actin FS) Sodium 136 Potassium 4.0 Chloride 104 Carbon Dioxide 25 Anion Gap 7 L BUN 7.8 Creatinine 0.8 Est GFR (CKD-EPI)AfAm 131.34 Est GFR (CKD-EPI)NonAf 113.32 Random Glucose 117 H Lactic Acid Calcium 8.9 Phosphorus Magnesium Total Bilirubin 1.7 H AST 28 ALT 29 Alkaline Phosphatase 133 H Creatine Kinase Troponin I Total Protein 6.8 Albumin 3.2 L Lipase Urine Color Urine Appearance Urine pH Ur Specific [place] Urine Protein Urine Glucose (UA) Urine Ketones Urine Blood Urine Nitrite Urine Bilirubin Urine Urobilinogen Ur Leukocyte Esterase Urine WBC (Auto) Urine RBC (Auto) Urine Casts (Auto) U Epithel Cells (Auto) Urine Bacteria (Auto) Blood Type Antibody Screen Active Medications Generic Name Dose Route Start Last Admin Trade Name Freq PRN Reason Stop Dose Admin Apixaban 5 mg 04/13/20 10:00 04/13/20 10:35 Eliquis - PO 5 mg BID JIMMY Administration Folic Acid 1 mg 04/13/20 10:00 04/13/20 10:35 Folic Acid - PO 1 mg DAILY JIMMY Administration Metronidazole 500 mg in 100 mls @ 100 mls/hr 04/13/20 10:00 04/13/20 10:35 Flagyl 500mg Premixed Ivpb - IVPB 100 mls/hr Q8H-IV JIMMY Administration Lactobacillus Acidophilus 1 tab 04/13/20 12:07 Bacid - PO TIDAC JIMMY Metoprolol Succinate 25 mg 04/13/20 10:00 Toprol Xl - PO DAILY JIMMY Multivitamins/Minerals/Vitamin C 1 tab 04/14/20 10:00 Tab-A-Vit - PO DAILY JIMMY Sacubitril/Valsartan 1 tab 04/13/20 10:00 04/13/20 10:35 Entresto 24 Mg-26 Mg Tablet PO 1 tab BID JIMMY Administration Thiamine HCl 100 mg 04/14/20 10:00 Vitamin B1 - PO DAILY [facility] Vancomycin HCl 250 mg 04/13/20 08:37 04/13/20 13:02 Vancomycin Oral Solution PO 250 mg Q6HPO JIMMY Administration ASSESSMENT/PLAN: 39 Y M with PMH of recent C.diff, CHF (EF 10-15% on AICD), and AFib (on Eliquis), polysubstance abuse (alcohol, cocaine, heroin) presented with explosive watery diarrhea for 3 days, readmitted for recurrence of C. Diff after completing oral vanc course. #Acute/Recurrent C. Diff colitis - Afibrile, WBC count improved from 19.8 to 11.6 - Consulted ID, Dr. wu, recs appreciated - Continue with Flagyl IV and Oral Vanc #Hx of HFrEF (10-15%) s/p AICD - Continue Metoprolol, Entresto - Holding Torsemide and Spironolactone, due to fluid loss - will continue to monitor fluid volume status #Hx of Paroxymal AFib - Continue Eliquis - Continue Metoprolol #FEN - No standing fluids at this time, will encourage PO intake, will continue to monitor fluid/volume status - Continue to Monitoring Electrolytes - Clear liquid diet #DVT PPx - on Eliquis Visit type - Emergency Visit Emergency Visit: Yes ED Registration Date: 04/12/20 Care time: The patient presented to the Emergency Department on the above date and was hospitalized for further evaluation of their emergent condition. - New Patient This patient is new to me today: No - Critical Care Critical Care patient: No - Discharge Referral Referred to [facility] Med [facility] No ATTENDING PHYSICIAN STATEMENT I saw and evaluated the patient. I reviewed the resident's note and discussed the case with the resident. I agree with the resident's findings and plan as documented. SUBJECTIVE: OBJECTIVE: ASSESSMENT AND PLAN:
[2020-04-13] MEDS ORDERED: ACETAMINOPHEN 325 MG TABLET (FP) PO PRN (16:04)
[2020-04-13 16:12] VITALS: BMI 26.0
[2020-04-13] MEDS ORDERED: ACETAMINOPHEN 1000 MG/100 ML VIAL (NON FORMULARY) IVPB ONE (17:48)
[2020-04-13] MEDS ORDERED: PT OWN MED DRAWER 7, Y5N ONE (20:51)
[2020-04-14] MEDS: VANCOMYCIN 250 MG/5 ML ORAL SOLUTION PO SCH ×3 (06:06→17:51)
[2020-04-14] MEDS: LACTOBACILLUS ACIDOPHILUS 1 TABLET PO SCH ×3 (06:06→17:51)
[2020-04-14 08:06] LABS: BASO % 1.1 % (0-2.0); EOS % 2.4 % (0-4.5); HEMATOCRIT 37.7 % (35.4-49); HEMOGLOBIN 12.9 GM/dL (11.7-16.9); LYMPH % 15.9 % (8-40); MCHC 34.2 g/dl (32.0-35.9); MEAN CELL VOLUME 99.5 fl (80-96); MEAN PLT VOLUME 7.8 fl (7.5-11.1); MONO % 12.5 % (3.8-10.2); NEUT % 68.1 % (42.8-82.8); PLATELET COUNT 164 K/MM3 (134-434); RBC 3.79 M/mm3 (4.00-5.60); RDW 17.5 % (11.9-15.9); WHITE BLOOD COUNT 6.4 K/mm3 (4.0-10.0)
[2020-04-14 08:32] LABS: ALBUMIN 3.2 g/dl (3.4-5.0); BILIRUBIN,TOTAL 1.4 mg/dL (0.2-1); CALCIUM 9.3 mg/dL (8.5-10.1); CREATININE 0.6 mg/dL (0.55-1.3); PHOSPHOROUS 3.8 mg/dL (2.5-4.9); POTASSIUM 3.6 mmol/L (3.5-5.1); TOT PROT 6.9 g/dl (6.4-8.2)
[2020-04-14] MEDS: traMADol HCL 50 MG TABLET PO PRN ×2 (08:45→21:02)
[2020-04-14] MEDS ORDERED: PT OWN MED DRAWER 7, Y5N ONE ×2 (09:33→21:00)
[2020-04-14] MEDS: metoPROLOL SUCCINATE 25 MG TAB.SR.24H (FP) PO SCH (09:34)
[2020-04-14] MEDS: MULTIVITAMINS (DAILY MVI) TABLET (FP) PO SCH (09:34)
[2020-04-14] MEDS: SACUBITRIL/VALSARTAN 24 MG-26 MG TABLET PO SCH ×2 (09:34→21:04)
[2020-04-14] MEDS: FOLIC ACID 1 MG TABLET (FP) PO SCH (09:34)
[2020-04-14] MEDS: APIXABAN 5 MG TABLET PO SCH ×2 (09:34→21:02)
[2020-04-14] MEDS: THIAMINE HCL 100 MG TABLET (FP) PO SCH (09:34)
--- NOTE | 2020-04-14 15:42 | PN ---
Physical Exam: SUBJECTIVE: Patient seen and examined at bedside, reports that he is feeling better, with less abdominal pain. Had about 5-6 episodes of watery diarrhea overnight. No fevers/chills OBJECTIVE: Vital Signs Period Temp Pulse Resp BP Sys/Andrea Pulse Ox Last 24 Hr 97.5 F-99.2 F 52-87 18-18 105-124/63-76 90-100 GENERAL: AAOx3, in no acute distress HEENT: NCAT, PERRLA, EOMI, sclera anicteric, conjunctiva clear, oropharynx clear w/o exudates. MMM. NECK: Normal ROM, supple, no lymphadenopathy, JVD, or masses LUNGS: CTABL no wheezes/ rhonchi/ rales. No distress, speaks in full sentences. No increased work of breathing. HEART: RRR, normal S1 S2, no M/R/G, peripheral pulses 2+ and equal b/l ABDOMEN: Soft, Diffuse TTP, + BS. No guarding or rebound. No hepatomegaly or splenomegaly. MSK: ROM WNL, NO CVA tenderness EXTREMITIES: Normal inspection. No peripheral edema. No clubbing or cyanosis. NEUROLOGICAL: CN II-XII intact. Normal speech, gait not observed, no focal sensorimotor deficits. PSYCH: Normal mood, normal affect. SKIN: Warm, Dry, normal turgor, no rashes or lesions noted Laboratory Results - last 24 hr 04/12/20 04/14/20 04/14/20 06:23 06:44 06:44 WBC 6.4 RBC 3.79 L Hgb 12.9 Hct 37.7 MCV 99.5 H MCH 34.0 H MCHC 34.2 RDW 17.5 H Plt Count 164 MPV 7.8 Absolute Neuts (auto) 4.4 Neutrophils % 68.1 D Lymphocytes % 15.9 D Monocytes % 12.5 H D Eosinophils % 2.4 D Basophils % 1.1 Nucleated RBC % 0 Sodium 139 Potassium 3.6 Chloride 106 Carbon Dioxide 22 Anion Gap 11 BUN 4.0 L Creatinine 0.6 Est GFR (CKD-EPI)AfAm 147.82 Est GFR (CKD-EPI)NonAf 127.55 Random Glucose 98 Calcium 9.3 Phosphorus 3.8 Magnesium 2.0 Total Bilirubin 1.4 H AST 28 ALT 27 Alkaline Phosphatase 122 H Total Protein 6.9 Albumin 3.2 L COVID-19 (GAURAV) Not detected Active Medications Generic Name Dose Route Start Last Admin Trade Name Freq PRN Reason Stop Dose Admin Acetaminophen 650 mg 04/13/20 16:04 Tylenol - PO Q6H PRN Fever Or Pain Apixaban 5 mg 04/13/20 10:00 04/14/20 09:34 Eliquis - PO 5 mg BID JIMMY Administration Folic Acid 1 mg 04/13/20 10:00 04/14/20 09:34 Folic Acid - PO 1 mg DAILY JIMMY Administration Metronidazole 500 mg in 100 mls @ 100 mls/hr 04/13/20 10:00 04/14/20 09:34 Flagyl 500mg Premixed Ivpb - IVPB 100 mls/hr Q8H-IV JIMMY Administration Lactobacillus Acidophilus 1 tab 04/13/20 12:07 04/14/20 12:03 Bacid - PO 1 tab TIDAC JIMMY Administration Metoprolol Succinate 25 mg 04/13/20 10:00 04/14/20 09:34 Toprol Xl - PO 25 mg DAILY JIMMY Administration Multivitamins/Minerals/Vitamin C 1 tab 04/14/20 10:00 04/14/20 09:34 Tab-A-Vit - PO 1 tab DAILY JIMMY Administration Sacubitril/Valsartan 1 tab 04/13/20 10:00 04/14/20 09:34 Entresto 24 Mg-26 Mg Tablet PO 1 tab BID JIMMY Administration Thiamine HCl 100 mg 04/14/20 10:00 04/14/20 09:34 Vitamin B1 - PO 100 mg DAILY JIMMY Administration Tramadol HCl 50 mg 04/14/20 06:17 04/14/20 08:45 Ultram - PO 50 mg Q8H PRN Administration PAIN LEVEL 7 - 10 Vancomycin HCl 250 mg 04/13/20 08:37 04/14/20 12:04 Vancomycin Oral Solution PO 250 mg Q6HPO JIMMY Administration ASSESSMENT/PLAN: 39 Y M with PMH of recent C.diff, CHF (EF 10-15% on AICD), and AFib (on Eliquis), polysubstance abuse (alcohol, cocaine, heroin) presented with explosive watery diarrhea for 3 days, readmitted for recurrence of C. Diff after completing oral vanc course. #Acute/Recurrent C. Diff colitis - Afibrile, WBC count improved from 19.8 to 11.6 to 6.4, today - Consulted ID, Dr. wu, recs appreciated - Continue with Flagyl IV and Oral Vanc - GI consulted, pending recs #Hx of HFrEF (10-15%) s/p AICD - Continue Metoprolol, Entresto - Holding Torsemide and Spironolactone, due to fluid loss - will continue to monitor fluid volume status #Hx of Paroxymal AFib - Continue Eliquis - Continue Metoprolol #FEN - No standing fluids at this time, will encourage PO intake, will continue to monitor fluid/volume status - Continue to Monitoring Electrolytes - Clear liquid diet #DVT PPx - on Eliquis Visit type - Emergency Visit Emergency Visit: Yes ED Registration Date: 04/12/20 Care time: The patient presented to the Emergency Department on the above date and was hospitalized for further evaluation of their emergent condition. - New Patient This patient is new to me today: No - Critical Care Critical Care patient: No - Discharge Referral Referred to [facility] Med [facility].C.: No ATTENDING PHYSICIAN STATEMENT I saw and evaluated the patient. I reviewed the resident's note and discussed the case with the resident. I agree with the resident's findings and plan as documented. SUBJECTIVE: OBJECTIVE: ASSESSMENT AND PLAN:
--- NOTE | 2020-04-14 16:21 | PN ---
Teaching Attending Note Name of Resident: Mehran Barnhart ATTENDING PHYSICIAN STATEMENT I saw and evaluated the patient. I reviewed the resident's note and discussed the case with the resident. I agree with the resident's findings and plan as documented. SUBJECTIVE: Reports ongoing loose watery stool. No melena/hematochezia. Some abdominal pain, no nausea/vomiting. No fever/chills. OBJECTIVE: Afebrile, Hemodynamically stable. Last Vital Signs Temp Pulse Resp BP Pulse Ox 98.6 F 73 18 113/75 99 04/14/20 14:00 04/14/20 14:00 04/14/20 14:00 04/14/20 14:00 04/14/20 14:00 Heart - S1, S2, RRR Lungs - clear to auscultation Abdomen - Soft, mild generalized tenderness. Bowel Sounds normal. Extremities - no edema, no calf tenderness. Neuro - AAO x 3. Tone/Power normal. Laboratory Results - last 24 hr 04/12/20 04/14/20 04/14/20 06:23 06:44 06:44 WBC 6.4 RBC 3.79 L Hgb 12.9 Hct 37.7 MCV 99.5 H MCH 34.0 H MCHC 34.2 RDW 17.5 H Plt Count 164 MPV 7.8 Absolute Neuts (auto) 4.4 Neutrophils % 68.1 D Lymphocytes % 15.9 D Monocytes % 12.5 H D Eosinophils % 2.4 D Basophils % 1.1 Nucleated RBC % 0 Sodium 139 Potassium 3.6 Chloride 106 Carbon Dioxide 22 Anion Gap 11 BUN 4.0 L Creatinine 0.6 Est GFR (CKD-EPI)AfAm 147.82 Est GFR (CKD-EPI)NonAf 127.55 Random Glucose 98 Calcium 9.3 Phosphorus 3.8 Magnesium 2.0 Total Bilirubin 1.4 H AST 28 ALT 27 Alkaline Phosphatase 122 H Total Protein 6.9 Albumin 3.2 L COVID-19 (GAURAV) Not detected Current Medications Generic Name Dose Route Start Last Admin Trade Name Freq PRN Reason Stop Dose Admin Acetaminophen 650 mg 04/13/20 16:04 Tylenol - PO Q6H PRN Fever Or Pain Apixaban 5 mg 04/13/20 10:00 04/14/20 09:34 Eliquis - PO 5 mg BID JIMMY Administration Folic Acid 1 mg 04/13/20 10:00 04/14/20 09:34 Folic Acid - PO 1 mg DAILY JIMMY Administration Metronidazole 500 mg in 100 mls @ 100 mls/hr 04/13/20 10:00 04/14/20 09:34 Flagyl 500mg Premixed Ivpb - IVPB 100 mls/hr Q8H-IV JIMMY Administration Lactobacillus Acidophilus 1 tab 04/13/20 12:07 04/14/20 12:03 Bacid - PO 1 tab TIDAC JIMMY Administration Metoprolol Succinate 25 mg 04/13/20 10:00 04/14/20 09:34 Toprol Xl - PO 25 mg DAILY JIMMY Administration Multivitamins/Minerals/Vitamin C 1 tab 04/14/20 10:00 04/14/20 09:34 Tab-A-Vit - PO 1 tab DAILY JIMMY Administration Sacubitril/Valsartan 1 tab 04/13/20 10:00 04/14/20 09:34 Entresto 24 Mg-26 Mg Tablet PO 1 tab BID JIMMY Administration Thiamine HCl 100 mg 04/14/20 10:00 04/14/20 09:34 Vitamin B1 - PO 100 mg DAILY JIMMY Administration Tramadol HCl 50 mg 04/14/20 06:17 04/14/20 08:45 Ultram - PO 50 mg Q8H PRN Administration PAIN LEVEL 7 - 10 Vancomycin HCl 250 mg 04/13/20 08:37 04/14/20 12:04 Vancomycin Oral Solution PO 250 mg Q6HPO JIMMY Administration Home Medications Medication Instructions Recorded Apixaban [Eliquis] 5 mg PO BID 03/29/20 Folic Acid 1 mg PO DAILY 03/29/20 Metoprolol Succinate [Toprol Xl] 25 mg PO DAILY 03/29/20 Multivitamin [Poly-Vitamin] 1 tab PO DAILY 03/29/20 Sacubitril/Valsartan [Entresto 24 1 tab PO BID 03/29/20 mg-26 mg Tablet] Spironolactone 25 mg PO DAILY 03/29/20 Thiamine Mononitrate (Vit B1) 3 tab PO DAILY 03/29/20 [Cyto B-1] Torsemide [Demadex -] 20 mg PO DAILY 03/29/20 Magnesium Oxide 400 mg PO BID 04/13/20 ASSESSMENT AND PLAN: 39 year old male with history of prior Polysubstance Abuse (Alcohol, cocaine, heroin), Anxiety, Non-ischemic Cardiomyopathy (EF 10-15%) s/p AICD, Atrial fibrillation (on Eliquis), recent admission with Cdiff, re-admitted for recurrence after completing oral Vancomycin course. CT A/P - Hepatosplenomegaly, diffuse Colitis 1. Acute/Recurrent Cdiff Colitis Leukocytosis resolved Resumed on PO Vanco, IV Flagyl added ID following - recommend GI evaluation. Afebrile, Hemodynamicaly stable. Tramadol prn for discomfort. 2. Chronic Systolic CHF - Non-ischemic Cardiomyopathy (EF 10-15%) s/p AICD (s/p episode of VT/Torsades psot-op) - stable. Continue Metoprolol, Entresto. Torsemide, Spironolactone held due to fluid losses. Will monitor fluid status. 3. Paroxysmal Atrial Fibrillation - continue Metoprolol and Eliquis. 4. Hx Substance abuse - reports remote history of alcohol, cocaine, heroin. No withdrawal symptoms. Will continue MVI, Thiamine, Folic Acid. DVT Px - on Eliquis.
--- NOTE | 2020-04-14 16:43 | CON.GI ---
Consult Consult Specialty:: GIq Referred by:: Hospitalist Service Reason for Consultation:: Diarrhea - History of Present Illness Chief Complaint: Diarrhea History of Present Illness: 39M admitted for evaluation of diarrhea. Admitted 02/21 for evaluation of progressive SOB and ATKINS. Was drinking 2 large bottles of wine daily and has been drinking like this at least for 5 years, sometimes more if there is a libertarian. Denies IVDU. has noticed increasing abdominal girth over the last few weeks. No family history of liver disease. Continued SOB. Abd US was limited but failed to reveal dilated biliary tract, hepatomegaly, fatty liver and question of mild GB wall thickening. That is the only abdominal imaging as of yet. No baseline LFTs to compare. Echo revealed severely reduced EF 10-15% at that time. Subsequently admitted to [facility] for 1 month, had defibirilator placed. Readmitted to [facility] 03/29 to 03/31 for evaluation of diarrhea. d/thea on po vancomycin for one week which he completed- was having soft stools twice a day diarrhea has markedlly worsened over last 2-3 days. non bloody, multiple [id number] scan reveals diffuse colitis. No travel, no sick contacts. Admitted 2 days ago. Noted leukocytosis at that time. GI called today for evaluation. Has been evaluated by ID. Currently on PO vanco and IV Flagyl. minimal improvement in diarrhea. + abdominal cramping. No family history of IBD. - History Source History Provided By: Patient - Past Medical History Cardio/Vascular: Yes: AFIB, CHF (Dilated cardiomyopathy with severe LV systolic dysfunction), HTN, Other (Torsades, VT s/p ICD) Psych: Yes: Addictions (Alcohol) - Past Surgical History Past Surgical History: Yes: AICD - Alcohol/Substance Use Hx Alcohol Use: Yes (2 bottles of wine per day with his (past 5 years). Now once per week) History of Substance Use: reports: None - Smoking History Smoking history: Never smoked Have you smoked in the past 12 months: No Aproximately how many cigarettes per day: 0 - Social History Usual Living Arrangement: With Spouse ADL: Independent Place of : [place] History of Recent Travel: No Home Medications - Allergies Allergies/Adverse Reactions: Allergies Allergy/AdvReac Type Severity Reaction Status Date / Time No Known Allergies Allergy Verified 03/28/20 18:53 - Home Medications Home Medications: Ambulatory Orders Apixaban [Eliquis] 5 mg PO BID 03/29/20 Folic Acid 1 mg PO DAILY 03/29/20 Metoprolol Succinate [Toprol Xl] 25 mg PO DAILY 03/29/20 Multivitamin [Poly-Vitamin] 1 tab PO DAILY 03/29/20 Sacubitril/Valsartan [Entresto 24 mg-26 mg Tablet] 1 tab PO BID 03/29/20 Spironolactone 25 mg PO DAILY 03/29/20 Thiamine Mononitrate (Vit B1) [Cyto B-1] 3 tab PO DAILY 03/29/20 Torsemide [Demadex -] 20 mg PO DAILY 03/29/20 Magnesium Oxide 400 mg PO BID 04/13/20 Family Medical History Family Hx Cancer: Mother (BCA) Family Hx Coronary Artery Disease: Father Other Family History: No family history of colorectal cancer or other GI mlaignancy, IBD Review of Systems - Review of Systems Constitutional: denies: Chills Gastrointestinal: reports: Abdominal Pain, Bloating, Diarrhea. denies: Rectal Bleeding, Vomiting, Vomiting Blood Physical Exam-GI Vital Signs: Vital Signs Temperature 98.6 F 04/14/20 14:00 Pulse Rate 73 04/14/20 14:00 Respiratory Rate 18 04/14/20 14:00 Blood Pressure 113/75 04/14/20 14:00 O2 Sat by Pulse Oximetry (%) 99 04/14/20 14:00 Constitutional: Yes: Calm Eyes: No: Sclera Icterus Cardiovascular: Yes: Regular Rate and Rhythm Respiratory: Yes: CTA Bilaterally Gastrointestinal Inspection: No: Distention ...Auscultate: Yes: Normoactive Bowel Sounds ...Palpate: Yes: Tenderness (Mild TTP left and mid abdomen) ...Percussion: No: Tympanitic Edema: No (No LE edema) Neurological: Yes: Alert Labs: CBC, BMP 04/14/20 06:44 04/14/20 06:44 INR, PTT INR 1.53 (0.83-1.09) H 04/12/20 22:16 Imaging - Results Cat Scan: Report Reviewed, Image Reviewed Problem List - Problems (1) Recurrent Clostridioides difficile diarrhea Assessment/Plan: Too early to consider recurrence. Likely relapse of existing C. Diff infection On PO Vanco 250mg PO Q6H On IV flagyl If improvement, would advise completing 14 day course of Vanco 250mg PO Q6H followed by a slow taper: Ex: 250mg PO Q8H for 1 week 250mg PO BID for 1 week 250mg PO Daily for 1 week 250mg PO every other day 250mg PO TIW for 1 week Stop Avoid PPI Low fiber/Lactose free diet Avoid antibiotics as feasible If continued episoides of C. Diff recurrence or relapse, should be evaluated at an institution that can evaluate for candidacy for fecal transplantation such as [facility] Code(s): A04.71 - ENTEROCOLITIS DUE TO CLOSTRIDIUM DIFFICILE, RECURRENT
[2020-04-15] MEDS: VANCOMYCIN 250 MG/5 ML ORAL SOLUTION PO SCH ×3 (01:22→11:55)
[2020-04-15] MEDS: LACTOBACILLUS ACIDOPHILUS 1 TABLET PO SCH ×2 (06:13→11:55)
[2020-04-15] MEDS ORDERED: PT OWN MED DRAWER 7, Y5N ONE (09:20)
[2020-04-15] MEDS: SACUBITRIL/VALSARTAN 24 MG-26 MG TABLET PO SCH (09:25)
[2020-04-15] MEDS: MULTIVITAMINS (DAILY MVI) TABLET (FP) PO SCH (09:26)
[2020-04-15] MEDS: metoPROLOL SUCCINATE 25 MG TAB.SR.24H (FP) PO SCH (09:26)
[2020-04-15] MEDS: THIAMINE HCL 100 MG TABLET (FP) PO SCH (09:26)
[2020-04-15] MEDS: FOLIC ACID 1 MG TABLET (FP) PO SCH (09:26)
[2020-04-15] MEDS: APIXABAN 5 MG TABLET PO SCH (09:26)
[2020-04-15] MEDS: traMADol HCL 50 MG TABLET PO PRN (09:27)
[2020-04-15 09:40] LABS: EOS % 4.8 % (0-4.5); HEMATOCRIT 35.9 % (35.4-49); HEMOGLOBIN 12.4 GM/dL (11.7-16.9); LYMPH % 23.7 % (8-40); MCH 34.4 pg (25.7-33.7); MCHC 34.6 g/dl (32.0-35.9); MEAN CELL VOLUME 99.4 fl (80-96); MEAN PLT VOLUME 7.5 fl (7.5-11.1); MONO % 15.5 % (3.8-10.2); PLATELET COUNT 174 K/MM3 (134-434); RBC 3.61 M/mm3 (4.00-5.60); RDW 17.1 % (11.9-15.9); WHITE BLOOD COUNT 4.6 K/mm3 (4.0-10.0)
[2020-04-15 10:08] LABS: ALBUMIN 3.4 g/dl (3.4-5.0); BILIRUBIN,TOTAL 1.6 mg/dL (0.2-1); BLOOD UREA NITROGEN 6.8 mg/dL (7-18); CALCIUM 9.4 mg/dL (8.5-10.1); CREATININE 0.8 mg/dL (0.55-1.3); MAGNESIUM 1.8 mg/dL (1.8-2.4); POTASSIUM 3.7 mmol/L (3.5-5.1)
--- NOTE | 2020-04-15 14:13 | PN ---
Progress Note (short form) - Note Progress Note: feels well soft stools now no abdominal pain Vital Signs Period Temp Pulse Resp BP Sys/Andrea Pulse Ox Last 24 Hr 97.7 F-98.8 F 57-82 18-20 101-111/45-66 95-97 cor-rrr lungs clear, well healed scar left chest abd soft, nontender ext no edema CBC, BMP 04/15/20 08:55 04/15/20 08:55 Microbiology 04/12/20 08:57 Stool Salmonella/Shigella Culture - Final 04/12/20 08:57 Stool Campylobacter Culture - Final NO GROWTH OF CAMPYLOBACTER SPECIES OBTAINED 04/12/20 08:57 Stool Yersinia Culture - Final NO GROWTH OF YERSINIA SPECIES OBTAINED 04/12/20 08:57 Stool Vibrio Culture - Final NO GROWTH OF VIBRIO SPECIES OBTAINED 04/12/20 08:57 Stool Escherichia coli 0157 Culture - Final 04/13/20 04:02 Urine - Urine Clean Catch Urine Culture - Final NO GROWTH OBTAINED 04/13/20 04:02 Stool Clostridioides difficile Antigen - Final 04/13/20 04:02 Stool Clostridioides difficile Toxin Assay - Final ct scan with colitis a/p recurrent cdiff- doing well, to complete 14 days of vonco po qid then taper as outlined by GI can d/c flagyl history of dilated cardiomyopathy with ICD Problem List - Problems (1) Recurrent Clostridioides difficile diarrhea Code(s): A04.71 - ENTEROCOLITIS DUE TO CLOSTRIDIUM DIFFICILE, RECURRENT (2) Cardiomyopathy Code(s): I42.9 - CARDIOMYOPATHY, UNSPECIFIED (3) Presence of implantable cardioverter-defibrillator (ICD) Code(s): Z95.810 - PRESENCE OF AUTOMATIC (IMPLANTABLE) CARDIAC DEFIBRILLATOR
--- NOTE | 2020-04-15 15:18 | DS ---
Physical Exam: SUBJECTIVE: Patient seen and examined OBJECTIVE: Vital Signs Period Temp Pulse Resp BP Sys/Andrea Pulse Ox Last 24 Hr 97.7 F-98.8 F 57-82 18-20 101-111/45-66 95-97 PHYSICAL EXAM GENERAL: The patient is awake, alert, and fully oriented, in no acute distress. HEAD: Normal with no signs of trauma. EYES: PERRL, extraocular movements intact, sclera anicteric, conjunctiva clear. ENT: Ears normal, nares patent, oropharynx clear without exudates, moist mucous membranes. NECK: Trachea midline, full range of motion, supple. LUNGS: Breath sounds equal, clear to auscultation bilaterally, no wheezes, no crackles, no accessory muscle use. HEART: Regular rate and rhythm, S1, S2 without murmur, rub or gallop. ABDOMEN: Soft, nontender, nondistended, normoactive bowel sounds, no guarding, no rebound, no hepatosplenomegaly, no masses. EXTREMITIES: 2+ pulses, warm, well-perfused, no edema. NEUROLOGICAL: Cranial nerves II through XII grossly intact. Normal speech, gait not observed. PSYCH: Normal mood, normal affect. SKIN: Warm, dry, normal turgor, no rashes or lesions noted. LABS Laboratory Results - last 24 hr 04/15/20 04/15/20 08:55 08:55 WBC 4.6 RBC 3.61 L Hgb 12.4 Hct 35.9 MCV 99.4 H MCH 34.4 H MCHC 34.6 RDW 17.1 H Plt Count 174 MPV 7.5 Absolute Neuts (auto) 2.5 Neutrophils % 55.0 Lymphocytes % 23.7 D Monocytes % 15.5 H Eosinophils % 4.8 H D Basophils % 1.0 Nucleated RBC % 0 Sodium 136 Potassium 3.7 Chloride 103 Carbon Dioxide 24 Anion Gap 10 BUN 6.8 L Creatinine 0.8 Est GFR (CKD-EPI)AfAm 131.34 Est GFR (CKD-EPI)NonAf 113.32 Random Glucose 121 H Calcium 9.4 Phosphorus 5.0 H Magnesium 1.8 Total Bilirubin 1.6 H AST 25 ALT 23 Alkaline Phosphatase 123 H Total Protein 7.0 Albumin 3.4 HOSPITAL COURSE: Date of Admission:04/12/20 39 year old male with history of prior Polysubstance Abuse (Alcohol, cocaine, heroin), Anxiety, Non-ischemic Cardiomyopathy (EF 10-15%) s/p AICD, Atrial fibrillation (on Eliquis), recent admission with Cdiff, re-admitted for recurrence after completing oral Vancomycin course. CT abdomen pelvis revealed evidence of Hepatosplenomegaly and diffuse Colitis. Leukocytosis resolved over the hospital course. He was treated with PO Vanco and IV Flagyl. Patient reported improvement of his abdominal pain and watery diarrhea improved to soft/loose bowel movements with decreased episodes. Patient was stable for discharged and he was discharged with prescription and instructions for Oral Vanco kenan and referrals for f/u visits with GI for colitis and Cardio for low BP. Date of Discharge: 04/15/20 Minutes to complete discharge: 36 Discharge Summary Problems reviewed: Yes Reason For Visit: COLITIS DUE TO CLOSTRIDIOIDES DIFFICILE Current Active Problems Diarrhea of presumed infectious origin (Acute) Recurrent Clostridioides difficile diarrhea (Acute) Condition: Improved - Instructions Diet, Activity, Other Instructions: YOUR VISIT: You were admitted to the hospital for treatment of infection of your stomach. You were treated with antibiotics. MEDICATIONS: Please START taking Vancomycin 250mg. instructions as follows: Take Vanco 250mg PO four times a day, every 6 hours, for 11 more days Then followed by a slow taper of: take 250mg three times a day for the first week take 250mg twice a day for the second week take 250mg daily for the third week take 250mg every other day for the forth week take 250mg once on Saturday and 250mg once Saturday on the last week. Please DO NOT Take your Torsemide 20 mg, until you see Dr. Larson within 1 week. Your Blood pressure is low. Do NOT take ant medications for heartburn, specially PPIs. Continue to take all other home medications as prescribed FOLLOW UPS: Please follow up with your GI, Dr. London, within 1 week for evaluation of your recurrent infection and hospital course Please follow up with your Sports Administrator, Dr. Larson, within 1 week for medication adjustments, your blood pressure is low, Please call his office to make an appointment JACQUES. Please visit your primary care provider within 2 weeks to follow up with your labwork and hospital visit. ADDITIONAL INSTRUCTIONS: You are being discharged to your home. Please return to the Emergency department if you are experiencing worsening or concerning symptoms. Please eat a Low fiber/Lactose free diet Referrals: José London DO [Staff Physician] - 1 Week (C.diff) Ashwin Larson MD [Staff Physician] - 1 Week (Low blood pressure) Disposition: HOME - Home Medications Comprehensive Discharge Medication List: Ambulatory Orders Apixaban [Eliquis] 5 mg PO BID 03/29/20 Folic Acid 1 mg PO DAILY 03/29/20 Metoprolol Succinate [Toprol Xl] 25 mg PO DAILY 03/29/20 Multivitamin [Poly-Vitamin] 1 tab PO DAILY 03/29/20 Sacubitril/Valsartan [Entresto 24 mg-26 mg Tablet] 1 tab PO BID 03/29/20 Spironolactone 25 mg PO DAILY 03/29/20 Thiamine Mononitrate (Vit B1) [Cyto B-1] 3 tab PO DAILY 03/29/20 Magnesium Oxide 400 mg PO BID 04/13/20 Lactobacillus Acidophilus [Bacid -] 1 tab PO TIDAC #90 tab 04/15/20 Vancomycin Oral Solution 250 mg PO Q6HPO #465 ml 04/15/20 This patient is new to me today: Yes Date on this admission: 04/17/20 Emergency Visit: No Critical Care patient: No - Discharge Referral Referred to [facility] Med [facility].C[facility] No ATTENDING PHYSICIAN STATEMENT I saw and evaluated the patient. I reviewed the resident's note and discussed the case with the resident. I agree with the resident's findings and plan as documented. SUBJECTIVE: OBJECTIVE: ASSESSMENT AND PLAN:
[2020-04-15 15:56] VITALS: BP 109/65; PULSE 76; TEMP 97.7
--- NOTE | 2020-04-15 16:42 | PN ---
Teaching Attending Note Name of Resident: Mehran Barnhart ATTENDING PHYSICIAN STATEMENT I saw and evaluated the patient. I reviewed the resident's note and discussed the case with the resident. I agree with the resident's findings and plan as documented. SUBJECTIVE: Reports improvement in diarrhea. No melena/hematochezia. Some ongoing abdominal pain, no nausea/vomiting. No fever/chills. OBJECTIVE: Afebrile, Hemodynamically stable. Last Vital Signs Temp Pulse Resp BP Pulse Ox 97.7 F 76 18 109/65 98 04/15/20 15:00 04/15/20 15:00 04/15/20 15:00 04/15/20 15:00 04/15/20 15:00 Heart - S1, S2, RRR Lungs - clear to auscultation Abdomen - Soft, mild generalized tenderness. Bowel Sounds normal. Extremities - no edema, no calf tenderness. Neuro - AAO x 3. Tone/Power normal. Laboratory Results - last 24 hr 04/15/20 04/15/20 08:55 08:55 WBC 4.6 RBC 3.61 L Hgb 12.4 Hct 35.9 MCV 99.4 H MCH 34.4 H MCHC 34.6 RDW 17.1 H Plt Count 174 MPV 7.5 Absolute Neuts (auto) 2.5 Neutrophils % 55.0 Lymphocytes % 23.7 D Monocytes % 15.5 H Eosinophils % 4.8 H D Basophils % 1.0 Nucleated RBC % 0 Sodium 136 Potassium 3.7 Chloride 103 Carbon Dioxide 24 Anion Gap 10 BUN 6.8 L Creatinine 0.8 Est GFR (CKD-EPI)AfAm 131.34 Est GFR (CKD-EPI)NonAf 113.32 Random Glucose 121 H Calcium 9.4 Phosphorus 5.0 H Magnesium 1.8 Total Bilirubin 1.6 H AST 25 ALT 23 Alkaline Phosphatase 123 H Total Protein 7.0 Albumin 3.4 Discharge Medications Medication Instructions Recorded Apixaban [Eliquis] 5 mg PO BID 03/29/20 Folic Acid 1 mg PO DAILY 03/29/20 Metoprolol Succinate [Toprol Xl] 25 mg PO DAILY 03/29/20 Multivitamin [Poly-Vitamin] 1 tab PO DAILY 03/29/20 Sacubitril/Valsartan [Entresto 24 1 tab PO BID 03/29/20 mg-26 mg Tablet] Spironolactone 25 mg PO DAILY 03/29/20 Thiamine Mononitrate (Vit B1) 3 tab PO DAILY 03/29/20 [Cyto B-1] Magnesium Oxide 400 mg PO BID 04/13/20 Lactobacillus Acidophilus [Bacid -] 1 tab PO TIDAC #90 tab 04/15/20 Vancomycin Oral Solution 250 mg PO Q6HPO #465 ml 04/15/20 ASSESSMENT AND PLAN: 39 year old male with history of prior Polysubstance Abuse (Alcohol, cocaine, heroin), Anxiety, Non-ischemic Cardiomyopathy (EF 10-15%) s/p AICD, Atrial fibrillation (on Eliquis), recent admission with Cdiff, re-admitted for recurrence after completing oral Vancomycin course. CT A/P - Hepatosplenomegaly, diffuse Colitis 1. Acute/Recurrent Cdiff Colitis Leukocytosis resolved Improving with PO Vanco, IV Flagyl Evaluated by GI - recommends extended course of Vancomycin taper, Low fiber/Lactose free diet, with referral to [facility] for eval for fecal transplant if any recurrence after current slow taper. Afebrile, Hemodynamicaly stable. Medically stable for transplant. 2. Chronic Systolic CHF - Non-ischemic Cardiomyopathy (EF 10-15%) s/p AICD (s/p episode of VT/Torsades psot-op) - stable. Continue Metoprolol, Entresto. Will resume Spironolactone on discharge. Advised to hold Torsemide for now until resolution of diarrhea and Cardiology follow up as out-patient. Discussed with Dr. Larson. 3. Paroxysmal Atrial Fibrillation - continue Metoprolol and Eliquis. 4. Hx Substance abuse - reports remote history of alcohol, cocaine, heroin. No withdrawal symptoms. Will continue MVI, Thiamine, Folic Acid. Medically Stable for discharge with GI and Cardio follow up.
== END 2020-04-15 16:35 | disposition home or self-care (01) | DRG 248 ==
LOC: JER 20:20 → JERBED 22:06 → J8W 04-13 15:37
PROVIDERS: ADMIT Hospitalist
DX: A04.71 Enterocolitis due to Clostridium difficile, recurrent (principal); I42.8 Other cardiomyopathies; K56.7 Ileus, unspecified; I48.0 Paroxysmal atrial fibrillation; I50.22 Chronic systolic (congestive) heart failure; R16.2 Hepatomegaly with splenomegaly, not elsewhere classified; Z79.01 Long term (current) use of anticoagulants; Z95.810 Presence of automatic (implantable) cardiac defibrillator; E86.0 Dehydration; F41.9 Anxiety disorder, unspecified
CPT/HCPCS: 36415; 74177-TC; 80053; 81003; 82550; 83605; 83690; 83735; 84100; 84484; 85025; 85027; 85610; 85730; 86850; 86900; 86901; 87045; 87046; 87086; 87186; 87324; 87449; 93005; 93010; 99285-25; J0131; J1644; U0003

== ENCOUNTER 2020-05-17 02:29 | Inpatient (IN) | payer OTHER ==
[2020-05-17 02:51] VITALS: BMI 25.1
--- OUTSIDE RECORDS SUMMARY | 2020-05-17 02:52 | XMS ---
:1980 Author Organization [facility] Support Name Relationship Address Phone UE, UNEMPLOYED Unavailable Unavailable Unavailable UE Unavailable Unavailable Unavailable EMILIA MENA [address] [place] [address] Re-disclosure Warning The records that you are about to access may contain information from federally- assisted alcohol or drug abuse programs. If such information is present, then the following federally mandated warning applies: This information has been disclosed to you from records protected by federal confidentiality rules (42 CFR part 2). The federal rules prohibit you from making any further disclosure of this information unless further disclosure is expressly permitted by the written consent of the person to whom it pertains or as otherwise permitted by 42 CFR part 2. A general authorization for the release of medical or other information is NOT sufficient for this purpose. The Federal rules restrict any use of the information to criminally investigate or prosecute any alcohol or drug abuse patient.The records that you are about to access may contain highly sensitive health information, the redisclosure of which is protected by Article 27-F of the [facility] Public Health law. If you continue you may haveaccess to information: Regarding HIV / AIDS; Provided by facilities licensed or operated by the [facility] Office of Mental Health; or Provided by the [facility] Office for People With Developmental Disabilities. If such information is present, then the following [facility] mandated warning applies: This information has been disclosed to you from confidential records which are protected by state law. State law prohibits you from making any further disclosure of this information without the specific written consent of the person to whom it pertains, or as otherwise permitted by law. Any unauthorized further disclosure in violation of state law may result in a fine or skilled nursing sentence or both. A general authorization for the release of medical or other information is NOT sufficient authorization for further disclosure. Insurance Providers Payer name Policy type Policy ID Covered Covered constitution party's Policy P benja / Coverage constitution party ID relationship to Cerda Inf ormation type cerda [employer] [id number] SP [id number] F MEDICAID [id number] SP [id number] PENDING SP EXCHANGE SELF PAY SP INSURANCE Results ID Date Data Source [id number] 04/12/2020 06:23:00 AM EDT [facility] Name Value Range Interpretation Description Data Sup porting Code Source(s) Document(s ) SARS [facility] coronavirus 2 RNA This lab was ordered by [facility] and reported by [facility]. ID Date Data Source [id number] 03/29/2020 06:40:00 AM EDT [facility] Name Value Range Interpretation Description Data Sup porting Code Source(s) Document(s ) SARS [facility] coronavirus 2 RNA This lab was ordered by [facility] and reported by [facility]. ID Date Data Source [id number] 03/07/2020 11:29:00 PM EDT [facility] Name Value Range Interpretation Code Description Data Arcelia rce(s) Supporting Document(s ) SARS-CoV-2 [facility] RNA [facility] Ql GAURAV+probe This lab was ordered by [facility] nd reported by [facility]. ID Date Data Source [id number] 03/01/2020 12:46:00 AM EDT [facility] Name Value Range Interpretation Description Data Sup porting Code Source(s) Document(s ) SARS [facility] coronavirus 2 RNA This lab was ordered by [facility] and reported by [facility]. ID Date Data Source [id number] 02/12/2020 12:00:00 AM EDT [facility] Name Value Range Interpretation Code Description Data Arcelia rce(s) Supporting Document(s ) 2019-nCoV [facility] RNA XXX GAURAV+probe- Imp This lab was ordered by [facility] and reported by [facility] [facility]. Procedure
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
[2020-05-17] MEDS ORDERED: diazePAM CARPU-JECT 10 MG/2 ML DISP.SYRIN IVPUSH ONE (03:07)
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
[2020-05-17] MEDS ORDERED: diazePAM CARPU-JECT 10 MG/2 ML DISP.SYRIN ONE (03:38)
[2020-05-17 03:56] LABS: EOS % 0.3 % (0-4.5); HEMATOCRIT 37.3 % (35.4-49); HEMOGLOBIN 13.3 GM/dL (11.7-16.9); LYMPH % 30.5 % (8-40); MCH 32.9 pg (25.7-33.7); MCHC 35.5 g/dl (32.0-35.9); MEAN CELL VOLUME 92.7 fl (80-96); NEUT % 61.2 % (42.8-82.8); PLATELET COUNT 112 K/MM3 (134-434); RBC 4.03 M/mm3 (4.00-5.60); RDW 14.8 % (11.9-15.9); WHITE BLOOD COUNT 6.9 K/mm3 (4.0-10.0)
[2020-05-17 04:40] LABS: ALBUMIN 3.5 g/dl (3.4-5.0); ALK PHOS 359 U/L (45-117); ANION GAP 6 MMOL/L (8-16); BLOOD UREA NITROGEN 19.8 mg/dL (7-18); CALCIUM 8.7 mg/dL (8.5-10.1); CHLORIDE 104 mmol/L (98-107); CO2 29 mmol/L (21-32); CREATININE 0.8 mg/dL (0.55-1.3); GLUCOSE,RANDOM 117 mg/dL (74-106); POTASSIUM 4.7 mmol/L (3.5-5.1); SGOT/AST 324 U/L (15-37); SGPT/ALT 146 U/L (13-61); SODIUM 139 mmol/L (136-145)
--- OUTSIDE RECORDS SUMMARY | 2020-05-17 05:43 | XMS ---
:1980 [facility] Support Name Relationship Address Phone UE, UNEMPLOYED Unavailable Unavailable Unavailable UE Unavailable Unavailable Unavailable EMILIA MENA [address] [facility] [place] [address] Re-disclosure Warning The records that you are [...] is protected by Article 27-F of the [facility] Public Health law. If you continue you may haveaccess to information: Regarding HIV / AIDS; Provided by facilities licensed or operated by the [facility] Office of Mental Health; or Provided by the [facility] Office for People With Developmental Disabilities. If such information is present, then the following [facility] mandated warning applies: This information has [...] law may result in a fine or detention sentence or both. A general authorization for the release of medical or other information is NOT sufficient authorization for further disclosure. Insurance Providers Payer name Policy type Policy ID Covered Covered democrat's Policy P benja / Coverage democrat ID relationship to Cerda Inf ormation type cerda [employer] [id number] SP [id number] F MEDICAID [id number] SP [id number] PENDING SP EXCHANGE SELF PAY SP INSURANCE Results ID Date Data Source [id number] 04/12/2020 06:23:00 AM EDT [facility] Name Value Range Interpretation Description Data Sup porting Code Source(s) Document(s ) SARS [facility] coronavirus 2 RNA This lab was ordered by [facility] and reported by [facility]. ID Date Data Source [id number] 03/29/2020 06:40:00 AM EDT [facility] Name Value Range Interpretation Description Data Sup porting Code Source(s) Document(s ) SARS [facility] coronavirus 2 RNA This lab was ordered by [facility] and reported by [facility]. ID Date Data Source [id number] 03/07/2020 11:29:00 PM EDT [facility] Name Value Range Interpretation Code Description Data Arcelia rce(s) Supporting Document(s ) SARS-CoV-2 [facility] RNA [facility] Ql GAURAV+probe This lab was ordered by [facility] nd reported by [facility]. ID Date Data Source [id number] 03/01/2020 12:46:00 AM EDT [facility] Name Value Range Interpretation Description Data Sup porting Code Source(s) Document(s ) SARS [facility] coronavirus 2 RNA This lab was ordered by [facility] and reported by [facility]. ID Date Data Source [id number] 02/12/2020 12:00:00 AM EDT [facility] Name Value Range Interpretation Code Description Data Arcelia rce(s) Supporting Document(s ) 2019-nCoV [facility] RNA XXX GAURAV+probe- Imp This lab was ordered by [facility] and reported by [facility] Procedure
[2020-05-17] MEDS ORDERED: SODIUM CHLORIDE 1,000 ML IV SCH (08:00)
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
[2020-05-17 09:19] LABS: COCAINE, UR NEGATIVE ng/ml (CUTOFF=300)
[2020-05-17 09:21] LABS: METHADONE, UR NEGATIVE ng/ml (CUTOFF=300); OPIATES, URI NEGATIVE ng/ml (CUTOFF=300); PHENCYCLIDINE,URINE NEGATIVE ng/ml (CUTOFF=25); URINE AMPHETAMINES NEGATIVE ng/ml (CUTOFF=500); URINE BARBITURATES NEGATIVE ng/ml (CUTOFF=200)
[2020-05-17 09:24] LABS: URINE BENZODIAZEPINES POSITIVE ng/ml (CUTOFF=200)
--- NOTE | 2020-05-17 10:03 | EKG ---
Test Reason : Blood Pressure : / mmHG Vent. Rate : 062 BPM Atrial Rate : 062 BPM P-R Int : 154 ms QRS Dur : 094 ms QT Int : 418 ms P-R-T Axes : 023 012 054 degrees QTc Int : 424 ms NORMAL SINUS RHYTHM NORMAL ECG WHEN COMPARED WITH ECG OF 12-APR-2020 22:50, T WAVE AMPLITUDE HAS INCREASED IN ANTERIOR LEADS QT HAS SHORTENED Confirmed by MD Jessee, Car ([id number]) on 05/17/2020 10:03:09 AM Referred By: Confirmed By:Car Hooks MD
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
[2020-05-17] MEDS ORDERED: THIAMINE HCL 100 MG TABLET (FP) ONE (11:39)
[2020-05-17] MEDS ORDERED: MULTIVITAMINS (DAILY MVI) TABLET (FP) ONE (11:39)
[2020-05-17] MEDS ORDERED: FOLIC ACID 1 MG TABLET (FP) ONE (11:39)
[2020-05-17] MEDS: FOLIC ACID 1 MG TABLET (FP) PO SCH (11:40)
[2020-05-17] MEDS: MULTIVITAMINS (DAILY MVI) TABLET (FP) PO SCH (11:40)
[2020-05-17] MEDS: THIAMINE HCL 100 MG TABLET (FP) PO SCH (11:40)
[2020-05-17] MEDS ORDERED: LORazepam 2 MG/ML SDV VIAL IVPUSH ONE (12:00)
[2020-05-17] MEDS ORDERED: LORazepam 2 MG/ML SDV VIAL ONE ×2 (12:05→14:29)
[2020-05-17] MEDS ORDERED: LORazepam 2 MG/ML SDV VIAL IVPUSH PRN ×2 (14:26→19:19)
[2020-05-17] MEDS ORDERED: PT OWN MED DRAWER 7, Y5N ONE (20:39)
[2020-05-17] MEDS: APIXABAN 5 MG TABLET PO SCH (21:28)
[2020-05-17] MEDS: SACUBITRIL/VALSARTAN 24 MG-26 MG TABLET PO SCH (21:29)
[2020-05-17] MEDS ORDERED: traMADol HCL 50 MG TABLET PO ONE (22:04)
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
[2020-05-18] MEDS ORDERED: PT OWN MED DRAWER 7, Y5N ONE (08:20)
[2020-05-18] MEDS: THIAMINE HCL 100 MG TABLET (FP) PO SCH (09:25)
[2020-05-18] MEDS: SPIRONOLACTONE 25 MG TABLET PO SCH (09:25)
[2020-05-18] MEDS: APIXABAN 5 MG TABLET PO SCH ×2 (09:25→21:29)
[2020-05-18] MEDS: FOLIC ACID 1 MG TABLET (FP) PO SCH (09:25)
[2020-05-18] MEDS: MULTIVITAMINS (DAILY MVI) TABLET (FP) PO SCH (09:25)
[2020-05-18] MEDS: SACUBITRIL/VALSARTAN 24 MG-26 MG TABLET PO SCH ×2 (09:26→22:34)
[2020-05-18 09:29] LABS: BASO % 1.3 % (0-2.0); EOS % 0.9 % (0-4.5); HEMATOCRIT 34.7 % (35.4-49); LYMPH % 32.5 % (8-40); MCH 32.3 pg (25.7-33.7); MCHC 34.5 g/dl (32.0-35.9); MEAN CELL VOLUME 93.5 fl (80-96); MONO % 7.8 % (3.8-10.2); NEUT % 57.5 % (42.8-82.8); RBC 3.71 M/mm3 (4.00-5.60); RDW 14.6 % (11.9-15.9)
[2020-05-18 09:36] LABS: INR 1.43 (0.83-1.09); PROTHROMBIN TIME (PATIENT) 16.7 SEC (9.7-13.0)
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
[2020-05-18 09:51] LABS: POTASSIUM 3.6 mmol/L (3.5-5.1)
[2020-05-18 09:54] LABS: ALBUMIN 3.2 g/dl (3.4-5.0); BILIRUBIN,TOTAL 4.1 mg/dL (0.2-1); BLOOD UREA NITROGEN 12.8 mg/dL (7-18); CALCIUM 8.1 mg/dL (8.5-10.1); CREATININE 0.8 mg/dL (0.55-1.3); TOT PROT 6.4 g/dl (6.4-8.2)
[2020-05-18] MEDS ORDERED: FLU VACCINE (FLULAVAL) PF 60 MCG/0.5 ML SYRINGE 2020-2021 IM ONE (10:00)
[2020-05-18 11:47] LABS: PLATELET ESTIMATE NORMAL
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
[2020-05-18 12:31] LABS: PLATELET COUNT 116.9 K/MM3 (134-434)
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
[2020-05-18] MEDS: metoPROLOL SUCCINATE 25 MG TAB.SR.24H (FP) PO SCH (20:27)
[2020-05-18 23:05] VITALS: TEMP 98.2
[2020-05-19 06:30] LABS: HEMATOCRIT 35.1 % (35.4-49); MCH 31.6 pg (25.7-33.7); MCHC 34.1 g/dl (32.0-35.9); MEAN CELL VOLUME 92.7 fl (80-96); MEAN PLT VOLUME 8.7 fl (7.5-11.1); PLATELET COUNT 70 K/MM3 (134-434); RBC 3.78 M/mm3 (4.00-5.60); RDW 14.4 % (11.9-15.9); WHITE BLOOD COUNT 5.5 K/mm3 (4.0-10.0)
[2020-05-19 07:05] LABS: ALBUMIN 3.2 g/dl (3.4-5.0); BILIRUBIN,DIRECT 1.2 mg/dL (0.0-0.2); CALCIUM 8.5 mg/dL (8.5-10.1); CREATININE 0.8 mg/dL (0.55-1.3); POTASSIUM 3.7 mmol/L (3.5-5.1)
[2020-05-19 07:09] LABS: BILIRUBIN,TOTAL 2.6 mg/dL (0.2-1); TOT PROT 6.6 g/dl (6.4-8.2)
[2020-05-19] MEDS ORDERED: PT OWN MED DRAWER 7, Y5N ONE (07:12)
[2020-05-19] MEDS: SPIRONOLACTONE 25 MG TABLET PO SCH (09:19)
[2020-05-19] MEDS: metoPROLOL SUCCINATE 25 MG TAB.SR.24H (FP) PO SCH (09:19)
[2020-05-19] MEDS: APIXABAN 5 MG TABLET PO SCH (09:19)
[2020-05-19] MEDS: SACUBITRIL/VALSARTAN 24 MG-26 MG TABLET PO SCH (09:19)
[2020-05-19] MEDS: FOLIC ACID 1 MG TABLET (FP) PO SCH (09:19)
[2020-05-19] MEDS: THIAMINE HCL 100 MG TABLET (FP) PO SCH (09:19)
[2020-05-19] MEDS: MULTIVITAMINS (DAILY MVI) TABLET (FP) PO SCH (09:19)
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
--- NOTE | 2020-05-19 13:52 | PN ---
Teaching Attending Note Name of Resident: Benedict Pedroza ATTENDING PHYSICIAN STATEMENT I saw and evaluated the patient. I reviewed the resident's note and discussed the case with the resident. I agree with the resident's findings and plan as documented. SUBJECTIVE: No complaints today. Patient eager to go home. Would like to follow with physica l therapy outpatient for his chronic back pain. Patient understands cessation of all products containing alcohol. No events overnight OBJECTIVE: Vital Signs Temperature 98.2 F 05/19/20 08:25 Pulse Rate 106 H 05/19/20 08:25 Respiratory Rate 18 05/19/20 08:25 Blood Pressure 113/63 05/19/20 08:25 O2 Sat by Pulse Oximetry (%) 97 05/19/20 08:25 Pe: Gen: NAD, awake, alert, oriented HEENT: NC/AT, YAQUELIN, sclera anicteric, MMM LUNG: CTA b/l without wheezes or rales CARD: RRR no murmurs appreciated ABD: Soft, NT/ND, + BS, no hepatomegaly, slight nodularity of liver edge noted, no rebound EXT: No edema noted CBC, BMP 05/19/20 05:15 05/19/20 05:15 Active Medications Apixaban (Eliquis -) 5 mg PO BID [facility] Last Admin: 05/19/20 09:19 Dose: 5 mg Documented by: Folic Acid (Folic Acid -) 1 mg PO DAILY [facility] Last Admin: 05/19/20 09:19 Dose: 1 mg Documented by: Lorazepam (Ativan Injection -) 1 mg IVPUSH Q4H PRN PRN Reason: AGITATION Last Admin: 05/18/20 15:02 Dose: 1 mg Documented by: Metoprolol Succinate (Toprol Xl -) 25 mg PO DAILY [facility] Last Admin: 05/19/20 09:19 Dose: 25 mg Documented by: Multivitamins/Minerals/Vitamin C (Tab-A-Vit -) 1 tab PO DAILY [facility] Last Admin: 05/19/20 09:19 Dose: 1 tab Documented by: Sacubitril/Valsartan (Entresto 24 Mg-26 Mg Tablet) 1 tab PO BID [facility] Last Admin: 05/19/20 09:19 Dose: 1 tab Documented by: Spironolactone (Aldactone -) 25 mg PO DAILY [facility] Last Admin: 05/19/20 09:19 Dose: 25 mg Documented by: Thiamine HCl (Vitamin B1 -) 100 mg PO DAILY JIMMY Last Admin: 05/19/20 09:19 Dose: 100 mg Documented by: ASSESSMENT AND PLAN: Alcoholic Hepatitis Alcohol Abuse Syndrome Sinus Bradycardia HFrEF History, not in exacerbation Paroxysmal Atrial Fibrillation AICD implantation history --Patient with downtrending LFTs today. Would need to f/u outpatient for long- term care and LFT normalization --No steroids indicated today per discriminant function --Alcohol cessation counselling discussed at length with patient --Completed detox --Provided insight into receiving alcohol abuse care if he wants help with cessation --Patient's bradycardia resolved; no events seen on monitor --Continue patient's Beta-blockade (Toprol XL 25mg daily) --Continue Entresto BID --Continue Aldacton 25mg qdaily --Continue Eliquis for Afib embolus prophylaxis BID --Patient is optimized for discharge and continued follow-up with outpatient care --CT spine reviewed and discussed with patient; patient to see physical therapy and PMD DO Jack Domínguez
[2020-05-19 14:44] VITALS: BP 104/62; PULSE 78
--- NOTE | 2020-05-19 15:06 | DS ---
Physical Exam: SUBJECTIVE: Patient seen and examined at bedside. No acute events overnight. OBJECTIVE: Vital Signs Period Temp Pulse Resp BP Sys/Andrea Pulse Ox Last 24 Hr 97.8 F-98.8 F 55-106 18-20 104-126/62-75 96-98 PHYSICAL EXAM GENERAL: NAD AAOx3 HEAD: Normal with no signs of trauma. EYES: EOMI Sclera Clear ENT: MMM NECK: Trachea midline, full range of motion, supple. LUNGS: CTAB HEART: RRR S1S2 ABDOMEN: Soft, NDNT. Surgical scar left anterior chest wall and left axillary region (s/p AICD placement) NEUROLOGICAL: Cranial nerves II through XII grossly intact. PSYCH: Normal mood, normal affect. SKIN: Warm, dry. LABS Laboratory Results - last 24 hr 05/19/20 05/19/20 05:15 05:15 WBC 5.5 RBC 3.78 L Hgb 12.0 Hct 35.1 L MCV 92.7 MCH 31.6 MCHC 34.1 RDW 14.4 Plt Count 70 L D MPV 8.7 Sodium 132 L Potassium 3.7 Chloride 100 Carbon Dioxide 24 Anion Gap 8 BUN 9.0 Creatinine 0.8 Est GFR (CKD-EPI)AfAm 131.34 Est GFR (CKD-EPI)NonAf 113.32 Random Glucose 118 H Calcium 8.5 Total Bilirubin 2.6 H Direct Bilirubin 1.2 H AST 132 H ALT 89 H Alkaline Phosphatase 314 H Total Protein 6.6 Albumin 3.2 L HOSPITAL COURSE: Date of Admission:05/17/20 Patient is a 39 year old year old male with history of HFrEF (EF 15%, s/p AICD placement at [facility] one month ago), Afib (on Eliquis), alcohol use disorder, presented to [facility] with a complaint of chest pain. Troponin was negative x2. Due to concern for AICD lead dislodgment, EP was consulted who evaluated the patient and determined leads were properly positioned. [employer] rep interrogated AICD and found device to have normal function without recorded events. On tele, patient was noted to be bradycardic to 27. Patient bradycardia resolved. Patient was evaluated by Cardiology who cleared patient for discharge and recommended patient be discharged on his home medications and to follow up as outpatient for MATTHEW sleep study. Date of Discharge: 05/19/20 Minutes to complete discharge: 35 Discharge Summary Problems reviewed: Yes Reason For Visit: ALCOHOL ABUSE Condition: Stable - Instructions Diet, Activity, Other Instructions: You were seen here for your chest pain. While you were admitted you were found to have a very low heart rate. We held your one of your medications and decreased the dosing for now as dictated by our cardiologists. We made sure your defibrillator was in place. Unfortunately, your liver enzymes increased during the stay, however they continue to trend towards your normal. MEDICATIONS: It is extremely important to abstain from all forms of alcohol (beer, wine, liquor) as this can continue to damage your liver and cause your liver to fail. Please continue to take Metoprolol 25mg daily for your heart rate and heart Continue to take Eliquis 5mg TWICE daily Continue to take Entresto Follow-up: Please follow-up with your primary doctor in 1 week to update them on your care. You will need a repeat liver enzyme level next week to confirm your enzy mes continue to go down. If you do not have one you can make an appointment with Dr. Ornelas at the [facility] (given in packet) We have referred you to a liver specialist. You should see them within 2 weeks to establish care for your liver. Please follow-up with a sleep study as this can impact your night-time oxygen and heart rate amongst other health problems. Please follow-up with your dye house helper for adjustments on your Metoprolol and defibrillator as they see fit. Please follow-up with physical therapy Referrals: Trey Nicolas MD [Staff Physician] - 1 Week (Sleep study) José Corral DO [Staff Physician] - Jose Carlos Ornelas MD [Staff Physician] - Ashwin Larson MD [Staff Physician] - Disposition: HOME - Home Medications Comprehensive Discharge Medication List: Ambulatory Orders Apixaban [Eliquis] 5 mg PO BID 03/29/20 Folic Acid 1 mg PO DAILY 03/29/20 Metoprolol Succinate [Toprol Xl] 25 mg PO DAILY 03/29/20 Multivitamin [Poly-Vitamin] 1 tab PO DAILY 03/29/20 Sacubitril/Valsartan [Entresto 24 mg-26 mg Tablet] 1 tab PO BID 03/29/20 Spironolactone 25 mg PO DAILY 03/29/20 Thiamine Mononitrate (Vit B1) [Cyto B-1] 3 tab PO DAILY 03/29/20 Magnesium Oxide 400 mg PO BID 04/13/20 Lactobacillus Acidophilus [Bacid -] 1 tab PO TIDAC #90 tab 04/15/20 This patient is new to me today: No Emergency Visit: Yes ED Registration Date: 05/17/20 Care time: The patient presented to the Emergency Department on the above date and was hospitalized for further evaluation of their emergent condition. Critical Care patient: No - Discharge Referral Referred to [facility] No ATTENDING PHYSICIAN STATEMENT I saw and evaluated the patient. I reviewed the resident's note and discussed the case with the resident. I agree with the resident's findings and plan as documented. SUBJECTIVE: OBJECTIVE: ASSESSMENT AND PLAN:
== END 2020-05-19 14:44 | disposition home or self-care (01) | DRG 205 ==
LOC: JER 02:29 → JERBED 05:34 → J4W 16:41
PROVIDERS: ADMIT Internal Medicine; ATTEND Internal Medicine
PROC: HZ2ZZZZ Detoxification Services for Substance Abuse Treatment (ICD-10-PCS; principal; 2020-05-17)
DX: I42.6 Alcoholic cardiomyopathy (principal); F10.239 Alcohol dependence with withdrawal, unspecified; R00.1 Bradycardia, unspecified; R07.89 Other chest pain; R74.01 Elevation of levels of liver transaminase levels; M54.2 Cervicalgia; R11.2 Nausea with vomiting, unspecified; E80.6 Other disorders of bilirubin metabolism; K70.10 Alcoholic hepatitis without ascites; I11.0 Hypertensive heart disease with heart failure; I50.22 Chronic systolic (congestive) heart failure; Z95.810 Presence of automatic (implantable) cardiac defibrillator; I42.0 Dilated cardiomyopathy; I08.1 Rheumatic disorders of both mitral and tricuspid valves; I48.0 Paroxysmal atrial fibrillation
CPT/HCPCS: 36415; 70450-TC; 71045-TC-FY; 71046-TC-FY; 72070-TC-FY; 72125-TC; 76700-TC; 80053; 80307; 82248; 82550; 84484; 85025; 85027; 85610; 93005; 93010; 97116-GP; 97161-GP; 99285-25; C9803; Q2036; U0003

== ENCOUNTER 2020-06-09 22:51 | Emergency (ER) | payer OTHER ==
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
[2020-06-09 23:09] VITALS: BP 121/76; PULSE 78; TEMP 97.7; BMI 26.2
== END 2020-06-10 02:46 | disposition home or self-care (01) ==
LOC: FER 22:51
DX: F10.10 Alcohol abuse, uncomplicated (principal)
CPT/HCPCS: 99283-25; C9803; U0003

== ENCOUNTER 2020-08-14 15:13 | Emergency (ER) | payer OTHER ==
[2020-08-14 15:20] VITALS: TEMP 98.6; BMI 25.1
[2020-08-14] MEDS ORDERED: SODIUM CHLORIDE 1,000 ML IV STA (16:14)
[2020-08-14] MEDS ORDERED: OCTREOTIDE ACETATE 50 MCG/1 ML - 1 ML VIAL IVPUSH ONE (16:14)
[2020-08-14] MEDS ORDERED: ONDANSETRON 4 MG/2 ML VIAL IVPB ONE (16:14)
[2020-08-14] MEDS ORDERED: PANTOPRAZOLE SODIUM 40 MG in SODIUM CHLORIDE 100 ML IVPB ONE (16:14)
[2020-08-14] MEDS ORDERED: PANTOPRAZOLE SODIUM 80 MG in SODIUM CHLORIDE 100 ML IVPB SCH (16:15)
[2020-08-14] MEDS ORDERED: OCTREOTIDE ACETATE 1,200 MCG in DEXTROSE 5%-WATER - 488 ML IVPB SCH (16:15)
[2020-08-14] MEDS ORDERED: chlordiazePOXIDE HCL 25 MG CAPSULE PO ONE ×2 (16:32→23:30)
[2020-08-14] MEDS ORDERED: CEFTRIAXONE 1 GM in DEXTROSE 5%-WATER - 100 ML IVPB ONE (16:32)
[2020-08-14] MEDS ORDERED: PANTOPRAZOLE SODIUM 40 MG VIAL ONE (16:47)
[2020-08-14] MEDS ORDERED: chlordiazePOXIDE HCL 25 MG CAPSULE ONE ×2 (16:47→23:46)
[2020-08-14] MEDS ORDERED: PANTOPRAZOLE SODIUM 40 MG/100 ML BAG IVPB ONE (16:47)
[2020-08-14 17:01] LABS: BASO % 1.5 % (0-2.0); EOS % 0.3 % (0-4.5); HEMATOCRIT 25.1 % (35.4-49); HEMOGLOBIN 8.8 GM/dL (11.7-16.9); LYMPH % 26.8 % (8-40); MCH 32.8 pg (25.7-33.7); MEAN CELL VOLUME 93.5 fl (80-96); MEAN PLT VOLUME 9.3 fl (7.5-11.1); MONO % 7.4 % (3.8-10.2); PLATELET COUNT 177 K/MM3 (134-434); RBC 2.68 M/mm3 (4.00-5.60); RDW 16.4 % (11.9-15.9); RETICULOCYTES 1.19 % (0.5-1.5); WHITE BLOOD COUNT 7.3 K/mm3 (4.0-10.0)
[2020-08-14] MEDS ORDERED: ONDANSETRON 4 MG/2 ML VIAL ONE ×2 (17:05→21:27)
[2020-08-14] MEDS ORDERED: OCTREOTIDE ACETATE 100 MCG/1 ML ONE (17:06)
[2020-08-14 17:07] LABS: INR 1.45 (0.83-1.09); PROTHROMBIN TIME (PATIENT) 17.7 SEC (9.7-13.0)
[2020-08-14 17:10] LABS: ACTIVATED PTT 35.8 SECONDS (25.2-36.5)
[2020-08-14 17:18] LABS: CHLORIDE 96 mmol/L (98-107); SODIUM 134 mmol/L (136-145)
[2020-08-14] MEDS ORDERED: CEFTRIAXONE 1 GM/50 ML BAG ONE (17:19)
[2020-08-14 17:20] LABS: CALCIUM 9.1 mg/dL (8.5-10.1)
[2020-08-14 17:21] LABS: ALBUMIN 3.2 g/dl (3.4-5.0); ANION GAP 11 MMOL/L (8-16); BLOOD UREA NITROGEN 24.5 mg/dL (7-18); CO2 26 mmol/L (21-32); GLUCOSE,RANDOM 92 mg/dL (74-106)
[2020-08-14 17:23] LABS: BILIRUBIN,DIRECT 4.1 mg/dL (0.0-0.2); IRON SERUM 216 ug/dL (50-175)
[2020-08-14 17:24] LABS: CREATININE 1.5 mg/dL (0.55-1.3); SGOT/AST 245 U/L (15-37); SGPT/ALT 101 U/L (13-61); TOTAL IRON BINDING CAPACITY 205 ug/dL (250-450)
[2020-08-14 17:25] LABS: BILIRUBIN,TOTAL 6.2 mg/dL (0.2-1); TOT PROT 6.7 g/dl (6.4-8.2)
[2020-08-14 17:26] LABS: ALK PHOS 299 U/L (45-117)
[2020-08-14 17:27] LABS: LDH 233 U/L (87-246)
[2020-08-14] MEDS ORDERED: SODIUM CHLORIDE 0.9% 500 ML INFUS.BAG IV ONE (19:39)
[2020-08-14 20:27] LABS: BASO % 1.4 % (0-2.0); EOS % 0.1 % (0-4.5); HEMATOCRIT 20.8 % (35.4-49); HEMOGLOBIN 7.2 GM/dL (11.7-16.9); LYMPH % 49.4 % (8-40); MCH 32.4 pg (25.7-33.7); MCHC 34.7 g/dl (32.0-35.9); MEAN CELL VOLUME 93.3 fl (80-96); MEAN PLT VOLUME 10.1 fl (7.5-11.1); MONO % 6.1 % (3.8-10.2); PLATELET COUNT 145 K/MM3 (134-434); RBC 2.23 M/mm3 (4.00-5.60); RDW 16.4 % (11.9-15.9); WHITE BLOOD COUNT 5.5 K/mm3 (4.0-10.0)
[2020-08-14] MEDS ORDERED: ONDANSETRON 4 MG/2 ML VIAL IVPUSH ONE (21:25)
[2020-08-14 22:47] VITALS: BP 110/67; PULSE 72
== END 2020-08-15 00:30 | disposition short-term general hospital (02) ==
LOC: JER 15:13
PROC: 3E033NZ Introduction of Analgesics, Hypnotics, Sedatives into Peripheral Vein, Percutaneous Approach (ICD-10-PCS; principal; 2020-08-14)
PROC: 3E033GC Introduction of Other Therapeutic Substance into Peripheral Vein, Percutaneous Approach (ICD-10-PCS; 2020-08-14)
DX: F10.230 Alcohol dependence with withdrawal, uncomplicated (principal); I42.9 Cardiomyopathy, unspecified; Z95.810 Presence of automatic (implantable) cardiac defibrillator; I95.9 Hypotension, unspecified; K92.0 Hematemesis
CPT/HCPCS: 36415; 71046-TC-FY; 80053; 82248; 82272; 82550; 82728; 83010; 83540; 83550; 83615; 83690; 84484; 85025; 85045; 85610; 85730; 86850; 86900; 86901; 86922; 93005; 93010; 99285-25; C9803; U0003

== ENCOUNTER 2020-09-24 18:08 | Emergency (ER) | payer OTHER ==
[2020-09-24 18:32] VITALS: BMI 25.7
[2020-09-24] MEDS ORDERED: SODIUM CHLORIDE 0.9% 500 ML INFUS.BAG IV ONE (18:45)
[2020-09-24] MEDS ORDERED: chlordiazePOXIDE HCL 25 MG CAPSULE PO ONE (19:04)
[2020-09-24 19:08] LABS: VENOUS BASE EXCESS -14.4 mmol/L (-2-2); VENOUS O2 SATURATION 24.8 % (70-80); VENOUS PCO2 26.4 mmHg (38-52); VENOUS PH 7.255 (7.310-7.410)
[2020-09-24 19:09] LABS: BASO % 0.3 % (0-2.0); HEMATOCRIT 14.2 % (35.4-49); LYMPH % 8.3 % (8-40); MCHC 34.1 g/dl (32.0-35.9); MEAN CELL VOLUME 102.7 fl (80-96); MEAN PLT VOLUME 9.8 fl (7.5-11.1); NEUT % 83.4 % (42.8-82.8); PLATELET COUNT 183 K/MM3 (134-434); RBC 1.39 M/mm3 (4.00-5.60); RDW 15.7 % (11.9-15.9); WHITE BLOOD COUNT 10.5 K/mm3 (4.0-10.0)
[2020-09-24 19:14] LABS: HEMOGLOBIN 4.9 GM/dL (11.7-16.9)
[2020-09-24 19:16] LABS: INR 1.45 (0.83-1.09); PROTHROMBIN TIME (PATIENT) 17.6 SEC (9.7-13.0)
[2020-09-24 19:19] LABS: ACTIVATED PTT 33.6 SECONDS (25.2-36.5)
[2020-09-24] MEDS ORDERED: chlordiazePOXIDE HCL 25 MG CAPSULE ONE (20:01)
[2020-09-24 20:05] LABS: ALBUMIN 2.5 g/dl (3.4-5.0); CALCIUM 7.7 mg/dL (8.5-10.1)
[2020-09-24] MEDS ORDERED: METOCLOPRAMIDE HCL INJECTION 10 MG/2 ML VIAL IVPB ONE (20:06)
[2020-09-24] MEDS ORDERED: LORazepam 2 MG/ML SDV VIAL IVPUSH ONE (20:07)
[2020-09-24 20:10] LABS: BILIRUBIN,TOTAL 5.2 mg/dL (0.2-1); TOT PROT 5.8 g/dl (6.4-8.2)
[2020-09-24] MEDS ORDERED: METOCLOPRAMIDE HCL INJECTION 10 MG/2 ML VIAL ONE (20:13)
[2020-09-24] MEDS ORDERED: LORazepam 2 MG/ML SDV VIAL ONE (20:13)
[2020-09-24] MEDS ORDERED: LACTATED RINGERS SOLUTION 1,000 ML IV STA (20:50)
[2020-09-24 20:52] LABS: CREATININE 8.2 mg/dL (0.55-1.3); POTASSIUM 6.7 mmol/L (3.5-5.1)
[2020-09-24] MEDS ORDERED: SODIUM CHLORIDE 3% 500 ML/500 ML INFUS.BAG IV ONE (20:53)
[2020-09-24] MEDS ORDERED: CALCIUM GLUCONATE 10% - 1,000 MG/10 ML VIAL IVPUSH ONE (20:57)
[2020-09-24] MEDS ORDERED: DEXTROSE 50%-WATER - 25 GM/50 ML VIAL IVPUSH ONE ×2 (20:58)
[2020-09-24] MEDS ORDERED: FUROSEMIDE 40 MG/4 ML INJECTABLE VIAL IVPUSH ONE (20:58)
[2020-09-24] MEDS ORDERED: INSULIN (NOVOLOG) ASPART 100 UNITS/ML 10ML VIAL SQ ONE (20:58)
[2020-09-24] MEDS ORDERED: PANTOPRAZOLE SODIUM 40 MG VIAL IVPUSH ONE (21:05)
[2020-09-24 21:06] LABS: BLOOD UREA NITROGEN 148.3 mg/dL (7-18)
[2020-09-24] MEDS ORDERED: PANTOPRAZOLE SODIUM 80 MG in SODIUM CHLORIDE 100 ML IVPB SCH (21:15)
[2020-09-24] MEDS ORDERED: DEXTROSE 5%-NORMAL SALINE 1,000 ML IV SCH (21:15)
[2020-09-24] MEDS ORDERED: DEXTROSE 50%-WATER 25 GM/50 ML DISP.SYRIN ONE (21:19)
[2020-09-24] MEDS ORDERED: CALCIUM GLUCONATE 10% - 1,000 MG/10 ML VIAL ONE (21:19)
[2020-09-24] MEDS ORDERED: PANTOPRAZOLE SODIUM 40 MG VIAL ONE (21:20)
[2020-09-24] MEDS ORDERED: ALBUTEROL SO4 2.5/IPRATROPIUM 0.5 INH SOL 3 ML VIAL.NEB. NEB ONE (21:21)
[2020-09-24] MEDS ORDERED: INSULIN REGULAR HUMAN 100 UNITS/ML *VIAL IV ONE (21:29)
[2020-09-24] MEDS ORDERED: FUROSEMIDE 40 MG/4 ML INJECTABLE VIAL ONE (21:32)
[2020-09-24] MEDS: ALBUTEROL SO4 2.5/IPRATROPIUM 0.5 INH SOL 3 ML VIAL.NEB. NEB SCH ×3 (21:59→23:33)
[2020-09-24] MEDS ORDERED: INSULIN (NOVOLOG) ASPART 100 UNITS/ML 10ML VIAL NR ONE (22:01)
[2020-09-24] MEDS ORDERED: OCTREOTIDE ACETATE 200 MCG, OCTREOTIDE ACETATE 1,000 MCG in DEXTROSE 5%-WATER - 496 ML IVPB SCH (22:30)
[2020-09-24 23:18] LABS: EPI CELLS 0 /uL (0-25.1); HYALINE CASTS 0 /uL (0-3.1); PH,URINE 5.5 (5.0-8.0); URINE APPEARANCE CLEAR; URINE BACTERIA 10 /uL (0-1359); URINE BILIRUBIN NEGATIVE (NEGATIVE); URINE COLOR YELLOW; URINE GLUCOSE (UA) 2+ (NEGATIVE); URINE KETONE TRACE (NEGATIVE); URINE LEUK ESTERASE NEGATIVE (NEGATIVE); URINE NITRITE NEGATIVE (NEGATIVE); URINE PROTEIN TRACE (NEGATIVE); URINE RBC 26 /uL (0-23.9); URINE UROBILINOGEN 0.2 mg/dL (0.2-1.0); URINE WBC 1 /uL (0-25.8)
[2020-09-24 23:38] LABS: BASO % 0.3 % (0-2.0); HEMATOCRIT 16.3 % (35.4-49); LYMPH % 8.9 % (8-40); MEAN CELL VOLUME 97.1 fl (80-96); MEAN PLT VOLUME 9.8 fl (7.5-11.1); MONO % 9.7 % (3.8-10.2); NEUT % 81.1 % (42.8-82.8); PLATELET COUNT 166 K/MM3 (134-434); RBC 1.68 M/mm3 (4.00-5.60); RDW 16.2 % (11.9-15.9); WHITE BLOOD COUNT 10.6 K/mm3 (4.0-10.0)
[2020-09-24 23:39] LABS: HEMOGLOBIN 5.7 GM/dL (11.7-16.9)
[2020-09-24 23:48] LABS: INR 1.38 (0.83-1.09); PROTHROMBIN TIME (PATIENT) 16.8 SEC (9.7-13.0)
[2020-09-24 23:51] LABS: ACTIVATED PTT 33.5 SECONDS (25.2-36.5)
[2020-09-25 00:02] LABS: POTASSIUM 4.2 mmol/L (3.5-5.1)
[2020-09-25 00:04] LABS: ALBUMIN 2.5 g/dl (3.4-5.0); CALCIUM 7.6 mg/dL (8.5-10.1)
[2020-09-25 00:08] LABS: CREATININE 7.1 mg/dL (0.55-1.3)
[2020-09-25 00:09] LABS: BILIRUBIN,TOTAL 6.1 mg/dL (0.2-1); TOT PROT 5.6 g/dl (6.4-8.2)
[2020-09-25 00:24] LABS: BLOOD UREA NITROGEN 152.7 mg/dL (7-18)
[2020-09-25 03:05] VITALS: TEMP 97.5
[2020-09-25 03:07] VITALS: BP 109/60; PULSE 86
== END 2020-09-25 02:15 | disposition short-term general hospital (02) ==
LOC: JER 18:08 → JERBED 21:57 → UNDOADMIN 21:57 → JERBED 09-25 02:15
PROC: 3E033NZ Introduction of Analgesics, Hypnotics, Sedatives into Peripheral Vein, Percutaneous Approach (ICD-10-PCS; principal; 2020-09-24)
PROC: 3E033GC Introduction of Other Therapeutic Substance into Peripheral Vein, Percutaneous Approach (ICD-10-PCS; 2020-09-24)
PROC: 3E0337Z Introduction of Electrolytic and Water Balance Substance into Peripheral Vein, Percutaneous Approach (ICD-10-PCS; 2020-09-24)
DX: F10.239 Alcohol dependence with withdrawal, unspecified (principal); E87.2 Acidosis; N17.9 Acute kidney failure, unspecified; E86.0 Dehydration; D64.9 Anemia, unspecified; E87.1 Hypo-osmolality and hyponatremia
CPT/HCPCS: 36415; 36430; 70450-TC; 71045-TC-FY; 71250-TC; 72125-TC; 74176-TC; 76937; 80053; 81003; 82140; 82272; 82436; 82550; 82553; 82803; 82962; 83605; 83690; 83935; 84133; 84300; 84484; 85025; 85610; 85730; 86850; 86900; 86901; 86922; 87040; 87086; 93005; 93010; 99291; 99292; C9803; P9058; U0003